=== PATIENT | female | born 1960 | race African-American/Black ===

== ENCOUNTER 2020-05-21 11:00 | Outpatient (RCR) | payer OTHER, SELFPAY ==
--- NOTE | 2020-05-05 17:07 | MHC.PT.EP ---
[facility] [place] [facility] [place] [facility] [place] [facility] [address] Juliet Guillen [address] [phone] F: [phone] F: [phone] F: [phone] F: [phone] Physical Therapy Plan of Care Date of Evaluation: 05/05/20 Date of Surgery: NA Diagnosis: WEAKNESS Assessment: Pt IS 59 YO F WITH MS REFERRED TO PT FROM DR MCDOWELL WITH WEAKNESS. Pt REPORTS SHE HAS BEEN FEELING WEAK AND STIFF SINCE SHE STARTED WORKING FROM HOME 8 MONTHS AGO ([employer]). PRESENTS WITH OVERALL DECREASE IN CORE/LE STRENGTH AND HIP FLEXIBILTY. Pt WITH DECREASED BAL (MS HX) AND SOME C/O B GROIN PAIN AT TIMES WITH GT. Pt SHOULD BENEFIT FROM PT TO HELP INCREASE OVERALL FLEXIBILITY AND STRENGTH WITH CONTINUING MONITORING OF PELVIC SYMMETRY (SINCE SHE FEELS OUT OF ALIGNMENT AND WORK ON BALANCE ALL TO IMPROVE FUNCTIONAL MOBILITY Frequency and Duration: The patient will be seen 2X/WK X 6 WEEKS Short Term Goals: 1. I HEP WITH DC EX PLAN 2. DECREASED GROIN PAIN AT LEAST 50% WITH GT Research Anthropologist Goals: 1. Pt TO REPORT IMPROVED ALIGNMENT 2. Pt TO REPORT OVERALL LESS STIFFNESS AND GENERALIZED WEAKNESS 3. HIP STRENGTH AT LEAST 4/5 T/O B 4. QUAD AND HS STRENGTH AT LEAST 4/5 EA B 5. IMPROVED LEFI Treatment Plan: Modalities to reduce pain, spasms and effusion. Manual therapy to restore motion and function. Therapeutic exercise to improve strength and flexibility. Neuromuscular re-education for posture and balance. Therapeutic activities to return to functional activities of daily living. Please sign and return to therapist. Thank you for your referral.
--- NOTE | 2020-05-05 17:07 | MHC.PT.EP ---
[facility] [place] Office [place] Office [place] [facility] [address] Juliet Guillen [address] [phone] F: [phone] F: [phone] F: [phone] F: [phone] Physical Therapy Plan of Care Date of Evaluation: 05/05/20 Date of Surgery: NA Diagnosis: WEAKNESS Assessment: Pt IS 59 YO F WITH MS REFERRED TO PT FROM DR MCDOWELL WITH WEAKNESS. Pt REPORTS SHE HAS BEEN FEELING WEAK AND STIFF SINCE SHE STARTED WORKING FROM HOME 8 MONTHS AGO ([employer]). PRESENTS WITH OVERALL DECREASE IN CORE/LE STRENGTH AND HIP FLEXIBILTY. Pt WITH DECREASED BAL (MS HX) AND SOME C/O B GROIN PAIN AT TIMES WITH GT. Pt SHOULD BENEFIT FROM PT TO HELP INCREASE OVERALL FLEXIBILITY AND STRENGTH WITH CONTINUING MONITORING OF PELVIC SYMMETRY (SINCE SHE FEELS OUT OF ALIGNMENT AND WORK ON BALANCE ALL TO IMPROVE FUNCTIONAL MOBILITY Frequency and Duration: The patient will be seen 2X/WK X 6 WEEKS Short Term Goals: 1. I HEP WITH DC EX PLAN 2. DECREASED GROIN PAIN AT LEAST 50% WITH GT Phone Banker Goals: 1. Pt TO REPORT IMPROVED ALIGNMENT 2. Pt TO REPORT OVERALL LESS STIFFNESS AND GENERALIZED WEAKNESS 3. HIP STRENGTH AT LEAST 4/5 T/O B 4. QUAD AND HS STRENGTH AT LEAST 4/5 EA B 5. IMPROVED LEFI Treatment Plan: Modalities to reduce pain, spasms and effusion. Manual therapy to restore motion and function. Therapeutic exercise to improve strength and flexibility. Neuromuscular re-education for posture and balance. Therapeutic activities to return to functional activities of daily living. Please sign and return to therapist. Thank you for your referral.
== END 2020-06-25 13:36 | disposition other institution (70) ==
LOC: HO.PT 11:00
PROVIDERS: PCP Internal Medicine; Visit Provider Internal Medicine
DX: R53.1 Weakness (principal)
CPT/HCPCS: 97110; 97162; 97530

== ENCOUNTER 2020-11-06 12:01 | Outpatient (REF) | payer OTHER, SELFPAY ==
[2020-11-06 13:15] LABS: Estimated Average Glucose 174 mg/dL; Hemoglobin A1c % 7.7 %
[2020-11-06 13:24] LABS: Creatinine Urine 79.99 mg/dL; Microalbum/Creatinine Ratio Ur 133.7 ug/mg cr
[2020-11-06 13:28] LABS: Alanine Aminotransferase 33 U/L (0-31); Alkaline Phosphatase 91 U/L (39-117); Anion Gap 15 (12-20); Aspartate Amino Transferase 33 U/L (5-31); Bilirubin Direct 0.2 mg/dL (0.0-0.5); Bilirubin Total 0.5 mg/dL (0.0-1.0); Blood Urea Nitrogen 14 mg/dL (9-16); Calcium 10.2 mg/dL (8.4-10.2); Carbon Dioxide 22 mmol/L (22-29); Chloride 107 mmol/L (96-108); Cholesterol 141 mg/dL; Estimated Glomerular Filt Rate > 60; Glucose Random 166 mg/dL (60-115); HDL Cholesterol 64 mg/dL; LDL Cholesterol Calculated 59 mg/dl; Potassium 4.7 mmol/L (3.3-5.1); Sodium 139 mmol/L (135-145); Total Protein 7.1 g/dL (6.5-8.0); Triglycerides 91 mg/dL
[2020-11-07 13:41] LABS: Calcium (PTHI) 10.3 mg/dL (8.6-10.4); PTHI 65 pg/mL (14-64)
== END 2020-11-06 12:02 | disposition home or self-care (01) ==
LOC: HO.LAB 12:01
PROVIDERS: PCP Internal Medicine; Referring Provider Internal Medicine; Visit Provider Internal Medicine Endocrinology, Diabetes & Metabolism
DX: E11.22 Type 2 diabetes mellitus with diabetic chronic kidney disease (principal); N18.9 Chronic kidney disease, unspecified; E55.9 Vitamin D deficiency, unspecified; E21.3 Hyperparathyroidism, unspecified
CPT/HCPCS: 36415; 80053; 80061; 80076; 82043; 82248; 82306; 83036; 83970

== ENCOUNTER 2021-02-12 13:30 | Outpatient (REF) | payer OTHER, SELFPAY | END 2021-02-12 13:31 | disposition home or self-care (01) | LOC: HO.HMGCLDS 13:30 | PROVIDERS: PCP Internal Medicine; Visit Provider Internal Medicine | DX: Z20.822 Contact with and (suspected) exposure to COVID-19 (principal) | CPT/HCPCS: U0003; U0005 ==

== ENCOUNTER 2021-03-10 09:50 | Outpatient (REF) | payer OTHER, SELFPAY ==
[2021-03-10 11:00] LABS: Estimated Average Glucose 140 mg/dL; Hemoglobin A1C 150.4757 umol/L; Hemoglobin A1c % 6.5 %
== END 2021-03-10 09:51 | disposition home or self-care (01) ==
LOC: HO.LAB 09:50
PROVIDERS: PCP Internal Medicine; Referring Provider Internal Medicine Endocrinology, Diabetes & Metabolism; Visit Provider Internal Medicine
DX: E11.9 Type 2 diabetes mellitus without complications (principal)
CPT/HCPCS: 36415; 83036

== ENCOUNTER 2021-04-10 14:05 | Outpatient (REF) | payer OTHER, SELFPAY ==
--- NOTE | ~2021-04-10 | XR_ITS ---
EXAMINATION: XR ANKLE, LEFT CLINICAL INFORMATION: Ligament sprain COMPARISON: None TECHNIQUE: AP, lateral, and mortise views of the left ankle. FINDINGS: No fracture or dislocation. The ankle mortise is congruent. No joint effusion. Anterior and lateral soft tissue swelling. XR/XR ankle LT min 3V IMPRESSION: Anterior and lateral soft tissue swelling without acute osseous abnormality.
== END 2021-04-10 14:06 | disposition home or self-care (01) ==
LOC: HO.HMGCX 14:05
PROVIDERS: PCP Internal Medicine; Visit Provider Internal Medicine
DX: S93.402A Sprain of unspecified ligament of left ankle, initial encounter (principal); X58.XXXA Exposure to other specified factors, initial encounter; Y93.9 Activity, unspecified; Y92.9 Unspecified place or not applicable; Y99.9 Unspecified external cause status
CPT/HCPCS: 73610

== ENCOUNTER 2021-04-29 11:11 | Outpatient (REF) | payer OTHER, SELFPAY ==
[2021-04-29 12:22] LABS: Estimated Average Glucose 140 mg/dL; Hemoglobin A1C 150.5621 umol/L; Hemoglobin A1c % 6.5 %
[2021-04-29 12:30] LABS: Hematocrit 38.2 % (37.0-47.0); Hemoglobin 12.6 g/dl (12.0-16.0); Mean Corpuscular Hemoglobin 24.8 pg (27.0-33.0); Mean Corpuscular Volume 75.2 fL (80.0-98.0); Platelet Count 226 X10*3/uL (160-400); Red Blood Count 5.08 X10*6/uL (4.20-5.50); Red Cell Distribution Width 15.8 % (11.0-16.0); White Blood Count 6.6 X10*3/uL (4.8-10.8)
[2021-04-29 12:49] LABS: Alanine Aminotransferase 30 U/L (0-31); Albumin Level 4.1 g/dL (3.5-5.0); Alkaline Phosphatase 72 U/L (39-117); Anion Gap 15 (12-20); Aspartate Amino Transferase 32 U/L (5-31); Bilirubin Total 0.4 mg/dL (0.0-1.0); Blood Urea Nitrogen 18 mg/dL (9-16); Calcium 10.5 mg/dL (8.4-10.2); Carbon Dioxide 23 mmol/L (22-29); Chloride 106 mmol/L (96-108); Cholesterol 130 mg/dL; Estimated Glomerular Filt Rate > 60; Glucose Fasting 118 mg/dL (60-99); HDL Cholesterol 52 mg/dL; LDL Cholesterol Calculated 59 mg/dl; Potassium 4.3 mmol/L (3.3-5.1); Sodium 140 mmol/L (135-145); Total Protein 7.5 g/dL (6.5-8.0); Triglycerides 96 mg/dL
[2021-04-29 13:00] LABS: Creatinine Urine 61.61 mg/dL; Microalbum/Creatinine Ratio Ur 220.7 ug/mg cr
[2021-04-29 13:06] LABS: TSH reflex Free T4 2.11 uIU/mL (0.32-4.0)
== END 2021-04-29 11:12 | disposition home or self-care (01) ==
LOC: HO.LAB 11:11
PROVIDERS: PCP Internal Medicine; Visit Provider Internal Medicine
DX: E11.9 Type 2 diabetes mellitus without complications (principal); E78.5 Hyperlipidemia, unspecified; E27.8 Other specified disorders of adrenal gland; I10 Essential (primary) hypertension; I21.4 Non-ST elevation (NSTEMI) myocardial infarction
CPT/HCPCS: 36415; 80053; 80061; 82043; 83036; 84443; 85027

== ENCOUNTER 2021-05-23 10:02 | Outpatient (REF) | payer OTHER, SELFPAY ==
--- NOTE | ~2021-05-23 | MM_ITS ---
EXAMINATION: MM SCREENING DIGITAL BREAST TOMOSYNTHESIS, BILATERAL CLINICAL INFORMATION: Screening. Asymptomatic. The lifetime risk of breast cancer based on the Tyrer-Cuzick Model is 6%. COMPARISON: Mammography: 02/29/2020, 02/23/2019, 01/12/2018 TECHNIQUE: Digital breast tomosynthesis is performed in both the craniocaudal and mediolateral oblique views along with computer-aided detection (CAD). Synthesized 2D images are generated from the tomosynthesis. FINDINGS: There are scattered areas of fibroglandular density (ACR BI-RADS breast composition Category b). There are no significant masses, abnormal calcifications, or other abnormalities. MM/MM tomosynthesis screening BI IMPRESSION: No mammographic evidence of malignancy. ASSESSMENT: BI-RADS 1: Negative RECOMMENDATION: Routine annual mammography screening. This patient's information was entered into a reminder system with a target due date for their next mammogram.
== END 2021-05-23 10:03 | disposition home or self-care (01) ==
LOC: HO.MAMMO 10:02
PROVIDERS: PCP Internal Medicine; Visit Provider Internal Medicine
DX: Z12.31 Encounter for screening mammogram for malignant neoplasm of breast (principal)
CPT/HCPCS: 77063; 77067

== ENCOUNTER 2021-05-26 14:25 | Outpatient (REF) | payer OTHER, SELFPAY ==
[2021-05-26 15:12] LABS: Influenza A PCR NEGATIVE (Negative); Influenza B PCR NEGATIVE (Negative); Resp Syncy Virus RNA Qual PCR NEGATIVE (Negative); SARS COV2 PCR INHOUSE POSITIVE (Negative)
== END 2021-05-26 14:26 | disposition home or self-care (01) ==
LOC: HO.LNP 14:25
PROVIDERS: Visit Provider Nurse Practitioner Family
DX: R52 Pain, unspecified (principal); Z20.822 Contact with and (suspected) exposure to COVID-19
CPT/HCPCS: 0241U

== ENCOUNTER 2021-06-17 12:28 | Outpatient (REF) | payer OTHER, SELFPAY | END 2021-06-17 12:29 | disposition home or self-care (01) | LOC: HO.LAB 12:28 | PROVIDERS: Visit Provider Internal Medicine | DX: Z13.89 Encounter for screening for other disorder (principal) | CPT/HCPCS: 87635; C9803 ==

== ENCOUNTER → 2021-08-12 15:40 | Outpatient (BNVA) | payer OTHER, SELFPAY | PROVIDERS: PCP Internal Medicine; Referring Provider Internal Medicine; Visit Provider Nurse Practitioner Family ==

== ENCOUNTER 2021-09-15 12:51 | Outpatient (REF) | payer OTHER, SELFPAY ==
[2021-09-15 13:58] LABS: Alanine Aminotransferase 33 U/L (0-31); Albumin Level 4.3 g/dL (3.5-5.0); Alkaline Phosphatase 79 U/L (39-117); Anion Gap 13 (12-20); Aspartate Amino Transferase 23 U/L (5-31); Bilirubin Total 0.5 mg/dL (0.0-1.0); Blood Urea Nitrogen 18 mg/dL (9-16); Calcium 10.8 mg/dL (8.4-10.2); Carbon Dioxide 25 mmol/L (22-29); Chloride 106 mmol/L (96-108); Cholesterol 160 mg/dL; Estimated Glomerular Filt Rate > 60; Glucose Random 139 mg/dL (60-115); HDL Cholesterol 70 mg/dL; LDL Cholesterol Calculated 76 mg/dl; Potassium 4.4 mmol/L (3.3-5.1); Sodium 140 mmol/L (135-145); Total Protein 7.6 g/dL (6.5-8.0); Triglycerides 70 mg/dL
[2021-09-15 14:14] LABS: Vitamin D 25-OH Total 95.1 ng/mL (>30)
[2021-09-15 14:33] LABS: Creatinine Urine 53.71 mg/dL
[2021-09-16 11:31] LABS: Calcium (PTHI) 10.7 mg/dL (8.6-10.4); PTHI 122 pg/mL (16-77)
== END 2021-09-15 12:52 | disposition home or self-care (01) ==
LOC: HO.LAB 12:51
PROVIDERS: Absent Provider Internal Medicine; PCP Internal Medicine; Visit Provider Internal Medicine Endocrinology, Diabetes & Metabolism
DX: E21.3 Hyperparathyroidism, unspecified (principal); E55.9 Vitamin D deficiency, unspecified; E11.9 Type 2 diabetes mellitus without complications
CPT/HCPCS: 36415; 80053; 80061; 82043; 82306; 83970

== ENCOUNTER 2021-10-26 08:32 | Day surgery (SDC) | payer OTHER, SELFPAY ==
[2021-10-21 09:25] VITALS: BMI 37.0
--- NOTE | 2021-10-23 13:00 | P.CONAN_ITS ---
Documented by User: Rose Zhang NP 10/23/21 13:50 HPI - Anesthesia Eval Consult details Narrative: 61yo F for Colonoscopy Cardiac cleared Plavix/asa s/p stent 2018, [facility] Active Problems Active Problems: All Active Problems (Updated 10/21/21 @ 09:21 by Nydia Vargas RN) Paronychia (Acute) Sprain of ankle (Acute) Exposure to confirmed case of COVID-19 (Acute) Body aches (Acute) Goiter (Acute) Normal colonoscopy (Acute) Multiple sclerosis (Acute) Annual physical exam (Acute) Adrenal mass (Acute) HTN (hypertension) (Acute) Hyperlipidemia (Acute) NSTEMI (non-ST elevated myocardial infarction) (Acute) DM type 2 (diabetes mellitus, type 2) (Acute) Weakness (Acute) Past Medical History Medical History (Updated 10/21/21 @ 09:21 by Nydia Vargas RN) Adrenal mass Annual physical exam Crohn's disease DM type 2 (diabetes mellitus, type 2) Goiter History of COVID-19 History of heart attack HTN (hypertension) Hyperlipidemia Multiple sclerosis Normal colonoscopy NSTEMI (non-ST elevated myocardial infarction) Weakness Family History Family History (Updated 08/12/21 @ 15:51 by GRAHAM [facility]clean) Mother Lung cancer Diabetes Heart disease Sister Diabetes HTN (hypertension) Sister Family history of thyroid problem HTN (hypertension) Surgical History Surgical History (Updated 10/21/21 @ 09:17 by Nydia Vargas RN) H/O colonoscopy History of esophagogastroduodenoscopy (EGD) Social History Social History Housing: Condominium Patient Tobacco Use Status: Former Tobacco user Quit Date: over 20 years ago Tobacco use type: Cigarette Smoked in Last 30 Days: No e-Cigarette/Vaping Use: Never Used Use of substances other than those prescribed or required for medical reasons: No Are you DNR?: No Advance Directives: No Advance Directives Information Provided: Yes Recently lost weight without trying: No Current occupational status: employed Meds Allergies Allergy/AdvReac Type Severity Reaction Status Date / Time KARIN Inhibitors Allergy Severe LIP Verified 08/12/21 15:48 [KARIN INHIBITORS] SWELLING amoxicillin [AMOXICILLIN] Allergy Severe THROAT Verified 08/12/21 15:48 ITCHING, throat irritation Iodinated Contrast Media Allergy Severe HIVES/VOMIT Verified 08/12/21 15:48 [IODINATED CONTRAST MEDIA - ING IV DYE] benazepril Allergy Intermediate angioedema Verified 10/21/21 09:14 celecoxib [Celebrex] Allergy Intermediate hives Verified 10/21/21 09:14 atorvastatin AdvReac Severe severe GI Verified 10/21/21 09:14 side effects all nsaids (leave per Allergy Intermediate renal Uncoded 10/21/21 09:14 Gisela) iodine Allergy Intermediate vomiting Uncoded 10/21/21 09:14 Home Medications Medication Instructions Recorded Confirmed Last Taken Type aspirin 81 mg tablet,delayed 81 mg PO DAILY 02/10/21 10/21/21 Unknown History release carvedilol 12.5 mg tablet 12.5 mg PO BID 02/10/21 10/21/21 Unknown History clopidogrel 75 mg tablet 75 mg PO DAILY 02/10/21 10/21/21 Unknown History felodipine 10 mg tablet,extended 10 mg PO DAILY 02/10/21 10/21/21 Unknown History release 24 hr losartan 100 mg tablet 100 mg PO DAILY 02/10/21 10/21/21 Unknown History metformin 500 mg tablet,extended 500 mg PO BID 02/10/21 10/21/21 Unknown History release 24 hr rosuvastatin 20 mg tablet 20 mg PO DAILY 02/10/21 10/21/21 Unknown History empagliflozin 25 mg tablet 25 mg PO DAILY 08/07/21 10/21/21 Unknown History (Jardiance) Exam Exam Date and Time: October 23, 2021 1300 Height,Weight and Vital Signs: Height 5 ft 1 in Weight 88.904 kg Pertinent Lab Results Pertinent Lab Results: Laboratory Tests 04/29/21 09/15/21 11:26 13:00 WBC 6.6 Hgb 12.6 Hct 38.2 Plt Count 226 Sodium 140 Potassium 4.4 Chloride 106 Carbon Dioxide 25 BUN 18 H Creatinine 0.77 Narrative Narrative: EKG 10/2021 NSR with nonspecific T wave abn, no signif change from 12/2020 Assessment and Plan Assessment Anesthesia Assessment: Chart Reviewed Documented by User: Yamilet Flores MD 10/26/21 09:56 [facility] Past Medical History Medical History (Updated 10/21/21 @ 09:21 by Nydia Vargas, RN) Adrenal mass Annual physical exam Crohn's disease DM type 2 (diabetes mellitus, type 2) Goiter History of COVID-19 History of heart attack HTN (hypertension) Hyperlipidemia Multiple sclerosis Normal colonoscopy NSTEMI (non-ST elevated myocardial infarction) Weakness Family History Family History (Updated 08/12/21 @ 15:51 by GRAHAM Mclean) Mother Lung cancer Diabetes Heart disease Sister Diabetes HTN (hypertension) Sister Family history of thyroid problem HTN (hypertension) Family history of problems with anesthesia: No Surgical History Surgical History (Updated 10/21/21 @ 09:17 by Nydia Vargas RN) H/O colonoscopy History of esophagogastroduodenoscopy (EGD) History of Problems with Anesthesia: No Social History Social History Housing: Condominium Patient Tobacco Use Status: Former Tobacco user Quit Date: over 20 years ago Tobacco use type: Cigarette Smoked in Last 30 Days: No e-Cigarette/Vaping Use: Never Used Use of substances other than those prescribed or required for medical reasons: No Are you DNR?: No Advance Directives: No Advance Directives Information Provided: Yes Recently lost weight without trying: No Current occupational status: employed Meds Allergies Allergy/AdvReac Type Severity Reaction Status Date / Time KARIN Inhibitors Allergy Severe LIP Verified 08/12/21 15:48 [KARIN INHIBITORS] SWELLING amoxicillin [AMOXICILLIN] Allergy Severe THROAT Verified 08/12/21 15:48 ITCHING, throat irritation Iodinated Contrast Media Allergy Severe HIVES/VOMIT Verified 08/12/21 15:48 [IODINATED CONTRAST MEDIA - ING IV DYE] benazepril Allergy Intermediate angioedema Verified 10/21/21 09:14 celecoxib [Celebrex] Allergy Intermediate hives Verified 10/21/21 09:14 atorvastatin AdvReac Severe severe GI Verified 10/21/21 09:14 side effects all nsaids (leave per Allergy Intermediate renal Uncoded 10/21/21 09:14 Gisela) iodine Allergy Intermediate vomiting Uncoded 10/21/21 09:14 Home Medications Medication Instructions Recorded Confirmed Last Taken Type aspirin 81 mg tablet,delayed 81 mg PO DAILY 02/10/21 10/21/21 Unknown History release carvedilol 12.5 mg tablet 12.5 mg PO BID 02/10/21 10/21/21 Unknown History clopidogrel 75 mg tablet 75 mg PO DAILY 02/10/21 10/21/21 Unknown History felodipine 10 mg tablet,extended 10 mg PO DAILY 02/10/21 10/21/21 Unknown History release 24 hr losartan 100 mg tablet 100 mg PO DAILY 02/10/21 10/21/21 Unknown History metformin 500 mg tablet,extended 500 mg PO BID 02/10/21 10/21/21 Unknown History release 24 hr rosuvastatin 20 mg tablet 20 mg PO DAILY 02/10/21 10/21/21 Unknown History empagliflozin 25 mg tablet 25 mg PO DAILY 08/07/21 10/21/21 Unknown History (Jardiance) Exam Airway Mallampati Class: II (Multiple caps all over) TM Dist: >3cm Neck ROM: Full Heart: rrr Lungs: cta Assessment and Plan Assessment Anesthesia Assessment: Anesthesia Plan Discussed Final Anesthetic Review Family History of Problems with Anesthesia: No History of Problems with Anesthesia: No NPO: Yes ASA Class: III Final Preanesthetic Review: No Changes in Pt Med Stat, Meds/Allgs Chart Reviewed and Consent Obtained/Reviewed Patient Risk: Intermediate Procedure Risk: Intermediate Anesthetic Plan Anesthetic Plan: MAC: Disposition: Standard PACU
[2021-10-26 09:23] VITALS: BMI 37.0
[2021-10-26 09:36] VITALS: BP 125/71; PULSE 58; RESP 16; TEMP 36.2; O2SAT 96
[2021-10-26] MEDS: Lactated Ringers 1,000 ML 100 ML IVCONT (09:50)
[2021-10-26 09:54] LABS: Glucose, Whole Blood 133 mg/dL (60-115)
--- NOTE | 2021-10-26 09:56 | P.HPSUR_ITS ---
Pre-Procedural Eval Section A Date of Service: 10/26/21 The patient is an INPATIENT: No The History & Physical has been completed within 30 days and I have reviewed it.: No Section B Chief Complaint: screening Details of Present Illness: Colon cancer screening, history of Crohn's disease Relevant Family History (Specify if Yes): No Relevant Social History: Tobacco Use (Former smoker) Present Medications: see Short Stay Collaborative assessment Medical History: Significant History (Adrenal mass Annual physical exam Crohn's disease DM type 2 (diabetes mellitus, type 2) Goiter History of heart attack HTN (hypertension) Hyperlipidemia Multiple sclerosis Normal colonoscopy NSTEMI (non- ST elevated myocardial infarction) Weakness) History of Previous Operations: Relevant previous surgery/procedure and date(s) (History of EGD, history of colonoscopies) Allergies: Allergies Allergy/AdvReac Type Severity Reaction Status Date / Time KARIN Inhibitors Allergy Severe LIP Verified 08/12/21 15:48 [KARIN INHIBITORS] SWELLING amoxicillin [AMOXICILLIN] Allergy Severe THROAT Verified 08/12/21 15:48 ITCHING, throat irritation Iodinated Contrast Media Allergy Severe HIVES/VOMIT Verified 08/12/21 15:48 [IODINATED CONTRAST MEDIA - ING IV DYE] benazepril Allergy Intermediate angioedema Verified 10/21/21 09:14 celecoxib [Celebrex] Allergy Intermediate hives Verified 10/21/21 09:14 atorvastatin AdvReac Severe severe GI Verified 10/21/21 09:14 side effects all nsaids (leave per Allergy Intermediate renal Uncoded 10/21/21 09:14 Gisela) iodine Allergy Intermediate vomiting Uncoded 10/21/21 09:14 Review of Systems Sugical H&P ROS: Negative: Constitution, Cardiovascular, Respiratory and Gastrointestinal Exam Surgical H&P Exam: Normal: Heart, Normal: Lungs, Normal: Extremities and Normal: Abdomen Plan Diagnosis/Plan: Unchanged I have reviewed the history and physical and performed a pertinent physical examination on my patient. No changes have occurred unless specified.
--- NOTE | 2021-10-26 10:00 | PC.NURSE ---
MD BARRETO AWARE THAT PATIENT TOOK HER ASA AND PLAVIX YESTERDAY.
--- NOTE | 2021-10-26 10:45 | P.BOP_ITS ---
Brief Operative Note Date of Service: 10/26/21 Pre-op diagnosis: Colon cancer screening, follow-up of Crohn's disease Post-op diagnosis: other (Colon polyps, diverticulosis, inactive Crohn's) Procedure: COLONOSCOPY TILL CECUM WITH BIOPSIES AND CHROMOENDOSCOPY Consent: Indications for the procedure and potential complications of bleeding, perforation, reaction to medications and missed diagnosis were discussed with the patient and informed consent was obtained. Instrument: Olympus PCF H 190 L variable stiffness pediatric colonoscope Monitoring: Vital signs and clinical assessment, intermittent blood pressure monitoring, continuous EKG monitoring, Pulse oximetry and Carbon Dioxide monitoring were done throughout the procedure. Colon withdrawl time was 22 minutes. Procedure: The patient was placed in the left lateral decubitis position and pre-procedure medications were administered. After a digital rectal examination of the ano-rectum, the video colonoscope was inserted into the rectum and advanced through the colon to the cecum. The colonoscope was slowly withdrawn in a retrograde panoramic fashion and the colon mucosa was carefully examined using chromoendoscopy with methylene blue (50 mg diluted in 240 ml) including a retroflexed view of the rectum. Findings and interventions are described below. Procedure Difficulty: Without difficulty Findings: Note: Chromoendoscopy with methylene blue was used to examine the colonic mucosa Terminal Ileum: Distal 7-8 cm was examined and appeared normal Cecum: Normal Ascending Colon: Normal Transverse Colon: A 4-5 mm sessile polyp removed with a cold biopsy Descending Colon: Normal Sigmoid Colon: A 4-5 mm sessile polyp removed with a cold bx. Mild diverticulosis Rectum: Normal Ano-rectum: Normal Colon preparation: Good Impression and Post Procedure Diagnosis: Colonoscopy Findings: Two small polyps removed Mild diverticulosis seen in the sigmoid colon Plan: Await pathology results Patient has an appointment on 11/09/21 in the GI Clinic with Katerin Demarco FNP-BC . Repeat Colonoscopy interval based on path - in 2-3 years if polyps are adenomatous and if no dysplasia on biopsies for Crohn's disease surveillance. Above findings were reviewed with the patient and colon polyps and Crohn's disease handouts were given in the discharge area Surgeon: Alvino Villarreal MD Anesthesia: MAC (Dr Hernández) Was an Pottery Decoration Designer used for this Procedure?: Yes Pottery Decoration Designer: Deanne Gardner Estimated blood loss (mL): 0 Pathology: other (NOTE: chromoendoscopy with methylene blue dye A. right colon biopsies, R/O dysplasia B. transverse colon bxs, R/O dysplasia C. transverse colon polyp D. sigmoid polyp E. left ) Condition: stable Disposition: PACU
[2021-10-26 10:51] VITALS: BP 121/64; PULSE 60; RESP 16; TEMP 36.1; O2SAT 94
[2021-10-26 11:06] VITALS: BP 130/67; PULSE 53; RESP 16; TEMP 36.1; O2SAT 96
--- NOTE | 2021-10-26 15:33 | P.OP_ITS ---
Operative Note Operative Note Date of Service: 10/26/21 Narrative: Pre-op diagnosis: Colon cancer screening, follow-up of Crohn's disease Post-op diagnosis:?other (Colon polyps, diverticulosis, inactive Crohn's) Procedure: COLONOSCOPY TILL CECUM WITH BIOPSIES AND CHROMOENDOSCOPY Consent: Indications for the procedure and potential complications of bleeding, perforation, reaction to medications and missed diagnosis were discussed with the patient and informed consent was obtained. Instrument: Olympus PCF H 190 L variable stiffness pediatric colonoscope Monitoring: Vital signs and clinical assessment, intermittent blood pressure monitoring, continuous EKG monitoring, Pulse oximetry and Carbon Dioxide monitoring were done throughout the procedure. Colon withdrawl time was 22 minutes. Procedure: The patient was placed in the left lateral decubitis position and pre-procedure medications were administered. After a digital rectal examination of the ano-rectum, the video colonoscope was inserted into the rectum and advanced through the colon to the cecum. The colonoscope was slowly withdrawn in a retrograde panoramic fashion and the colon mucosa was carefully examined using chromoendoscopy with methylene blue (50 mg diluted in 240 ml)? including a retroflexed view of the rectum. Findings and interventions are described below. Procedure Difficulty: Without difficulty Findings:? Note: Chromoendoscopy with methylene blue was used to examine the colonic mucosa Terminal Ileum: Distal 7-8 cm was examined and appeared normal Cecum:? Normal Ascending Colon:? Normal Transverse Colon:? A 4-5 mm sessile polyp removed with a cold biopsy Descending Colon:? Normal Sigmoid Colon:? A 4-5 mm sessile polyp removed with a cold bx. Mild diverticulosis Rectum:? Normal Ano-rectum:? Normal Colon preparation:? Good? Impression and Post Procedure Diagnosis: Colonoscopy Findings: Two small polyps removed Mild diverticulosis seen in the sigmoid colon Plan: Await pathology results Patient has an appointment on 11/09/21 in the GI Clinic with ? Katerin Demarco, ANALYTICS DEVELOPER-BRENDA . Repeat Colonoscopy interval based on path - in 2-3 years if polyps are adenomatous and if no dysplasia on biopsies for Crohn's disease surveillance. Above findings were reviewed with the patient and colon polyps and Crohn's disease handouts were given in the discharge area Surgeon: Alvino Villarreal MD Anesthesia:?MAC (Dr Hernández) Was an [employer] used for this Procedure?:?Yes [employer]:?Deanne Gardner Estimated blood loss (mL):?0 Pathology:?other (NOTE: chromoendoscopy with methylene blue dye? A. right colon biopsies, R/O dysplasia? B. transverse colon bxs, R/O dysplasia? C. transverse colon polyp? D. sigmoid polyp? E. left ) Condition:?stable Disposition:?PACU
== END 2021-10-26 11:28 | disposition home or self-care (01) ==
PROVIDERS: PCP Internal Medicine; Visit Provider Internal Medicine Gastroenterology
PROC: 0DJD8ZZ Inspection of Lower Intestinal Tract, Via Natural or Artificial Opening Endoscopic (ICD-10-PCS; CPT 45378; principal; 2021-10-26 10:10)
DX: Z12.11 Encounter for screening for malignant neoplasm of colon (principal); K63.5 Polyp of colon; K57.30 Diverticulosis of large intestine without perforation or abscess without bleeding; K50.90 Crohn's disease, unspecified, without complications; G35 Multiple sclerosis; I25.2 Old myocardial infarction; I10 Essential (primary) hypertension; E78.5 Hyperlipidemia, unspecified; D35.00 Benign neoplasm of unspecified adrenal gland; E11.9 Type 2 diabetes mellitus without complications; Z79.84 Long term (current) use of oral hypoglycemic drugs; Z79.02 Long term (current) use of antithrombotics/antiplatelets; Z79.82 Long term (current) use of aspirin; Z79.899 Other long term (current) drug therapy; Z88.0 Allergy status to penicillin; Z88.8 Allergy status to other drugs, medicaments and biological substances; Z91.041 Radiographic dye allergy status; Z87.891 Personal history of nicotine dependence; Z86.16 Personal history of COVID-19
CPT/HCPCS: 45380; 45399; 82947; 88305; Q9968

== ENCOUNTER → 2021-11-09 13:01 | Outpatient (BNVA) | payer OTHER, SELFPAY | PROVIDERS: PCP Internal Medicine; Referring Provider Internal Medicine; Visit Provider Nurse Practitioner Family | DX: Z13.89 Encounter for screening for other disorder (principal) ==

== ENCOUNTER 2021-11-27 13:29 | Outpatient (REF) | payer OTHER, SELFPAY ==
--- NOTE | ~2021-11-27 | XR_ITS ---
EXAMINATION: XR SHOULDER, RIGHT CLINICAL INFORMATION: Shoulder pain, trauma COMPARISON: None TECHNIQUE: AP external rotation, Grashey, scapular Y, and axillary views of the right shoulder. FINDINGS: 3 views of the right shoulder show a tiny osseous fragment lateral to the humeral head, perhaps a tiny chip fracture. The humeral head remains located in the glenohumeral articulation intact. Acromioclavicular joint is also intact. XR/XR shoulder RT min 2V IMPRESSION: Question tiny chip fracture of the lateral aspect of the humeral head as described above. Suggest correlation with site of pain and mechanism of injury.
== END 2021-11-27 13:30 | disposition home or self-care (01) ==
LOC: HO.HMGCX 13:29
PROVIDERS: PCP Internal Medicine; Visit Provider Physician Assistant Medical
DX: M25.511 Pain in right shoulder (principal); W19.XXXA Unspecified fall, initial encounter
CPT/HCPCS: 73030

== ENCOUNTER 2021-12-14 07:09 | Outpatient (REF) | payer OTHER, SELFPAY ==
--- NOTE | ~2021-12-14 | XR_ITS ---
EXAMINATION: XR SHOULDER, RIGHT CLINICAL INFORMATION: Pain. COMPARISON: Radiographs dated 11/27/2021. TECHNIQUE: AP external rotation, Grashey, scapular Y, and axillary views of the right shoulder. FINDINGS: Bony alignment and mineralization are normal. The right glenohumeral joint is intact. There is narrowing of the rotator cuff interval, a distal acromial undersurface osteophyte is seen, and there is cortical irregularity of the greater tuberosity of the proximal right humerus. No fracture or dislocation is seen. The acromioclavicular and coracoclavicular intervals are normal. There is no unusual soft tissue calcification. No foreign body is seen. There is no right pneumothorax. XR/XR shoulder RT min 2V IMPRESSION: Findings are consistent with right rotator cuff impingement. No fracture or dislocation is seen.
== END 2021-12-14 07:10 | disposition home or self-care (01) ==
LOC: HO.HOSX 07:09
PROVIDERS: Visit Provider Physician Assistant
DX: M25.511 Pain in right shoulder (principal)
CPT/HCPCS: 73030

== ENCOUNTER 2022-01-02 15:22 | Outpatient (REF) | payer OTHER, SELFPAY ==
[2022-01-02 15:29] LABS: Appearance Urine HAZY; Color Urine YELLOW; Glucose Urine UA >=1000 MG/DL (NEG); Leukocyte Esterase Urine 2+ (NEG); Nitrite Urine NEG (NEG); UACC Culture Trigger YES; Urine Blood TRACE (NEG); Urine Ketones NEG (NEG); Urine Protein TRACE MG/DL (NEG-TRACE)
[2022-01-02 15:41] LABS: Bacteria Urine 3+ /LPF; RBC Urine 0-2 /HPF (0); Squamous Epithelial Cell Urine 1+ /LPF
== END 2022-01-02 15:23 | disposition home or self-care (01) ==
LOC: HO.LNP 15:22
PROVIDERS: Visit Provider Physician Assistant Medical
DX: R30.0 Dysuria (principal)
CPT/HCPCS: 81001; 87086; 87147

== ENCOUNTER 2022-01-28 15:00 | Outpatient (RCR) | payer OTHER, SELFPAY ==
--- NOTE | 2021-12-18 10:42 | MHC.PT.EP ---
[facility] [place] Office [place] Office [place] Office [address] Juliet Guillen [address] [phone] F: [phone] F: [phone] F: [phone] F: [phone] Physical Therapy Plan of Care Date of Evaluation: Date of Surgery: n/a Diagnosis: displaced fx of R humerus Assessment: Patient is a 61 year old female presenting to PT with complaints of pain in her R shoulder. Pt reports onset of pain began 11/26/2021 due to a fall at work in which she landed on her out stretched arm. She presents today with impairments in pain, ROM, shoulder strength and posture. 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 Pt expresses [facility] goal of reducing pain, and is motivated to work towards this in PT. Clinical presentation today is most consistent with signs and sx associated with displaced fx of R humerus and pt will benefit from skilled PT to address the following problems and impairments noted upon evaluation: pain began 11/26/2021 due to a fall at work in which she landed on her out stretched arm. She presents today with impairments in pain, ROM, shoulder strength and posture. These problems limit the patient with the following functional activities: reaching, ADLs, lifting. The prescribed treatment plan of care is medically necessary. Co-morbidities of T2DM, multiple sclerosis, HTN, hx of NM 2019, hx B knee replacements were identified and taken into considerations of plan of care. Pt was educated on HEP, role of PT, prognosis, POC. Frequency and Duration: The patient will be seen 2 x week x 5 weeks Short Term Goals: Pt will demonstrate improved AROM to equal B in 3 weeks. Pt will demonstrate improved shoulder MMT by 1/3 grade in 3 weeks. Pt will demonstrate improved postural awareness by sitting with biomechanically correct posture without cues throughout session to improve overall postural function in 2 weeks. Director Of Healthcare Systems Goals: Pt will demonstrate improved SPADI score by 13 points in 5 weeks for improved functional mobility. Pt will demonstrate full shoulder strength of 5/5 MMT in 5 weeks for return to PLOF. Pt will demonstrate ability to reach and lift with min to no pain n 5 weeks for improved tolerance to ADLs. Treatment Plan: Modalities to reduce pain, spasms and effusion. Manual therapy to restore motion and function. Therapeutic exercise to improve strength and flexibility. Neuromuscular re-education for posture and balance. Therapeutic activities to return to functional activities of daily living. Electronically signed by: Yue Bowling, PT, DPT, ATC Please sign and return to therapist. Thank you for your referral.
--- NOTE | 2022-01-28 15:53 | MHC.PT.DC ---
[facility] [place] Office [place] Office [place] Office [address] Juliet Guillen [address] [phone] F: [phone] F: [phone] F: [phone] F: [phone] Physical Therapy Discharge Report Diagnosis: displaced fx of R humerus Date of Surgery: n/a Date of Evaluation: 12/18/21 Date of Discharge: 01/28/22 Treatments to Date: 9 Cancellations to Date: 3 No Shows to Date: 2 Discharge Status: Recommend MD Follow-up Discharge Summary: Pt continues to experience high pain levels with activity. She has now completed 9 visits of PT. Reassessed all objective measures today and minimal to no improvement noted in strength and ROM since start of care. Pt also currently scoring significantly worse on SPADI today compared to initial assessment. Unclear on compliance with HEP at home. Pt is also often 10-20 minutes late to her appointments and question if this has an impact on progress. Due to lack of progress and possibly even worsening since start of care it is not appropriate to continue with skilled PT at this time. Discussed this with the pt today and she demonstrates understanding. She is scheduled to follow up with ortho on 02/19/2022 and advised her to attend this and discuss her continued high pain and lack of improvement with them. Pt to follow up with ortho for further mangement. Electronically signed by: Yue Bowling, PT, DPT, ATC Please sign and return to therapist. Thank you for your referral.
== END 2022-01-28 15:53 | disposition home or self-care (01) ==
LOC: HO.PTCHIC 15:00
PROVIDERS: PCP Internal Medicine; Visit Provider Physician Assistant
DX: S42.251A Displaced fracture of greater tuberosity of right humerus, initial encounter for closed fracture (principal)
CPT/HCPCS: 97014; 97110; 97162

== ENCOUNTER 2022-02-19 12:43 | Outpatient (REF) | payer OTHER, SELFPAY ==
--- NOTE | ~2022-02-19 | XR_ITS ---
EXAMINATION: XR SHOULDER, RIGHT CLINICAL INFORMATION: Pain COMPARISON: Right shoulder x-rays December 14, 2021 TECHNIQUE: Three views of the right shoulder. FINDINGS: Visualized portion of the proximal right humerus demonstrates no fracture. Humeral head demonstrates good articulation with the glenoid fossa. Small osteophytes noted along the superior glenoid and inferior margin of the acromion. Mild hypertrophic changes of the right acromioclavicular joint. Right-sided ribs and lung parenchyma are unremarkable. XR/XR shoulder RT min 2V IMPRESSION: Similar mild degenerative changes of the right shoulder.
== END 2022-02-19 12:44 | disposition home or self-care (01) ==
LOC: HO.HOSX 12:43
PROVIDERS: Visit Provider Physician Assistant
DX: M25.511 Pain in right shoulder (principal)
CPT/HCPCS: 73030

== ENCOUNTER 2022-05-03 09:59 | Outpatient (REF) | payer OTHER, SELFPAY ==
[2022-05-03 10:56] LABS: Hematocrit 37.7 % (37.0-47.0); Hemoglobin 12.3 g/dl (12.0-16.0); Mean Corpuscular HGB Conc 32.6 g/dl (31.0-35.0); Mean Corpuscular Hemoglobin 25.8 pg (27.0-33.0); Mean Corpuscular Volume 79.2 fL (80.0-98.0); Platelet Count 250 X10*3/uL (160-400); Red Blood Count 4.76 X10*6/uL (4.20-5.50); Red Cell Distribution Width 15.5 % (11.0-16.0); White Blood Count 7.1 X10*3/uL (4.8-10.8)
[2022-05-03 11:15] LABS: Estimated Average Glucose 160 mg/dL; Hemoglobin A1c % 7.2 %
[2022-05-03 11:34] LABS: Appearance Urine Clear; Color Urine Yellow; Glucose Urine UA >=1000 mg/dL (Negative); Leukocyte Esterase Urine Negative (Negative); Nitrite Urine Negative (Negative); PH 6.5 (5.0-9.0); UMIC TRIGGER UACC YES; Urine Blood Negative (Negative); Urine Ketones Negative (Negative); Urine Protein Negative (Neg-Trace)
[2022-05-03 11:39] LABS: Bacteria Urine None Seen (None Seen); Hyaline Casts Urine 0-2 /LPF (0-2); RBC Urine 0-2 /HPF (0-2); Squamous Epithelial Cell Urine 0-2 /HPF (0-2); WBC Urine 0-5 /HPF (0-5)
[2022-05-03 12:05] LABS: Alanine Aminotransferase 34 U/L (0-31); Albumin Level 4.1 g/dL (3.5-5.0); Alkaline Phosphatase 95 U/L (39-117); Anion Gap 15 (12-20); Aspartate Amino Transferase 30 U/L (5-31); Bilirubin Total 0.4 mg/dL (0.0-1.0); Blood Urea Nitrogen 16 mg/dL (9-16); Calcium 10.2 mg/dL (8.4-10.2); Carbon Dioxide 24 mmol/L (22-29); Chloride 107 mmol/L (96-108); Cholesterol 161 mg/dL; Estimated Glomerular Filt Rate > 60; Glucose Fasting 167 mg/dL (60-99); HDL Cholesterol 69 mg/dL; LDL Cholesterol Calculated 75 mg/dl; Potassium 3.9 mmol/L (3.3-5.1); Sodium 142 mmol/L (135-145); Total Protein 7.2 g/dL (6.5-8.0); Triglycerides 87 mg/dL
[2022-05-03 12:12] LABS: TSH reflex Free T4 2.32 uIU/mL (0.32-4.0)
== END 2022-05-03 10:00 | disposition home or self-care (01) ==
LOC: HO.LABR 09:59
PROVIDERS: Physician Assistant Medical; PCP Internal Medicine; Visit Provider Internal Medicine Endocrinology, Diabetes & Metabolism
DX: R30.0 Dysuria (principal); E21.3 Hyperparathyroidism, unspecified; I10 Essential (primary) hypertension; E11.9 Type 2 diabetes mellitus without complications; E78.5 Hyperlipidemia, unspecified; E55.9 Vitamin D deficiency, unspecified
CPT/HCPCS: 36415; 80053; 80061; 81001; 83036; 84443; 85027

== ENCOUNTER 2022-07-22 18:02 | Outpatient (REF) | payer OTHER, SELFPAY ==
[2022-07-22 19:16] LABS: Influenza A PCR NEGATIVE (Negative); Influenza B PCR NEGATIVE (Negative); Resp Syncy Virus RNA Qual PCR NEGATIVE (Negative); SARS COV2 PCR INHOUSE NEGATIVE (Negative)
== END 2022-07-22 18:03 | disposition home or self-care (01) ==
LOC: HO.LNP 18:02
PROVIDERS: Visit Provider Physician Assistant Medical
DX: Z20.822 Contact with and (suspected) exposure to COVID-19 (principal); R05.9 Cough, unspecified
CPT/HCPCS: 0241U

== ENCOUNTER 2022-09-06 11:45 | Outpatient (REF) | payer OTHER, SELFPAY ==
--- NOTE | ~2022-09-06 | XR_ITS ---
EXAMINATION: XR FOOT, RIGHT CLINICAL INFORMATION: Right foot contusion. COMPARISON: None available. TECHNIQUE: AP, lateral, and oblique views of the right foot. An indicator arrow points to the proximal phalanx of the fifth digit. FINDINGS: There is an acute, nondisplaced fracture of the proximal phalanx of the fifth digit. The remainder the digits are intact. Mild to moderate first metatarsophalangeal degenerative joint changes are seen. The tarsal bones are normally aligned. Small plantar and retrocalcaneal spurs are noted. There is mild soft tissue swelling. XR/XR foot RT min 3V IMPRESSION: 1. Acute, nondisplaced fracture of the proximal phalanx of the fifth digit with mild soft tissue swelling. 2. 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 3. Small degenerative calcaneal spurs.
== END 2022-09-06 11:46 | disposition home or self-care (01) ==
LOC: HO.HMGCX 11:45
PROVIDERS: PCP Internal Medicine; Visit Provider Internal Medicine
DX: S90.31XA Contusion of right foot, initial encounter (principal)
CPT/HCPCS: 73630

== ENCOUNTER → 2022-09-22 11:15 | Outpatient (BNVA) | payer OTHER, SELFPAY | PROVIDERS: PCP Internal Medicine; Visit Provider Physician Assistant | DX: Z13.89 Encounter for screening for other disorder (principal) ==

== ENCOUNTER 2022-11-02 09:47 | Outpatient (REF) | payer OTHER, SELFPAY ==
[2022-11-02 12:10] LABS: Alanine Aminotransferase 23 U/L (0-31); Albumin Level 4.1 g/dL (3.5-5.0); Alkaline Phosphatase 88 U/L (39-117); Anion Gap 15 (12-20); Aspartate Amino Transferase 18 U/L (5-31); Bilirubin Total 0.5 mg/dL (0.0-1.0); Blood Urea Nitrogen 13 mg/dL (9-16); Calcium 10.5 mg/dL (8.4-10.2); Carbon Dioxide 23 mmol/L (22-29); Chloride 109 mmol/L (96-108); Cholesterol 145 mg/dL; Estimated Glomerular Filt Rate > 60; Glucose Random 163 mg/dL (60-115); HDL Cholesterol 68 mg/dL; LDL Cholesterol Calculated 59 mg/dl; Sodium 143 mmol/L (135-145); Total Protein 7.1 g/dL (6.5-8.0); Triglycerides 94 mg/dL
[2022-11-02 12:30] LABS: Vitamin D 25-OH Total 48.4 ng/mL (>30)
[2022-11-02 12:30] LABS: Creatinine Urine 41.25 mg/dL; Microalbum/Creatinine Ratio Ur 332.1 ug/mg cr
[2022-11-03 13:39] LABS: Calcium (PTHI) 10.3 mg/dL (8.6-10.4); PTHI 161 pg/mL (16-77)
== END 2022-11-02 09:48 | disposition home or self-care (01) ==
LOC: HO.LAB 09:47
PROVIDERS: Internal Medicine Endocrinology, Diabetes & Metabolism; PCP Internal Medicine; Visit Provider Internal Medicine
DX: E21.3 Hyperparathyroidism, unspecified (principal); E55.9 Vitamin D deficiency, unspecified; E11.9 Type 2 diabetes mellitus without complications
CPT/HCPCS: 36415; 80053; 80061; 82043; 82306; 83970

== ENCOUNTER 2022-11-16 12:29 | Outpatient (REF) | payer OTHER, SELFPAY ==
--- NOTE | ~2022-11-16 | MM_ITS ---
EXAMINATION: MM SCREENING DIGITAL BREAST TOMOSYNTHESIS, BILATERAL CLINICAL INFORMATION: Due for yearly. Patient notes right breast getting larger than left. TC score 6%. COMPARISON: Mammography: 05/23/2021, 02/29/2020, 02/23/2019, 01/12/2018 TECHNIQUE: Digital breast tomosynthesis is performed in both the craniocaudal and mediolateral oblique views along with computer-aided detection (CAD). Synthesized 2D images are generated from the tomosynthesis. FINDINGS: There are scattered areas of fibroglandular density (ACR BI-RADS breast composition Category b). Parenchymal pattern is similar to prior studies. There is mild asymmetry of the breasts, right slightly larger similar to prior exams. The bilateral breasts both appear slightly larger which may be related to systemic weight gain. Clinically correlate. The breast parenchymal pattern is similar to prior exams and there is no developing density or interval mass or architectural abnormality. No abnormal breast calcifications. Right axilla shows a high superficial node approximately 21 cm from nipple which is 1.7 cm in diameter and contains some benign-appearing chronic coarse calcifications. Fatty hilus is not clearly visualized. Node appears increased in size since 2018, prior measurement around 1.0 cm. Patient will be recalled for additional imaging. MM/MM tomosynthesis screening BI IMPRESSION: -No mammographic evidence of malignancy. -High right axillary node slightly larger and without visible fatty hilus, possibly reactive. ASSESSMENT: BI-RADS 0: Incomplete - Need Additional Imaging Evaluation RECOMMENDATION: Targeted ultrasound right breast/axilla. This patient's information was entered into a reminder system with a target due date for their next mammogram.
== END 2022-11-16 12:30 | disposition home or self-care (01) ==
LOC: HO.MAMMO 12:29
PROVIDERS: PCP Internal Medicine; Visit Provider Internal Medicine
DX: Z12.31 Encounter for screening mammogram for malignant neoplasm of breast (principal)
CPT/HCPCS: 77063; 77067

== ENCOUNTER 2022-11-19 13:26 | Outpatient (REF) | payer OTHER, SELFPAY ==
--- NOTE | ~2022-11-19 | US_ITS ---
EXAMINATION: US DIAGNOSTIC ULTRASOUND BREAST, RIGHT CLINICAL INFORMATION: Recall from screening for upper right axillary superficial nodule without fatty hilus slightly increased since 2018. COMPARISON: Mammography 11/16/2022, 05/23/2021, 02/29/2020, 02/23/2019, 01/12/2018 TECHNIQUE: Ultrasound of the upper outer right breast and right axillary is performed using grayscale imaging and color Doppler without and with harmonics. FINDINGS: The nodule high right axilla corresponds to an intradermal lesion measuring approximately 1.6 x 1.2 x 1.5 cm with mixed echogenicity. Margins are smooth. There is some focal hyperechogenicity within the nodule corresponding to benign-appearing coarse calcification on mammography. Color Doppler shows no internal color flow or surrounding hyperemia. There is no skin thickening. No edema tracking in soft tissue planes. There is a visible dermal nodule at site of ultrasound finding on clinical inspection. The finding is chronic, also noted on prior mammography 2018. Current mammogram measurements are 1.7 cm compared with prior mammographic measurement 2018 of 1.0 cm. Additional imaging upper outer right breast and axilla shows no lymphadenopathy. There is no cystic or solid mass or architectural abnormality. Results are discussed with the patient at time of visit. US/US breast RT limited IMPRESSION: -Superficial nodule right upper axilla corresponds to a chronic intradermal lesion, likely chronic sebaceous cyst. No surrounding hyperemia on color Doppler. -No lymphadenopathy. ASSESSMENT: BI-RADS 2: Benign RECOMMENDATION: 1. Patient may be managed based on the clinical impression as needed. If clinically indicated, surgical consult may be considered for excision. 2. Otherwise, routine annual screening mammography. This patient's information was entered into a reminder system with a target due date for their next mammogram.
== END 2022-11-19 13:27 | disposition home or self-care (01) ==
LOC: HO.MAMMO 13:26
PROVIDERS: Visit Provider Internal Medicine
DX: N63.31 Unspecified lump in axillary tail of the right breast (principal)
CPT/HCPCS: 76642

== ENCOUNTER → 2022-12-02 14:53 | Outpatient (BNVA) | payer OTHER, SELFPAY | PROVIDERS: PCP Internal Medicine; Visit Provider Nurse Practitioner Family ==

== ENCOUNTER 2022-12-14 10:10 | Outpatient (AMB) | payer OTHER, SELFPAY ==
--- NOTE | 2022-12-14 10:13 | AM.OFFWIN_ITS ---
Intake Vital Signs 12/14/22 10:15 Height 5 ft 1 in BP 130/60 Blood Pressure Location Rt brachial Position Sitting Pulse 73 Pulse Source Pulse Oximeter Temp 97.4 F Temp Source Temporal Artery Scan Pulse Oximetry (%) 95 Oxygen Delivery Method Room Air Intake Visit Reasons: EP ?UTI Intake Note: Pt is here c/o frequent urination. Pt states no pain or burning sensation. Patient Tobacco Use Status: Former Tobacco user Quit Date: over 20 years ago Allergies KARIN Inhibitors [KARIN INHIBITORS] Allergy (Severe, Verified 12/14/22 10:15) LIP SWELLING amoxicillin [AMOXICILLIN] Allergy (Severe, Verified 12/14/22 10:15) THROAT ITCHING, throat irritation Iodinated Contrast Media [IODINATED CONTRAST MEDIA - IV DYE] Allergy (Severe, Verified 12/14/22 10:15) HIVES/VOMITING benazepril Allergy (Intermediate, Verified 12/14/22 10:15) angioedema celecoxib [Celebrex] Allergy (Intermediate, Verified 12/14/22 10:15) hives atorvastatin Adverse Reaction (Severe, Verified 12/14/22 10:15) severe GI side effects all nsaids (leave per Gisela) Allergy (Intermediate, Uncoded 12/14/22 10:15) renal iodine Allergy (Intermediate, Uncoded 12/14/22 10:15) vomiting Do you need a note to return to daycare/school/sports/work: No HPI HPI Comments History of Present Illness Details 62-year-old female who presents with pain with urination increased frequency in cloudiness x1 day. Denies fever back pain PFSH Medical History Adrenal mass Annual physical exam Crohn's disease DM type 2 (diabetes mellitus, type 2) Goiter History of COVID-19 History of heart attack HTN (hypertension) Hyperlipidemia Multiple sclerosis NSTEMI (non-ST elevated myocardial infarction) Weakness Surgical History H/O colonoscopy History of esophagogastroduodenoscopy (EGD) Family History Mother Lung cancer Diabetes Heart disease Sister Diabetes HTN (hypertension) Sister Family history of thyroid problem HTN (hypertension) Social History Housing: Condominium Patient Tobacco Use Status: Former Tobacco user Quit Date: over 20 years ago Tobacco use type: Cigarette e-Cigarette/Vaping Use: Never Used Current occupational status: employed 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 [employer] Cognitive needs: No Hearing needs: No Vision needs: Yes Review of Systems Const All systems reviewed & are unremarkable except as noted in HPI and below Denies fever(s), Denies headache(s) and Denies weakness Eyes Reports no additional complaints ENT Reports no additional complaints and Denies headache(s) Card Reports no additional complaints, Denies chest pain, Denies leg edema and Denies dyspnea Resp Denies cough and Denies dyspnea GI Denies abdominal pain, Denies nausea and Denies vomiting Reports dysuria and Reports urinary urgency Musc Reports no additional complaints Neuro Denies headache(s) and Denies weakness Psych Reports no additional complaints Endo Reports no additional complaints Physical Exam Vital Signs: Last Vital Signs Temp 97.4 F 12/14/22 10:15 Pulse 73 12/14/22 10:15 BP 130/60 12/14/22 10:15 Pulse Ox 95 12/14/22 10:15 Oxygen Delivery Method Room Air 12/14/22 10:15 Const General: cooperative, no acute distress and alert Orientation/consciousness: patient oriented x3 Limitations: no limitations HEENT Head: Yes normal to inspection Ears: hearing grossly normal bilaterally and external ears normal General nose exam: Normal external nose present Eyes General: appearance normal, both eyes and all related structures Neck Neck: Yes normal visual inspection Chest Chest palpation & inspection: normal inspection of the chest Resp Effort & Inspection: normal respiratory effort, able to speak in complete sentences and no audible wheezes Auscultation: clear to auscultation bilaterally Cardio Rate: regular rate Rhythm: regular rhythm GI Inspection: Yes normal to inspection Palpation (GI): Soft to palpation and nontender General: Yes no CVA tenderness Back/Spine/Pelvis Back: no CVA tenderness Skin General skin exam: no rashes or lesions noted Neuro General: patient oriented x3 Psych Appearance: grossly normal Mental Status: mental status grossly normal Speech and movement: Normal speech and movement present Affect: normal affect Attitude: cooperative Thought process: Normal thought process present Thought content: Normal thought content present Results AMB Urinalysis, Automated UA Leukoctes 70 Margy/uL Last Edit by Jazmyn Sanchez CMA on 12/14/22 10:26 UA Nitrite Positive Last Edit by Jazmyn Sanchez, ACCOUNTING ASSISTANT on 12/14/22 10:26 UA Urobilinogen 0.2 mg/dL Last Edit by Jazmyn Sanchez, ENEDELIA on 12/14/22 10:26 UA Protein 0 mg/dL Last Edit by Jazmyn Sanchez, ACCOUNTING ASSISTANT on 12/14/22 10:26 UA pH 6.0 Last Edit by Jazmyn Sanchez, ACCOUNTING ASSISTANT on 12/14/22 10:26 UA Blood 10 Rik/uL Last Edit by Jazmyn Sanchez, ACCOUNTING ASSISTANT on 12/14/22 10:26 UA Specific [place] 1.015 Last Edit by Jazmyn Sanchez, ACCOUNTING ASSISTANT on 12/14/22 10:2 6 UA Ketone Negative Last Edit by Jazmyn Sanchez, ENEDELIA on 12/14/22 10:26 UA Bilirubin 0 mg/dL Last Edit by Jazmyn Sanchez, ENEDELIA on 12/14/22 10:26 UA Glucose 1000 mg/dL Last Edit by Jazmyn Sanchez, ENEDELIA on 12/14/22 10:26 Results Reviewed Results Reviewed: Laboratory Last Values Urine pH (Auto) 6.0 12/14/22 10:25 Specific [place] (Auto) 1.015 12/14/22 10:25 Urine Protein (Auto) 0 mg/dL 12/14/22 10:25 Glucose (UA)(Auto) 1000 mg/dL 12/14/22 10:25 Urine Ketones (Auto) Negative 12/14/22 10:25 Urine Blood (Auto) 10 Rik/uL 12/14/22 10:25 Urine Nitrite (Auto) Positive 12/14/22 10:25 Urine Bilirubin (Auto) 0 mg/dL 12/14/22 10:25 Urine Urobilinogen (Auto) 0.2 mg/dL 12/14/22 10:25 Leukocyte Esterase (Auto) 70 Margy/uL 12/14/22 10:25 Assessment & Plan Assessment & Plan (1) UTI (urinary tract infection): Code(s): N39.0 - Urinary tract infection, site not specified Plan 62-year-old female who presents with pain with urination increased frequency in cloudiness x1 day. VSS. On exam patient presents alert and oriented no acute distress no abdominal tenderness no CVA tenderness exam is otherwise unremarkable note above. Urinalysis performed consistent with UTI will prescribe Keflex this patient has tolerated before. Discharge instructions, follow up and treatment are discussed with patient in my usual fashion. Alternatives in treatment are also discussed. The patient will return for worsening symptoms or as needed. Advised that any labs/imaging ordered will be followed up on and contact made if further treatment needed. Counseled that patient's condition may require further evaluation and/or treatment. Symptoms of concern for worsening disorder discussed in detail in my customary manner. Patient does verbalize understanding of the plan, there are no apparent barriers to communication. The patient is given the opportunity to ask questions and have them answered to his/her satisfaction Orders: Orders AMB Urinalysis Automated Today Z13.9 - Encounter for screening, unspecified Medications: New cephalexin 500 mg PO BID 5 days 10 caps 0RF Patient Instructions: You was seen and evaluated in the urgent care for UTI symptoms. Urinalysis was performed and was consistent with urinary tract infection. Prescribed an antibiotic please take as directed. Please return to the emergency department her urgent care if you experience any new or worsening symptoms such as fever, back pain, worsening urinary symptoms, any concerns of assignments above. Coding Level of Care Code Est Pt Level 3 (56230) Diagnoses UTI (urinary tract infection) N39.0
[2022-12-14 10:15] VITALS: BP 130/60; PULSE 73; TEMP 36.3; O2SAT 95
== END 2022-12-14 10:55 | disposition home or self-care (01) ==
PROVIDERS: PCP Internal Medicine; Visit Provider Physician Assistant
DX: N39.0 Urinary tract infection, site not specified (principal)
CPT/HCPCS: 81003; 99213

== ENCOUNTER 2023-05-11 09:15 | Outpatient (REF) | payer OTHER, SELFPAY ==
[2023-05-11 10:23] LABS: Alanine Aminotransferase 16 U/L (0-31); Albumin Level 4.2 g/dL (3.5-5.0); Alkaline Phosphatase 77 U/L (39-117); Anion Gap 11 (12-20); Aspartate Amino Transferase 17 U/L (5-31); Bilirubin Total 0.4 mg/dL (0.0-1.0); Blood Urea Nitrogen 15 mg/dL (9-16); Carbon Dioxide 25 mmol/L (22-29); Chloride 110 mmol/L (96-108); Estimated Glomerular Filt Rate > 60; Glucose Fasting 171 mg/dL (60-99); Potassium 3.8 mmol/L (3.3-5.1); Sodium 142 mmol/L (135-145); Total Protein 7.8 g/dL (6.5-8.0)
[2023-05-11 10:27] LABS: Creatinine Urine 49.66 mg/dL; Microalbum/Creatinine Ratio Ur 110.7 ug/mg cr (<30)
[2023-05-11 10:39] LABS: Estimated Average Glucose 148 mg/dL; Hemoglobin A1c % 6.8 % (<6.0)
== END 2023-05-11 09:16 | disposition home or self-care (01) ==
LOC: HO.LAB 09:15
PROVIDERS: PCP Internal Medicine; Visit Provider Internal Medicine
DX: E11.9 Type 2 diabetes mellitus without complications (principal); E78.5 Hyperlipidemia, unspecified; I10 Essential (primary) hypertension
CPT/HCPCS: 36415; 80053; 82043; 82570; 83036

== ENCOUNTER 2023-05-13 12:51 | Outpatient (AMB) | payer OTHER, SELFPAY ==
--- NOTE | 2023-05-13 12:54 | MHC.PC.OV ---
Vital Signs 05/13/23 12:57 Height 5 ft 1 in Weight 194 lb BMI 36.7 BP 134/70 Blood Pressure Location Lt brachial Position Sitting Pulse 53 Pulse Source Pulse Oximeter Pulse Oximetry (%) 97 Oxygen Delivery Method Room Air Intake Visit Reasons: 3 Month follow up resched ( meds ) Intake Note: Pt is here today for 3 months follow up visit on labs. Allergies KARIN Inhibitors [KARIN INHIBITORS] Allergy (Severe, Verified 05/13/23 13:02) LIP SWELLING amoxicillin [AMOXICILLIN] Allergy (Severe, Verified 05/13/23 13:02) THROAT ITCHING, throat irritation Iodinated Contrast Media [IODINATED CONTRAST MEDIA - IV DYE] Allergy (Severe, Verified 05/13/23 13:02) HIVES/VOMITING benazepril Allergy (Intermediate, Verified 05/13/23 13:02) angioedema celecoxib [Celebrex] Allergy (Intermediate, Verified 05/13/23 13:02) hives atorvastatin Adverse Reaction (Severe, Verified 05/13/23 13:02) severe GI side effects all nsaids (leave per Gisela) Allergy (Intermediate, Uncoded 05/13/23 13:02) renal iodine Allergy (Intermediate, Uncoded 05/13/23 13:02) vomiting Medication List - Last Reconciled 05/13/23 by Liz Dhaliwal MD aspirin 81 mg PO DAILY carvedilol 12.5 mg PO BID cholecalciferol (vitamin D3) 50 mcg PO DAILY clindamycin HCl 600 mg (2 x 300 mg) PO ONCE clopidogrel 75 mg PO DAILY empagliflozin (Jardiance) 25 mg PO DAILY felodipine ER 10 mg PO DAILY losartan 100 mg PO DAILY metformin ER 500 mg PO BID rosuvastatin 20 mg PO DAILY vitamin B complex (B Complex-Vitamin B12 tablet) 1 tab PO DAILY Tobacco use date assessed: 05/13/23 Dental Screening Dental Screen Date: 05/13/23 Did you have a dental visit in the last 12 months?: Yes Did you have a dental problem in the last 6 months where you did not have access to dental care?: No Was dental information given to patient?: Patient has dentist HPI 3 Month follow up resched ( meds ) HPI Details Patient presents for the follow-up of type 2 diabetes hypertension hyperlipidemia, stable on current medications. [facility] Medical History Adrenal mass Annual physical exam Crohn's disease DM type 2 (diabetes mellitus, type 2) Goiter History of COVID-19 History of heart attack HTN (hypertension) Hyperlipidemia Multiple sclerosis NSTEMI (non-ST elevated myocardial infarction) Weakness Surgical History H/O colonoscopy History of esophagogastroduodenoscopy (EGD) Family History Mother Lung cancer Diabetes Heart disease Sister Diabetes HTN (hypertension) Sister Family history of thyroid problem HTN (hypertension) Social History Housing: Condominium Patient Tobacco Use Status: Former Tobacco user Quit Date: over 20 years ago Tobacco use type: Cigarette e-Cigarette/Vaping Use: Never Used Current occupational status: employed 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 Michael Simpson, Suni Olson, Mikey Danielson and colleagues, with an educational serge from [employer]. Review of Systems Const All systems reviewed & are unremarkable except as noted in HPI and below Reports no additional complaints Eyes Reports no additional complaints ENT Reports no additional complaints Card Reports no additional complaints Resp Reports no additional complaints Physical exam (Primary Care) Vital Signs: Last Vital Signs Pulse 53 05/13/23 12:57 BP 134/70 05/13/23 12:57 Pulse Ox 97 05/13/23 12:57 Oxygen Delivery Method Room Air 05/13/23 12:57 BMI result Body Mass Index 36.7 Tobacco/Smoking Status: Tobacco use Status Tobacco use date assessed 05/13/23 05/13/23 13:04 Patient Tobacco Use Status Former Tobacco user 05/13/23 12:55 Tobacco use type Cigarette 05/13/23 12:55 e-Cigarette/Vaping Use Never Used 05/13/23 12:55 Thrive Assessment: Date of Thrive Assessment Date Thrive assessed 11/03/22 05/13/23 12:55 Const General: no acute distress HENMT Ears: hearing grossly normal bilaterally Throat: Yes posterior oropharynx normal Neck Neck: Yes supple Resp Effort & Inspection: normal respiratory effort Auscultation: clear to auscultation bilaterally Cardio Rhythm: regular rhythm Heart sounds: S1 normal heart sound present and S2 normal heart sound present GI Inspection: Yes normal to inspection Extrem Other: Diabetic foot exam: skin is intact, monofilament sensation intact bilaterally Assessment and Plan Assessment & Plan (1) HTN (hypertension): Code(s): I10 - Essential (primary) hypertension Plan: Continue current medications (2) Hyperlipidemia: Code(s): E78.5 - Hyperlipidemia, unspecified Plan: Continue statin (3) DM type 2 (diabetes mellitus, type 2): Comment: microalbuminuria, f/u Dr. Amos q 6 months, last A1C 7.1 01/25, A1c 6.8 05/28 Code(s): E11.9 - Type 2 diabetes mellitus without complications Plan: A1c is down to 6.8, ADA diet regular physical activity weight loss discussed with the patient continue current medications. She will follow-up with [facility] months and will return in 6 months Orders: Orders Hemoglobin A1c 6 Months E11.9 - Type 2 diabetes mellitus without complications, E78.5 - Hyperlipidemia, unspecified, I10 - Essential (primary) hypertension Calcium, Ionized 6 Months E11.9 - Type 2 diabetes mellitus without complications, E78.5 - Hyperlipidemia, unspecified, I10 - Essential (primary) hypertension Comprehensive [place]. Panel Fast 6 Months E11.9 - Type 2 diabetes mellitus without complications, E78.5 - Hyperlipidemia, unspecified, I10 - Essential (primary) hypertension Complete Blood Count Auto Diff 6 Months E11.9 - Type 2 diabetes mellitus without complications, E78.5 - Hyperlipidemia, unspecified, I10 - Essential (primary) hypertension Lipid Panel 6 Months E11.9 - Type 2 diabetes mellitus without complications, E78.5 - Hyperlipidemia, unspecified, I10 - Essential (primary) hypertension Microalbumin, Random (w Creat) 6 Months E11.9 - Type 2 diabetes mellitus without complications, E78.5 - Hyperlipidemia, unspecified, I10 - Essential (primary) hypertension Coding Level of Care Code Est Pt Level 4 (72360) Diagnoses HTN (hypertension) I10 Hyperlipidemia E78.5 DM type 2 (diabetes mellitus, type 2) E11.9
[2023-05-13 12:57] VITALS: BP 134/70; PULSE 53; O2SAT 97; BMI 36.7
== END 2023-05-13 13:55 | disposition home or self-care (01) ==
PROVIDERS: PCP Internal Medicine; Visit Provider Internal Medicine
DX: I10 Essential (primary) hypertension (principal); E78.5 Hyperlipidemia, unspecified; E11.9 Type 2 diabetes mellitus without complications
CPT/HCPCS: 99214

== ENCOUNTER 2023-11-18 09:58 | Outpatient (REF) | payer OTHER, SELFPAY ==
--- NOTE | ~2023-11-18 | MM_ITS ---
EXAMINATION: BONE DENSITOMETRY CLINICAL INDICATION: Postmenopausal. Hyperparathyroidism. COMPARISON: Baseline BD dated 06/30/2018. TECHNIQUE: Using a [employer] DXA System (software version: 13.1) manufactured by [employer], dual-energy x-ray absorptiometry was performed of the lumbar spine, left hip, and left forearm radius 33%. The images are of good technical quality. Summary results are attached. FINDINGS: LEFT FEMUR, NECK: Current: BMD 0.937 g/cm2, Z-score -0.8, T-score -0.7, normal. Baseline: BMD 0.994 g/cm2. LEFT FEMUR, TOTAL: Current: BMD 0.985 g/cm2, Z-score -0.6, T-score -0.2, normal, 10.7% decrease from baseline (<5% change is not significant). Baseline: BMD 1.103 g/cm2. AP SPINE L1-L4: Current: BMD 1.272 g/cm2, Z-score 0.7, T-score 0.8, normal, 5.5% decrease from baseline (<5% change is not significant). Baseline: BMD 1.346 g/cm2. LEFT FOREARM RADIUS 33%: BMD 0.815 g/cm2, Z-score -0.4, T-score -0.7, normal. IDENTIFIED RISK FACTORS: Menopause, hysterectomy, low calcium intake, hyperparathyroidism, history of fracture (adult), secondary osteoporosis (intestinal or bowel disease). HISTORY OF FRACTURE: Other. MEDICATIONS: Vitamin D. MM/XR DEXA appendicular skeleton IMPRESSION: 1. DIAGNOSIS: Normal bone density based on the lowest T-score value of -0.7 in the femur neck and forearm radius 33% applying World Health Organization criteria. 2. 10-YEAR FRACTURE RISK PREDICTION, FRAX: According to the guidelines, FRAX calculation should only be performed on patients in the osteopenia bone density category. Therefore, FRAX was not performed on this patient. 3. Treatment Recommendations: NOF guidelines recommend consideration for treatment in postmenopausal women and men age 50 and older presenting with the following: -A hip or vertebral (clinical or morphometric) fracture. -T-score less than or equal to -2.5 at the femoral neck or spine after appropriate evaluation to exclude secondary causes. -Low bone mass at the hip or spine and a 10-year fracture probability by FRAX of greater than or equal to 3% for hip fracture or greater than or equal to 20% for major osteoporotic fracture based on the [place] adapted WHO algorithm. 4. Other Recommendations: All treatment decisions require clinical judgment and consideration of individual patient factors, including patient preferences, comorbidities, previous drug use, risk factors not captured in the FRAX model (e.g. frailty, falls, vitamin D deficiency, increased bone turnover, interval significant decline in bone density) and possible under or overestimation of fracture risk by FRAX. FUTURE SCAN RECOMMENDATION: People with diagnosed cases of osteoporosis or at high risk for fracture should have regular bone mineral density tests. For patients eligible for Medicare, routine testing is allowed once every 2 years. The testing frequency can be increased to one year for patients who have rapidly progressing disease, those who are receiving or discontinuing medical therapy to restore bone mass, or have additional risk factors.
== END 2023-11-18 09:59 | disposition home or self-care (01) ==
LOC: HO.MAMMO 09:58
PROVIDERS: PCP Internal Medicine; Visit Provider Internal Medicine Endocrinology, Diabetes & Metabolism
DX: E23.1 Drug-induced hypopituitarism (principal); Z12.31 Encounter for screening mammogram for malignant neoplasm of breast; Z78.0 Asymptomatic menopausal state; Z90.710 Acquired absence of both cervix and uterus
CPT/HCPCS: 77063; 77067; 77081

== ENCOUNTER → 2023-11-18 11:00 | Outpatient (BNV) | payer OTHER, SELFPAY | PROVIDERS: PCP Internal Medicine; Visit Provider Radiology Diagnostic Radiology | DX: Z12.31 Encounter for screening mammogram for malignant neoplasm of breast (principal) | CPT/HCPCS: 77063; 77067 ==

== ENCOUNTER 2023-12-09 14:48 | Outpatient (AMB) | payer OTHER, SELFPAY ==
[2023-12-09 14:50] VITALS: BP 130/80; PULSE 96; TEMP 36.8; O2SAT 97; BMI 35.9
--- NOTE | 2023-12-09 14:50 | AM.OFFWIN_ITS ---
Intake Vital Signs 12/09/23 14:50 Height 5 ft 1 in Weight 190 lb BMI 35.9 BP 130/80 Blood Pressure Location Rt brachial Position Sitting Pulse 96 Pulse Source Pulse Oximeter Temp 98.3 F Temp Source Oral Pulse Oximetry (%) 97 Intake Visit Reasons: EP ?cold/Cough Intake Note: pt is here for cough and cold Patient Tobacco Use Status: Former Tobacco user Allergies KARIN Inhibitors [KARIN INHIBITORS] Allergy (Severe, Verified 12/09/23 14:50) LIP SWELLING amoxicillin [AMOXICILLIN] Allergy (Severe, Verified 12/09/23 14:50) THROAT ITCHING, throat irritation Iodinated Contrast Media [IODINATED CONTRAST MEDIA - IV DYE] Allergy (Severe, Verified 12/09/23 14:50) HIVES/VOMITING benazepril Allergy (Intermediate, Verified 12/09/23 14:50) angioedema celecoxib [Celebrex] Allergy (Intermediate, Verified 12/09/23 14:50) hives atorvastatin Adverse Reaction (Severe, Verified 12/09/23 14:50) severe GI side effects all nsaids (leave per Gisela) Allergy (Intermediate, Uncoded 05/13/23 13:02) renal iodine Allergy (Intermediate, Uncoded 05/13/23 13:02) vomiting Do you need a note to return to daycare/school/sports/work: No PFSH Medical History Adrenal mass Annual physical exam Crohn's disease DM type 2 (diabetes mellitus, type 2) Goiter History of COVID-19 History of heart attack HTN (hypertension) Hyperlipidemia Multiple sclerosis NSTEMI (non-ST elevated myocardial infarction) Weakness Surgical History H/O colonoscopy History of esophagogastroduodenoscopy (EGD) Family History Mother Lung cancer Diabetes Heart disease Sister Diabetes HTN (hypertension) Sister Family history of thyroid problem HTN (hypertension) Social History Housing: Condominium Patient Tobacco Use Status: Former Tobacco user Tobacco use type: Cigarette e-Cigarette/Vaping Use: Never Used Current occupational status: employed 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 [employer] Cognitive needs: No Hearing needs: No Vision needs: Yes Physical Exam Vital Signs: Last Vital Signs Temp 98.3 F 12/09/23 14:50 Pulse 96 12/09/23 14:50 BP 130/80 12/09/23 14:50 Pulse Ox 97 12/09/23 14:50 BMI result Body Mass Index 35.9 Const General: comfortable and no acute distress Nutritional Appearance: overweight Orientation/consciousness: patient oriented x3 HEENT Head: Yes normocephalic Ears: external ears normal and TM abnormal with fluid behind the TM bilateral General nose exam: Abnormal mucous membranes and turbinates present boggy and erythematous Face and sinus: Yes sinuses nontender Mouth: moist mucous membranes Throat: Yes posterior oropharynx normal Resp Effort & Inspection: normal respiratory effort, able to speak in complete sentences and Actively coughing Auscultation: clear to auscultation bilaterally, no crackles, no rales, no rhonchi and no wheezes Cardio Rate: regular rate Rhythm: regular rhythm Neuro General: patient oriented x3, gait normal and moves all extremities Psych Speech and movement: Normal speech and movement present Assessment & Plan Assessment & Plan (1) Cough in adult: Code(s): R05.9 - Cough, unspecified Plan: OTC coldcough remedies Warm fluids with honey (2) Upper respiratory infection: Code(s): J06.9 - Acute upper respiratory infection, unspecified Qualifiers: URI type: unspecified viral URI Qualified Code(s): J06.9 - Acute upper respiratory infection, unspecified Plan: Rest and hydrate well Medications: New benzonatate 100 mg PO TID 90 caps 0RF R05.9 - Cough, unspecified fluticasone propionate 50 mcg/actuation (Flonase Allergy Relief) administer into each nostril 1 spray intranasal DAILY 16 grams 0RF J06.9 - Acute upper respiratory infection, unspecified, R05.9 - Cough, unspecified cetirizine (Zyrtec) 10 mg PO DAILY PRN 90 tabs 0RF allergy symptoms J06.9 - Acute upper respiratory infection, unspecified Coding Level of Care Code Est Pt Level 3 (80836) Diagnoses Cough in adult R05.9 Viral upper respiratory tract infection J06.9 URI type: unspecified viral URI Time Spent (min) 15
== END 2023-12-09 15:27 | disposition home or self-care (01) ==
PROVIDERS: PCP Internal Medicine; Visit Provider Nurse Practitioner Family
DX: R05.9 Cough, unspecified (principal); J06.9 Acute upper respiratory infection, unspecified
CPT/HCPCS: 99213

== ENCOUNTER 2023-12-27 10:20 | Outpatient (AMB) | payer OTHER, SELFPAY ==
[2023-12-27 10:26] VITALS: BP 132/70; PULSE 95; O2SAT 98; BMI 35.5
--- NOTE | 2023-12-27 10:26 | MHC.OFFWIV ---
Intake Vital Signs 12/27/23 10:26 Height 5 ft 1 in Weight 188 lb 2 oz BMI 35.5 BP 132/70 Blood Pressure Location Lt brachial Position Sitting Pulse 95 Pulse Source Pulse Oximeter Pulse Oximetry (%) 98 Oxygen Delivery Method Room Air Intake Visit Reasons: EP UTI Patient Tobacco Use Status: Former Tobacco user Allergies KARIN Inhibitors [KARIN INHIBITORS] Allergy (Severe, Verified 12/27/23 10:36) LIP SWELLING amoxicillin [AMOXICILLIN] Allergy (Severe, Verified 12/27/23 10:36) THROAT ITCHING, throat irritation Iodinated Contrast Media [IODINATED CONTRAST MEDIA - IV DYE] Allergy (Severe, Verified 12/27/23 10:36) HIVES/VOMITING benazepril Allergy (Intermediate, Verified 12/27/23 10:36) angioedema celecoxib [Celebrex] Allergy (Intermediate, Verified 12/27/23 10:36) hives atorvastatin Adverse Reaction (Severe, Verified 12/27/23 10:36) severe GI side effects all nsaids (leave per Gisela) Allergy (Intermediate, Uncoded 05/13/23 13:02) renal iodine Allergy (Intermediate, Uncoded 05/13/23 13:02) vomiting Medication List - Last Reconciled 12/27/23 by Rolan Sosa MD aspirin 81 mg PO DAILY benzonatate 100 mg PO TID carvedilol 12.5 mg PO BID cetirizine (Zyrtec) 10 mg PO DAILY PRN cholecalciferol (vitamin D3) 50 mcg PO DAILY clopidogrel 75 mg PO DAILY empagliflozin (Jardiance) 25 mg PO DAILY felodipine ER 10 mg PO DAILY fluticasone propionate 50 mcg/actuation (Flonase Allergy Relief) 1 spray intranasal DAILY losartan 100 mg PO DAILY metformin ER 500 mg PO BID rosuvastatin 20 mg PO DAILY vitamin B complex (B Complex-Vitamin B12 tablet) 1 tab PO DAILY Do you need a note to return to daycare/school/sports/work: No HPI EP UTI HPI Details 63-year-old female came in today to be evaluated for possible bladder infection For the past 2 days patient is having urgency and burning with micturition There is no back pain, there is slight suprapubic pressure No fever no chills no nausea no vomiting UA shows positive leuk esterase and blood Her glucose is 3+ in urine We talked about better control of diabetes I would recommend that she start checking her sugar and keeping a log Talk to PCP for the Patient was requesting whole week off from work, I offered her to give today and tomorrow off. Patient says that she is going to work today I do not think she need time off from work, once she start the antibiotic she will feel better [facility] Medical History History of COVID-19 History of heart attack Crohn's disease Goiter Multiple sclerosis Annual physical exam Adrenal mass HTN (hypertension) Hyperlipidemia NSTEMI (non-ST elevated myocardial infarction) DM type 2 (diabetes mellitus, type 2) Weakness Surgical History H/O colonoscopy History of esophagogastroduodenoscopy (EGD) Family History Mother Lung cancer Diabetes Heart disease Sister Diabetes HTN (hypertension) Sister Family history of thyroid problem HTN (hypertension) Social History Housing: Condominium Patient Tobacco Use Status: Former Tobacco user Tobacco use type: Cigarette e-Cigarette/Vaping Use: Never Used Current occupational status: employed 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[employer] Cognitive needs: No Hearing needs: No Vision needs: Yes Review of Systems Const All systems reviewed & are unremarkable except as noted in HPI and below Physical Exam Vital Signs: Last Vital Signs Pulse 95 12/27/23 10:26 BP 132/70 12/27/23 10:26 Pulse Ox 98 12/27/23 10:26 Oxygen Delivery Method Room Air 12/27/23 10:26 BMI result Body Mass Index 35.5 Const General: no acute distress Orientation/consciousness: patient oriented x3 Eyes General: appearance normal, both eyes and all related structures Resp Effort & Inspection: normal respiratory effort and able to speak in complete sentences GI Other: Mild suprapubic discomfort General: Yes no CVA tenderness Back/Spine/Pelvis Back: no CVA tenderness Neuro General: patient oriented x3 Psych Mental Status: mental status grossly normal Results AMB Urinalysis, Automated UA Leukoctes 70 Margy/uL Last Edit by ARJUN Moran on 12/27/23 10:35 UA Nitrite Positive Last Edit by Gustabo Nieves [facility] on 12/27/23 10:35 UA Urobilinogen 0.2 mg/dL Last Edit by Gustabo Nieves [facility] on 12/27/23 10:35 UA Protein 30 mg/dL Last Edit by LauraNicholas Nieves [facility] on 12/27/23 10:35 UA pH 6.0 Last Edit by LauraNicholas Nieves, [facility] on 12/27/23 10:35 UA Blood 80 Rik/uL [facility] on 12/27/23 10:35 UA Specific [place] 1.010 Last Edit by Gustabo Nieves [facility] on 12/27/23 10:35 UA Ketone Negative Last Edit by Gustabo Nieves [facility] on 12/27/23 10:35 UA Bilirubin 0 mg/dL Last Edit by LauraSharla Nieves [facility] on 12/27/23 10:35 UA Glucose 1000 mg/dL Last Edit by LauraNicholas Nieves [facility] on 12/27/23 10:35 Results Reviewed Results Reviewed: Laboratory Last Values Urine pH (Auto) 6.0 12/27/23 10:33 Specific Goodrich (Auto) 1.010 12/27/23 10:33 Urine Protein (Auto) 30 mg/dL 12/27/23 10:33 Glucose (UA)(Auto) 1000 mg/dL 12/27/23 10:33 Urine Ketones (Auto) Negative 12/27/23 10:33 Urine Blood (Auto) 80 Rik/uL 12/27/23 10:33 Urine Nitrite (Auto) Positive 12/27/23 10:33 Urine Bilirubin (Auto) 0 mg/dL 12/27/23 10:33 Urine Urobilinogen (Auto) 0.2 mg/dL 12/27/23 10:33 Leukocyte Esterase (Auto) 70 Margy/uL 12/27/23 10:33 Assessment & Plan Assessment & Plan (1) Acute cystitis: Code(s): N30.00 - Acute cystitis without hematuria Qualifiers: Hematuria presence: with hematuria Qualified Code(s): N30.01 - Acute cystitis with hematuria Plan 63-year-old female came in today to be evaluated for possible bladder infection For the past 2 days patient is having urgency and burning with micturition There is no back pain, there is slight suprapubic pressure No fever no chills no nausea no vomiting UA shows positive leuk esterase and blood Her glucose is 3+ in urine We talked about better control of diabetes I would recommend that she start checking her sugar and keeping a log Talk to PCP for the Patient was requesting whole week off from work, I offered her to give today and tomorrow off. Patient says that she is going to work today I do not think she need time off from work, once she start the antibiotic she will feel better Orders: Orders AMB Urinalysis Automated Today Z13.9 - Encounter for screening, unspecified Urine Culture Today N30.00 - Acute cystitis without hematuria Medications: New nitrofurantoin monohyd/m-cryst 100 mg (Macrobid) must administer with a meal/food 100 mg PO Q12H 10 caps 0RF 5 days Coding Level of Care Code Est Pt Level 3 (22630) Diagnoses Acute cystitis with hematuria N30.01 Hematuria presence: with hematuria
== END 2023-12-27 10:56 | disposition home or self-care (01) ==
PROVIDERS: PCP Internal Medicine; Visit Provider Internal Medicine
DX: N30.01 Acute cystitis with hematuria (principal); Z13.9 Encounter for screening, unspecified
CPT/HCPCS: 81003; 99213

== ENCOUNTER 2023-12-27 13:07 | Outpatient (REF) | payer OTHER, SELFPAY | END 2023-12-27 13:08 | disposition home or self-care (01) | LOC: HO.LNP 13:07 | PROVIDERS: Visit Provider Internal Medicine | DX: N30.00 Acute cystitis without hematuria (principal) | CPT/HCPCS: 87086; 87088; 87186 ==

== ENCOUNTER 2024-02-07 11:31 | Outpatient (AMB) | payer OTHER, SELFPAY ==
--- NOTE | 2024-02-07 12:37 | AM.OFFWIN_ITS ---
Intake Vital Signs 02/07/24 12:40 Height 5 ft 1 in Weight 185 lb BMI 35.0 BP 130/80 Blood Pressure Location Rt brachial Position Sitting Pulse 64 Pulse Source Pulse Oximeter Temp 98.4 F Temp Source Oral Pulse Oximetry (%) 98 Oxygen Delivery Method Room Air Intake Visit Reasons: EP Cough, Wheezing, congestion Intake Note: Patient here for cough,congestion and wheezing which has been present for about 3 days. Patient Tobacco Use Status: Former Tobacco user Allergies KARIN Inhibitors [KARIN INHIBITORS] Allergy (Severe, Verified 12/27/23 10:36) LIP SWELLING amoxicillin [AMOXICILLIN] Allergy (Severe, Verified 12/27/23 10:36) THROAT ITCHING, throat irritation Iodinated Contrast Media [IODINATED CONTRAST MEDIA - IV DYE] Allergy (Severe, Verified 12/27/23 10:36) HIVES/VOMITING benazepril Allergy (Intermediate, Verified 12/27/23 10:36) angioedema celecoxib [Celebrex] Allergy (Intermediate, Verified 12/27/23 10:36) hives atorvastatin Adverse Reaction (Severe, Verified 12/27/23 10:36) severe GI side effects all nsaids (leave per Gisela) Allergy (Intermediate, Uncoded 05/13/23 13:02) renal iodine Allergy (Intermediate, Uncoded 05/13/23 13:02) vomiting Do you need a note to return to daycare/school/sports/work: Yes HPI HPI Comments History of Present Illness Details Patient is a 63-year-old female complaining of cough congestion and wheezing for 3 days. She states she also had a subjective fever last night but does not have a thermometer to measure her temperature. She denies any nausea, vomiting, diarrhea, ear pain or sinus pain She denies a history of asthma or COPD. She denies any sick contacts. [facility] Medical History History of COVID-19 History of heart attack Crohn's disease Goiter Multiple sclerosis Annual physical exam Adrenal mass HTN (hypertension) Hyperlipidemia NSTEMI (non-ST elevated myocardial infarction) DM type 2 (diabetes mellitus, type 2) Weakness Surgical History H/O colonoscopy History of esophagogastroduodenoscopy (EGD) Family History Mother Lung cancer Diabetes Heart disease Sister Diabetes HTN (hypertension) Sister Family history of thyroid problem HTN (hypertension) Social History Housing: Condominium Patient Tobacco Use Status: Former Tobacco user Tobacco use type: Cigarette e-Cigarette/Vaping Use: Never Used Current occupational status: employed 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 Cognitive needs: No Hearing needs: No Vision needs: Yes Review of Systems Const All systems reviewed & are unremarkable except as noted in HPI and below Physical Exam Vital Signs: Last Vital Signs Temp 98.4 F 02/07/24 12:40 Pulse 64 02/07/24 12:40 BP 130/80 02/07/24 12:40 Pulse Ox 98 02/07/24 12:40 Oxygen Delivery Method Room Air 02/07/24 12:40 BMI result Body Mass Index 35.0 Const General: cooperative, healthy appearing, comfortable and no acute distress Orientation/consciousness: patient oriented x3 Limitations: no limitations HEENT Head: Yes normal to inspection Ears: hearing grossly normal bilaterally, external ears normal and TM's normal bilaterally General nose exam: Normal external nose present, Normal nares present and No nasal discharge present Face and sinus: Yes normal facial exam and Yes sinuses nontender Mouth: Normal oral and palatal mucosa present and moist mucous membranes Throat: Yes tonsils normal, Yes uvula midline and Yes posterior oropharynx abnormal (Erythema) Eyes General: appearance normal, both eyes and all related structures Neck Neck: Yes normal visual inspection Resp Effort & Inspection: normal respiratory effort, able to speak in complete sentences, Actively coughing, no respiratory distress, not tachypneic, no tripod positioning and no use of accessory muscles Auscultation: rhonchi (slight) left lower and right lower and wheezes expiratory wheezes (slight throughout) Cardio Rate: regular rate Rhythm: regular rhythm Heart sounds: normal S1 and S2 Skin General skin exam: no rashes or lesions noted Neuro General: patient oriented x3 Extrem General: Yes normal to inspection and Yes no clubbing, cyanosis or edema Assessment & Plan Assessment & Plan (1) Bronchitis: Code(s): J40 - Bronchitis, not specified as acute or chronic Plan: Recommending rest, staying hydrated and using over the counter medications to treat her symptoms. Vital signs are stable however lung sounds concerning for inflammation and/or pneumonia, we will get chest x-ray. Sent prednisone and albuterol inhaler to pharmacy, may add an antibiotic depending on the chest x- ray results. Plan See above Medications: New albuterol sulfate 90 mcg/actuation 2 puffs inhalation Q6H PRN 8.5 grams 0RF shortness of breath or wheezing or cough prednisone 20 mg PO DAILY 5 tabs 0RF Coding Level of Care Code Est Pt Level 4 (61062) Diagnoses Bronchitis J40
[2024-02-07 12:40] VITALS: BP 130/80; PULSE 64; TEMP 36.9; O2SAT 98; BMI 35.0
== END 2024-02-07 13:47 | disposition home or self-care (01) ==
PROVIDERS: PCP Internal Medicine; Visit Provider Physician Assistant
DX: J40 Bronchitis, not specified as acute or chronic (principal)
CPT/HCPCS: 99214

== ENCOUNTER 2024-02-07 13:26 | Outpatient (REF) | payer OTHER, SELFPAY ==
--- NOTE | ~2024-02-07 | XR_ITS ---
EXAMINATION: XR CHEST CLINICAL INFORMATION: Bronchitis nonspecified COMPARISON: None available. TECHNIQUE: 2 views of the chest were obtained. FINDINGS: There is slight prominence to the right hilar and suprahilar structures. This may be due to patient obliquity. I would recommend a well centered PA and lateral follow-up. The lungs are considered clear. There are no pleural effusions. Heart and pulmonary vessels are normal. XR/XR chest 2V IMPRESSION: No active disease. Slight prominence to the right hilar region possibly due to the ascending aorta and patient obliquity. Follow-up nonrotated images are advised. Electronically signed by: Tanner Rg MD 02/07/2024 02:44 PM EDT
[2024-02-07 18:37] LABS: Influenza A PCR NEGATIVE (Negative); Influenza B PCR NEGATIVE (Negative); Resp Syncy Virus RNA Qual PCR NEGATIVE (Negative); SARS COV2 PCR INHOUSE NEGATIVE (Negative)
== END 2024-02-07 13:27 | disposition home or self-care (01) ==
LOC: HO.HMGCX 13:26
PROVIDERS: Physician Assistant; PCP Internal Medicine; Visit Provider Nurse Practitioner Family
DX: J40 Bronchitis, not specified as acute or chronic (principal); J06.9 Acute upper respiratory infection, unspecified
CPT/HCPCS: 0241U; 71046

== ENCOUNTER 2024-02-07 13:30 | Outpatient (REF) | payer OTHER, SELFPAY | END 2024-02-07 13:31 | disposition home or self-care (01) | LOC: HO.LAB 13:30 | PROVIDERS: Visit Provider Physician Assistant | DX: Z13.89 Encounter for screening for other disorder (principal) ==

== ENCOUNTER 2024-05-01 08:48 | Outpatient (AMB) | payer OTHER, SELFPAY ==
--- NOTE | 2024-05-01 08:55 | AM.OFFWIN_ITS ---
Intake Vital Signs 05/01/24 09:05 Weight 185 lb BP 124/80 Blood Pressure Location Rt brachial Position Sitting Pulse 81 Pulse Source Pulse Oximeter Temp 98.1 F Temp Source Oral Pulse Oximetry (%) 96 Oxygen Delivery Method Room Air Intake Visit Reasons: EP ?UTI Intake Note: Patient here for lower back discomfort, frequent urination and foul odor that started last Tuesday. Patient Tobacco Use Status: Former Tobacco user Allergies KARIN Inhibitors [KARIN INHIBITORS] Allergy (Severe, Verified 05/01/24 09:04) LIP SWELLING amoxicillin [AMOXICILLIN] Allergy (Severe, Verified 05/01/24 09:04) THROAT ITCHING, throat irritation Iodinated Contrast Media [IODINATED CONTRAST MEDIA - IV DYE] Allergy (Severe, Verified 05/01/24 09:04) HIVES/VOMITING benazepril Allergy (Intermediate, Verified 05/01/24 09:04) angioedema celecoxib [Celebrex] Allergy (Intermediate, Verified 05/01/24 09:04) hives atorvastatin Adverse Reaction (Severe, Verified 05/01/24 09:04) severe GI side effects all nsaids (leave per Gisela) Allergy (Intermediate, Uncoded 05/01/24 09:04) renal iodine Allergy (Intermediate, Uncoded 05/01/24 09:04) vomiting Do you need a note to return to daycare/school/sports/work: No HPI HPI Comments History of Present Illness Details 63 y/o female patient who presents to [facility] with c/o Urinary symptoms since last Tuesday. She reports Urinary frequency and foul smell in urine. Pt has h/o uncontrolled T2DM. Urinalysis is positive for Glucose. [facility] Medical History History of COVID-19 History of heart attack Crohn's disease Goiter Multiple sclerosis Annual physical exam Adrenal mass HTN (hypertension) Hyperlipidemia NSTEMI (non-ST elevated myocardial infarction) DM type 2 (diabetes mellitus, type 2) Weakness Surgical History H/O colonoscopy History of esophagogastroduodenoscopy (EGD) Family History Mother Lung cancer Diabetes Heart disease Sister Diabetes HTN (hypertension) Sister Family history of thyroid problem HTN (hypertension) Social History Housing: Condominium Patient Tobacco Use Status: Former Tobacco user Tobacco use type: Cigarette e-Cigarette/Vaping Use: Never Used Current occupational status: employed 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[employer] Cognitive needs: No Hearing needs: No Vision needs: Yes Review of Systems Const All systems reviewed & are unremarkable except as noted in HPI and below Physical Exam Vital Signs: Last Vital Signs Temp 98.1 F 05/01/24 09:05 Pulse 81 05/01/24 09:05 BP 124/80 05/01/24 09:05 Pulse Ox 96 05/01/24 09:05 Oxygen Delivery Method Room Air 05/01/24 09:05 Const General: no acute distress Nutritional Appearance: obese Orientation/consciousness: patient oriented x3 Resp Effort & Inspection: normal respiratory effort Auscultation: clear to auscultation bilaterally Cardio Heart sounds: S1 normal heart sound present and S2 normal heart sound present General: Yes no CVA tenderness Back/Spine/Pelvis Back: no CVA tenderness Neuro General: patient oriented x3 Assessment & Plan Assessment & Plan (1) Urinary frequency: Code(s): R35.0 - Frequency of micturition Plan: Urinalysis negative for Leuco and Nitrite, but positive for Glucose. Advised to manage her Diabetes. Coding Level of Care Code Est Pt Level 3 (61516) Diagnoses Urinary frequency R35.0 Time Spent (min) 15
[2024-05-01 09:05] VITALS: BP 124/80; PULSE 81; TEMP 36.7; O2SAT 96
== END 2024-05-01 09:30 | disposition home or self-care (01) ==
PROVIDERS: PCP Internal Medicine; Visit Provider Nurse Practitioner Family
DX: Z13.9 Encounter for screening, unspecified (principal); R35.0 Frequency of micturition

== ENCOUNTER → 2024-05-01 08:48 | Outpatient (BNVA) | payer OTHER, SELFPAY | PROVIDERS: PCP Internal Medicine; Visit Provider Nurse Practitioner Family | DX: R35.0 Frequency of micturition (principal) | CPT/HCPCS: 81003 ==

== ENCOUNTER 2024-05-05 11:07 | Outpatient (AMB) | payer OTHER, SELFPAY ==
[2024-05-05 14:19] VITALS: BP 130/80; PULSE 61; TEMP 36.6; O2SAT 96; BMI 35.1
--- NOTE | 2024-05-05 14:19 | MHC.OFFWIV ---
Intake Vital Signs 05/05/24 14:19 Height 5 ft 1 in Weight 186 lb BMI 35.1 BP 130/80 Blood Pressure Location Rt brachial Position Sitting Pulse 61 Pulse Source Pulse Oximeter Temp 97.8 F Temp Source Oral Pulse Oximetry (%) 96 Oxygen Delivery Method Room Air Intake Visit Reasons: EP cough, phlegm Intake Note: Pt is here today c/o cough up phlegm Patient Tobacco Use Status: Former Tobacco user Allergies KARIN Inhibitors [KARIN INHIBITORS] Allergy (Severe, Verified 07/31/24 15:19) LIP SWELLING amoxicillin [AMOXICILLIN] Allergy (Severe, Verified 07/31/24 15:19) THROAT ITCHING, throat irritation Iodinated Contrast Media [IODINATED CONTRAST MEDIA - IV DYE] Allergy (Severe, Verified 07/31/24 15:19) HIVES/VOMITING benazepril Allergy (Intermediate, Verified 07/31/24 15:19) angioedema celecoxib [Celebrex] Allergy (Intermediate, Verified 07/31/24 15:19) hives atorvastatin Adverse Reaction (Severe, Verified 07/31/24 15:19) severe GI side effects all nsaids (leave per Gisela) Allergy (Intermediate, Uncoded 07/31/24 15:19) renal iodine Allergy (Intermediate, Uncoded 07/31/24 15:19) vomiting HPI EP cough, phlegm HPI Details Patient is a 63-year-old female with multiple comorbidities including but not limited to coronary artery disease status post STEMI and PCI with stent placement, hypertension, type 2 diabetes mellitus, and multiple sclerosis, who comes to the walk-in clinic complaining of a productive cough. She also has a history of long-term smoking, but quit in her 30s, and reports that she does get respiratory infections and bronchitis frequently. She has an albuterol inhaler at home. No known underlying COPD diagnosis however. She denies fever or chills, chest pain or shortness of breath, weakness or dizziness or vertigo severe headache, nausea vomiting or diarrhea, myalgias or malaise, or other significant associated symptoms. No COVID testing done yet. [facility] Medical History History of COVID-19 History of heart attack Crohn's disease Goiter Multiple sclerosis Annual physical exam Adrenal mass HTN (hypertension) Hyperlipidemia NSTEMI (non-ST elevated myocardial infarction) DM type 2 (diabetes mellitus, type 2) Weakness Surgical History H/O colonoscopy History of esophagogastroduodenoscopy (EGD) Family History Mother Lung cancer Diabetes Heart disease Sister Diabetes HTN (hypertension) Sister Family history of thyroid problem HTN (hypertension) Social History Housing: Condominium Patient Tobacco Use Status: Former Tobacco user Tobacco use type: Cigarette e-Cigarette/Vaping Use: Never Used Current occupational status: employed 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 [employer] Cognitive needs: No Hearing needs: No Vision needs: Yes Review of Systems Const All systems reviewed & are unremarkable except as noted in HPI and below Physical Exam Vital Signs: Last Vital Signs Temp 97.8 F 05/05/24 14:19 Pulse 61 05/05/24 14:19 BP 130/80 05/05/24 14:19 Pulse Ox 96 05/05/24 14:19 Oxygen Delivery Method Room Air 05/05/24 14:19 BMI result Body Mass Index 35.1 Const General: cooperative, healthy appearing, no acute distress, alert, awake, Physically active and well groomed; No anxious, diaphoretic, intoxicated appearing, poor hygiene or tired appearing Nutritional Appearance: average body habitus Orientation/consciousness: patient oriented x3 Limitations: no limitations HEENT Head: Yes normal to inspection, Yes normocephalic and Yes atraumatic Ears: hearing grossly normal bilaterally, external ears normal, TM's normal bilaterally and EAC's normal General nose exam: Normal external nose present, Normal nares present, Normal septum present and No nasal discharge present Face and sinus: Yes normal facial exam, Yes sinuses nontender and Yes face symmetric Mouth: Normal oral and palatal mucosa present, lip normal and tongue normal Throat: Yes abnormal tonsil (mildly erythematous bilaterally), No peritonsillar mass, No uvular edema and No cobblestoning Eyes General: appearance normal, both eyes and all related structures Neck Neck: Yes normal visual inspection, Yes no lymphadenopathy, Yes trachea midline, Yes supple and No anterior neck swelling Chest Chest palpation & inspection: normal palpation of entire chest wall Resp Effort & Inspection: normal respiratory effort, able to speak in complete sentences, normal respiratory pattern, no audible wheezes, Actively coughing Quality: productive, no grunting, not labored, no nasal flaring, no pursed lip breathing, no respiratory distress, no retractions, no segmental paradox chest wall movement, no stridor, not tachypneic, no tripod positioning, no use of accessory muscles, No prolonged expiratory phase and symmetric chest movement Auscultation: no crackles, no rales, no rhonchi, wheezes, lung sounds not diminished and No rub present Cardio Palpation: normal PMI Rate: regular rate Rhythm: regular rhythm Heart sounds: S1 normal heart sound present and S2 normal heart sound present Skin Other: Good color, warm and dry Neuro General: patient oriented x3 Psych Appearance: grossly normal Mental Status: mental status grossly normal Speech and movement: Normal speech and movement present Affect: normal affect Attitude: cooperative Thought process: Normal thought process present Insight: Good insight present (Psych) Judgement: Good judgement present (Psych) Assessment & Plan Assessment & Plan (1) Lower respiratory infection: Code(s): J22 - Unspecified acute lower respiratory infection Plan Patient is a 63-year-old female with multiple comorbidities including but not limited to coronary artery disease status post STEMI and PCI with stent placement, hypertension, type 2 diabetes mellitus, and multiple sclerosis, who comes to the walk-in clinic complaining of a productive cough. She also has a history of long-term smoking, but quit in her 30s, and reports that she does get respiratory infections and bronchitis frequently. She has an albuterol inhaler at home. No known underlying COPD diagnosis however. On exam, she has an occasional cough, and intermittent upper field wheezing, but no gross rhonchi. It might be that this is becoming a tracheobronchitis, however she is not currently short of breath, but reports that she does feel slightly labored at times. I offered a chest x-ray, which is declined at this time. I do think that she has a viral bronchitis that is aggravating her possible underlying COPD/reactive airway symptoms. She is stable however, with good oxygen saturation and she should be appropriate for outpatient treatment. I think due to possible underlying COPD however, that she should be treated as possible exacerbated COPD episode. She can continue her albuterol use as needed also. She should follow up if symptoms persist or worsen, and likely would be a candidate for chest x-ray. She knows to go to the emergency department with any worrisome symptoms. She should follow-up with PCP Dr. Dhaliwal to discuss possible pulmonary function testing to see if she does have an underlying COPD due to her smoking. Orders: Orders SARS-CoV2/FLU/RSV 05/07/24 R09.89 - Other specified symptoms and signs involving the circulatory and respiratory systems Medications: New doxycycline monohydrate 100 mg PO BID 20 caps 0RF cellulitis 10 days Coding Level of Care Code Est Pt Level 4 (73183) Diagnoses Lower respiratory infection J22
== END 2024-05-05 15:07 | disposition home or self-care (01) ==
PROVIDERS: PCP Internal Medicine; Visit Provider Physician Assistant Medical
DX: J22 Unspecified acute lower respiratory infection (principal)

== ENCOUNTER 2024-05-05 11:07 | Outpatient (REF) | payer OTHER, SELFPAY ==
[2024-05-07 11:03] LABS: Influenza A PCR NEGATIVE (Negative); Influenza B PCR NEGATIVE (Negative); Resp Syncy Virus RNA Qual PCR NEGATIVE (Negative); SARS COV2 PCR INHOUSE NEGATIVE (Negative)
== END 2024-05-05 11:08 | disposition home or self-care (01) ==
LOC: HO.LNP 11:07
PROVIDERS: PCP Internal Medicine; Visit Provider Physician Assistant Medical
DX: R09.89 Other specified symptoms and signs involving the circulatory and respiratory systems (principal)
CPT/HCPCS: 0241U

== ENCOUNTER 2024-06-14 12:56 | Outpatient (AMB) | payer OTHER, SELFPAY ==
[2024-06-14 13:12] VITALS: BP 138/90; PULSE 77; TEMP 36.9; O2SAT 97; BMI 34.8
--- NOTE | 2024-06-14 13:12 | AM.OFFWIN_ITS ---
Intake Vital Signs 06/14/24 13:12 Height 5 ft 1 in Weight 184 lb BMI 34.8 BP 138/90 H Blood Pressure Location Lt brachial Position Sitting Pulse 77 Pulse Source Pulse Oximeter Temp 98.5 F Temp Source Oral Pulse Oximetry (%) 97 Oxygen Delivery Method Room Air Intake Visit Reasons: EP runny nose, cough, ear ache Intake Note: Pt is here today c/o nasal congestion,cough and bilateral ear pain Patient Tobacco Use Status: Former Tobacco user Allergies KARIN Inhibitors [KARIN INHIBITORS] Allergy (Severe, Verified 05/05/24 14:24) LIP SWELLING amoxicillin [AMOXICILLIN] Allergy (Severe, Verified 05/05/24 14:24) THROAT ITCHING, throat irritation Iodinated Contrast Media [IODINATED CONTRAST MEDIA - IV DYE] Allergy (Severe, Verified 05/05/24 14:24) HIVES/VOMITING benazepril Allergy (Intermediate, Verified 05/05/24 14:24) angioedema celecoxib [Celebrex] Allergy (Intermediate, Verified 05/05/24 14:24) hives atorvastatin Adverse Reaction (Severe, Verified 05/05/24 14:24) severe GI side effects all nsaids (leave per Gisela) Allergy (Intermediate, Uncoded 05/05/24 14:24) renal iodine Allergy (Intermediate, Uncoded 05/05/24 14:24) vomiting HPI HPI Comments History of Present Illness Details History - The patient is a 63-year-old female pr esenting with bilateral ear pain and cough. - Acute ear pain initiated since the pre vious night, characterized by discomfort in her ears. - She indicates possible feverish episod es entailing sweating in the morning, despite not actually measuring her body temperature, and she experiences occasional warmth and chills. - Person she lives with tested positive for covid recently - She denies any prior COVID-19 tests un dertaken at home. - Currently, the patient is also experie ncing a persisting cough and mentions transient morning shortness of breath. The patient identifies they have an inhaler at home but is uncertain of its availability and mentions it will be refilled. Physical Exam General: Cooperative, healthy appearing, comfortable and no acute distress Orientation/consciousness: Patient oriented x3 Limitations: No limitations Head: Normal to inspection Ears: Hearing grossly normal bilaterally, external ears normal and TM's normal bilaterally Nose: Normal external nose present, Normal nares present and No nasal discharge present Face and sinus: Normal facial exam and Yes sinuses nontender Mouth: Normal oral and palatal mucosa present and moist mucous membranes Throat: Yes tonsils normal, Yes uvula midline. Posterior oropharynx erythema Eyes: Appearance normal, both eyes and all related structures Neck: Normal visual inspection Respiratory: Clear to auscultation bilaterally. Normal respiratory effort, able to speak in complete sentences, no respiratory distress, not tachypneic, no tripod positioning and no use of accessory muscles Cardiovascular: Regular rate and rhythm. Normal S1 and S2 Skin: No rashes or lesions noted Neuro: Patient oriented x3 Extremities: Normal to inspection and Yes no clubbing, cyanosis or edema PFSH Medical History History of COVID-19 History of heart attack Crohn's disease Goiter Multiple sclerosis Annual physical exam Adrenal mass HTN (hypertension) Hyperlipidemia NSTEMI (non-ST elevated myocardial infarction) DM type 2 (diabetes mellitus, type 2) Weakness Surgical History H/O colonoscopy History of esophagogastroduodenoscopy (EGD) Family History Mother Lung cancer Diabetes Heart disease Sister Diabetes HTN (hypertension) Sister Family history of thyroid problem HTN (hypertension) Social History Housing: Condominium Patient Tobacco Use Status: Former Tobacco user Tobacco use type: Cigarette e-Cigarette/Vaping Use: Never Used Current occupational status: employed 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 [employer] Cognitive needs: No Hearing needs: No Vision needs: Yes Review of Systems Const All systems reviewed & are unremarkable except as noted in HPI and below Physical Exam Vital Signs: Last Vital Signs Temp 98.5 F 06/14/24 13:12 Pulse 77 06/14/24 13:12 BP 138/90 H 06/14/24 13:12 Pulse Ox 97 06/14/24 13:12 Oxygen Delivery Method Room Air 06/14/24 13:12 BMI result Body Mass Index 34.8 Assessment & Plan Assessment & Plan (1) URI, acute: Code(s): J06.9 - Acute upper respiratory infection, unspecified Plan: Plan Should the Covid test return positive, Paxlovid treatment options were discussed, albeit with recognition of possible side effects. For symptomatic relief, Tylenol is recommended for fever management and Motrin for any body aches. A cough suppressant is provided for use at night to improve sleep, inhaler c/i as she is on a beta sai. Recommended adding decongestant, rest and hyration. Work note provided. CDC guidelines for Covid were given to patient. Follow-up communication will occur when test results are available. Patient was informed and verbally consented to the use of an ambient scribe for clinic note documentation during this visit Orders: Orders SARS-CoV2/FLU/RSV Today J06.9 - Acute upper respiratory infection, unspecified Medications: New benzonatate 200 mg PO TID PRN 14 caps 0RF cough Coding Level of Care Code Est Pt Level 3 (90121) Diagnoses URI, acute J06.9
== END 2024-06-14 14:04 | disposition home or self-care (01) ==
PROVIDERS: PCP Internal Medicine; Visit Provider Physician Assistant
DX: J06.9 Acute upper respiratory infection, unspecified (principal)

== ENCOUNTER 2024-06-14 12:56 | Outpatient (REF) | payer OTHER, SELFPAY ==
[2024-06-14 17:10] LABS: Influenza A PCR NEGATIVE (Negative); Influenza B PCR NEGATIVE (Negative); Resp Syncy Virus RNA Qual PCR NEGATIVE (Negative); SARS COV2 PCR INHOUSE POSITIVE (Negative)
== END 2024-06-14 12:57 | disposition home or self-care (01) ==
LOC: HO.LAB 12:56
PROVIDERS: PCP Internal Medicine; Visit Provider Physician Assistant
DX: J06.9 Acute upper respiratory infection, unspecified (principal); U07.1 COVID-19
CPT/HCPCS: 0241U

== ENCOUNTER 2024-07-31 15:11 | Outpatient (AMB) | payer OTHER, SELFPAY ==
--- NOTE | 2024-07-31 15:18 | A.OFFVIS_ITS ---
Vital Signs 07/31/24 15:19 Height 5 ft 1 in Weight 186 lb 8.177 oz BMI 35.2 BP 150/74 H Blood Pressure Location Rt brachial Position Sitting Pulse 76 Pulse Source Pulse Oximeter Pulse Oximetry (%) 96 Oxygen Delivery Method Room Air Intake Visit Reasons: 1 year follow up Crohn disease Intake Note: ESTABLISHED PATIENT for mgmt of Crohn's, most recently in remission. Chief Complaint; Pt denies any GI concerns currently, reports having normal BM schedule. Philosophy Faculty Required: No Accompanied by: Self / Same As Patient Allergies KARIN Inhibitors [KARIN INHIBITORS] Allergy (Severe, Verified 07/31/24 15:19) LIP SWELLING amoxicillin [AMOXICILLIN] Allergy (Severe, Verified 07/31/24 15:19) THROAT ITCHING, throat irritation Iodinated Contrast Media [IODINATED CONTRAST MEDIA - IV DYE] Allergy (Severe, Verified 07/31/24 15:19) HIVES/VOMITING benazepril Allergy (Intermediate, Verified 07/31/24 15:19) angioedema celecoxib [Celebrex] Allergy (Intermediate, Verified 07/31/24 15:19) hives atorvastatin Adverse Reaction (Severe, Verified 07/31/24 15:19) severe GI side effects all nsaids (leave per Gisela) Allergy (Intermediate, Uncoded 07/31/24 15:19) renal iodine Allergy (Intermediate, Uncoded 07/31/24 15:19) vomiting HPI HPI 1 year follow up Crohn disease: Details: LAST VISIT 12/02/2022 Crohn disease Patient is in remission. Continue current diet. Patient will return in 1 year to reassess. Patient will call the office ifl she will have any GI concerning symptoms. Patient is agreeable to this plan and verbalizes understanding of instructions. She was given the opportunity to ask questions all questions answered. ? TODAY'S VISIT Patient is here today for follow-up. Patient missed appointment last year, due to go for colonoscopy. Last colonoscopy in October of 2021 and patient was supposed to return for colorectal screening in 2-3 years. Patient reports that she has been doing quite well. Denies any abdominal pain or discomfort. Currently in remission and is not taking any medications for Crohn's. Denies any GI concerning symptoms. Patient denies any issues with anesthesia in the past. No history of sleep apnea. Patient is on low-dose aspirin. Patient denies melena, hematochezia, unintentional weight loss or ribbon like stools. Denies dyspepsia, dysphagia or odynophagia PFSH Medical History History of COVID-19 History of heart attack Crohn's disease Goiter Multiple sclerosis Annual physical exam Adrenal mass HTN (hypertension) Hyperlipidemia NSTEMI (non-ST elevated myocardial infarction) DM type 2 (diabetes mellitus, type 2) Weakness Surgical History H/O colonoscopy History of esophagogastroduodenoscopy (EGD) Family History Mother Lung cancer Diabetes Heart disease Sister Diabetes HTN (hypertension) Sister Family history of thyroid problem HTN (hypertension) Social History Housing: Condominium Patient Tobacco Use Status: Former Tobacco user Tobacco use type: Cigarette e-Cigarette/Vaping Use: Never Used Current occupational status: employed 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 Cognitive needs: No Hearing needs: No Vision needs: Yes Review of Systems Const Denies weight gain and Denies weight loss ENT Reports no additional complaints, Denies dysphagia and Denies odynophagia Card Reports no additional complaints Resp Reports no additional complaints GI Denies abdominal pain, Denies belching, Denies melena, Denies bloating, Denies change in bowel habits, Denies dysphagia, Denies excessive flatus, Denies dyspepsia, Denies heartburn, Denies diarrhea, Denies loose stools, Denies nausea, Denies odynophagia and Denies vomiting Reports no additional complaints Musc Reports no additional complaints Neuro Reports no additional complaints Psych Reports no additional complaints Endo Reports no additional complaints Physical Exam Vital Signs: Last Vital Signs Pulse 76 07/31/24 15:19 BP 150/74 H 07/31/24 15:19 Pulse Ox 96 07/31/24 15:19 Oxygen Delivery Method Room Air 07/31/24 15:19 BMI result Body Mass Index 35.2 Const General: healthy appearing, no acute distress and well developed Nutritional Appearance: obese Orientation/consciousness: patient oriented x3 Resp Effort & Inspection: normal respiratory effort, able to speak in complete sentences, no tracheal deviation and symmetric chest movement Auscultation: clear to auscultation bilaterally Cardio Rate: regular rate GI Inspection: Yes normal to inspection, No distended and Yes obesity Palpation (GI): Soft to palpation, not firm, nontender and No hepatosplenomegaly present Auscultation: normal bowel sounds General: Yes no CVA tenderness Back/Spine/Pelvis Back: no CVA tenderness Skin General skin exam: elasticity normal, turgor normal and dry skin Neuro General: patient oriented x3 Psych Appearance: grossly normal Mental Status: mental status grossly normal Assessment & Plan Assessment & Plan (1) Hx of colonoscopy with polypectomy: Code(s): Z98.890 - Other specified postprocedural states; Z86.010 - Personal history of colon polyps Category: Surgical (2) Crohn disease: Code(s): K50.90 - Crohn's disease, unspecified, without complications (3) Screen for colon cancer: Code(s): Z12.11 - Encounter for screening for malignant neoplasm of colon Plan Patient denies any cardiac or respiratory symptoms. However she sees [facility], please call them for clearance. Patient denies any issues with anesthesia in the past. No history of sleep apnea. Takes aspirin daily. What to expect before during and after procedure discussed with patient. Stressed importance of clear liquid diet an good bowel prep day before procedure. I will see patient after the procedure, sooner on as needed basis. She is agreeable to this plan and verbalizes understanding of instructions. She was given the opportunity to ask questions and all questions answered. Thank you for allowing to participate in her care Medications: New bisacodyl (Dulcolax (bisacodyl)) take 4 tabs at noon the day before your colonoscopy 20 mg (4 x 5 mg) PO ONCE 4 tabs 0RF 1 day Z12.11 - Encounter for screening for malignant neoplasm of colon polyethylene glycol 3350 (Miralax) As directed by gastroenterology department at [facility] 238 grams PO ONCE 238 grams 0RF Z12.11 - Encounter for screening for malignant neoplasm of colon Coding Level of Care Code Est Pt Level 3 (45405) Diagnoses Hx of colonoscopy with polypectomy Z98.890; Z86.010 Crohn disease K50.90 Screen for colon cancer Z12.11 Time Spent (min) 35 Comment 25 minute spent with patient and additional 10 minutes spent reviewing her records
[2024-07-31 15:19] VITALS: BP 150/74; PULSE 76; O2SAT 96; BMI 35.2
--- OUTSIDE RECORDS SUMMARY | 2024-07-31 18:57 | XMS_ITS | Clinical Summary ---
Author Organization [facility] Address [address] [place] [address] Care Team Providers Care Supervisor Veneer Name Role Phone Liz Dhaliwal MD Primary Care Provider [phone] Allergies Active Allergy Reactions Criticality Noted Date Comments Amoxicillin Trihydrate 09/29/2006 Amoxil Other Reaction(s): Numbness, tingling or swelling of the lips, tongue or mouth Benazepril Hcl Swelling 07/06/2006 Lip & face Celecoxib Swelling High 06/04/2013 Other Reaction(s): Hives/Urticaria Iodinated Contrast Media 05/19/2005 Other Reaction(s): Hives/Urticaria Medications clopidogreL (PLAVIX) 75 mg tablet Take 1 tablet by mouth once daily 90 tablet 1 04/30/2024 Active carvediloL (COREG) 12.5 mg tablet TAKE 1 TABLET BY MOUTH TWICE DAILY WITH MEALS 180 tablet 1 04/30/2024 Active VITAMIN B COMPLEX ORAL Take 1 Tablet by mouth. 3 times a week Active blood-glucose meter misc Check BS daily 06/05/2012 Active cholecalciferol (VITAMIN D-3) 5,000 Units tablet Take by mouth. 3 times a week Active empagliflozin (Jardiance) 25 mg tablet Take by mouth daily. Active aspirin 81 mg EC tablet Take 1 tablet by mouth once daily 11/24/2023 Active felodipine (PLENDIL) 5 mg 24 hr tablet Take 1 Tablet by mouth daily for 360 days. 11/15/2023 Active losartan (COZAAR) 100 mg tablet Take 1 tablet by mouth once daily 11/02/2023 Active metFORMIN (GLUCOPHAGE) 500 mg tablet Take 1 Tab by mouth 2 times daily (with meals). 06/11/2013 Active rosuvastatin (CRESTOR) 20 mg tablet Take 1 tablet by mouth once daily 11/02/2023 Active Active Problems Problem Noted Date Diagnosed Date Coronary artery disease invo lving [place] coronary artery of [place] heart without angina pectoris 12/31/2020 Von Willebrand disease 12/31/2020 Diabetes mellitus, type 2 02/18/2013 Overview (05/25/2024): Diabetes mellitus type 2, uncontrolled Hyperlipidemia 11/28/2012 Microalbuminuria 11/28/2012 Recurrent UTI 06/05/2012 Obesity 05/26/2011 Vitamin D deficiency 12/15/2009 Goiter, nodular 02/09/2008 Overview (05/25/2024): /; FNA 02/11: benign Abnormality of gait 03/10/2007 Pain in limb 03/10/2007 Cardiac murmur 06/04/2005 Overview (05/25/2024): echocardiogram 2000 neg Hypertension 05/19/2005 Overview (05/25/2024): Benazepril; gave swollen lip Multiple sclerosis 05/19/2005 Regional enteritis 05/19/2005 Overview (05/25/2024): 09/30/09: inactive Scleritis 05/19/2005 Overview (05/25/2024): IMO update Encounters Date Type Department Care Team Description 05/24/2024 Telephone [facility] Cardiology [facility] [address] [place] [address] Vidal Pritchard MD Results 05/16/2024 Telephone [facility] Cardiology [facility] [address] [place] [address] Vidal Pritchard MD Call from MD office from Last 3 Months Immunizations Name Administration Dates Next Due Influenza trivalent, 0.5mL, preservative free (Fluarix; FluLaval; Fluzone) ages 6mo and older (Afluria) 3 years and older 02/23/2013,03/23/2012,03/31/2011,05/12,05/09/2009,04/01/2008,04/06/2007 ,04/07/2005 Pneumococcal polysaccharide 23 valent (Pneumovax 23) 2yo and older 04/17/2002 Tdap Tetanus diptheria acell ular pertussis (Boostrix; Adacel) 7yo and older 01/12/2008 Surgical History Surgery Date Site/Laterality Comments CHOLECYSTECTOMY PROCEDURE: HISTORICAL CHOLECYSTECTOMY APPENDECTOMY PROCEDURE: HISTORICAL APPENDECTOMY COLONOSCOPY 08/20/03 PROCEDURE: AL COLONOSCOPY STOMA DX INCLUDING COLLJ SPEC SPX; COMMENT: Dr. Luu MAMMOGRAM ZABRINA 06/12 PROCEDURE: MAMMOGRAM, SCREENING, BOTH BREASTS; COMMENT: neg OTHER SURGICAL HISTORY 08/09 PROCEDURE: PAP SMEAR (1 SLIDE); COMMENT: Coretta; neg PARTIAL HYSTERECTOMY 11/07/06 PROCEDURE: AL SUPRACERVICAL ABDL HYSTER W/WO RMVL TUBE OVARY; COMMENT: Karlee; Midurethral sling OTHER SURGICAL HISTORY 12/06 PROCEDURE: AL CV STRS TST XERS&/OR RX CONT ECG W/SI&R; COMMENT: neg TONSILLECTOMY PROCEDURE: HISTORICAL TONSILLECTOMY HYSTERECTOMY 2006 PROCEDURE: HISTORICAL HYSTERECTOMY; COMMENT: partial vag fibroids KNEE ARTHROSCOPY 04/14 PROCEDURE: AL ARTHROSCOPY KNEE DIAGNOSTIC W/WO SYNOVIAL BX SPX; COMMENT: Kareen; Left TOTAL KNEE ARTHROPLASTY 05/18 PROCEDURE: AL ARTHRP KNE CONDYLE&PLATU MEDIAL&LAT COMPARTMENTS; COMMENT: Left Medical History Medical History Date Comments Regional enteritis of unspecified site 5 DX:Regional enteritis of unspecified site Multiple sclerosis (CMS/HCC) 05/19/2005 DX: Multiple sclerosis (HCC) Scleritis, unspecified 05/19/2005 DX:Scleri tis, unspecified Undiagnosed cardiac murmurs 06/04/2005 DX:U ndiagnosed cardiac murmurs Undiagnosed cardiac murmurs 06/04/2005 DX:U ndiagnosed cardiac murmurs; COMMENT: SBE prophylaxis Goiter, nodular 02/09/2008 DX:Goiter, nodul ar; COMMENT: 01/11 Essential hypertension, benign 05/19/2005 D X:Essential hypertension, benign Obesity 05/26/2011 DX:Obesity Recurrent UTI 06/05/2012 DX:Recurrent UTI Hyperlipidemia 11/28/2012 DX:Hyperlipidemi a Microalbuminuria 11/28/2012 DX:Microalbumin uria Adrenal mass (CMS/HCC) DX:Adrena l mass (HCC) Renal disorder DX:Renal disorde r Type 2 diabetes mellitus (CMS/HCC) DX:Type 2 diabetes mellitus (HCC) Hyperthyroidism DX:Hyperthyroidi sm Non-toxic multinodular goiter DX :Non-toxic multinodular goiter Vitamin D deficiency DX:Vitamin D deficiency Family History Medical History Relation Name Comments Diabetes Mother type 2 Heart attack Mother Hyperlipidemia Mother Hypertension Mother Lung cancer Mother Malignant tumor COPD Sister Thyroid disease Sister Relation Name Status Comments Mother Sister Social History Tobacco Use Types Packs/Day Years Used Date Smoking Tobacco: Former Cigarettes Q uit: 03/15/1996 Smokeless Tobacco: Never Alcohol Use Standard Drinks/Week Comments Yes 0 (1 standard drink = 0.6 oz pur e alcohol) Comments Unknown Sex and Gender Information Value Date Recorded Sex Assigned at Not on file Legal Sex Female 4:36 PM EST Gender Identity Not on file Sexual Orientation Not on file Obstetrics History Last Filed Vital Signs Vital Sign Reading Time Taken Comments Blood Pressure 119/68 11/15/2023 1:47 PM EDT Sit ting L Arm Pulse 55 11/15/2023 1:47 PM EDT Temperature - - Respiratory Rate - - Oxygen Saturation - - Inhaled Oxygen Concentration - - Weight 83.9 kg (185 lb) 11/15/2023 1:47 PM EDT Height 154.9 cm (5' 1 ) 11/15/2023 1:47 PM EDT Body Mass Index 34.96 11/15/2023 1:47 PM EDT Plan of Treatment Upcoming Encounters Date Type Department Care Team (Late st Contact Info) Description 10/25/2024 10:40 AM EDT Office Visit [facility] [address] [place] [address] Jordon White NP [address] [place] [address] [address] [place] [address] Health Maintenance Due Date Last Done Comments Breast Cancer Screening 1962 Diabetes: Annual Foot Exam 1972 Diabetes: Annual Retina Eye Exam 1972 Pneumococcal Vaccine: 50+ Years (2 of 2 - PCV) 04/17/2003 04/17/2002 Pneumococcal Vaccine: Pediatrics (0 to 5 Years) and At-Risk Patients (6 to 64 Years) (2 of 2 - PCV) 04/17/2003 04/17/2002 Zoster Vaccines (1 of 2) 2012 Diabetes: Annual GFR (Glomerular Filtration Rate) 06/11/2014 06/11/2013 DTaP,Tdap,and Td Vaccines (2 - Td or Tdap) 01/11/2018 01/12/2008 Cholesterol Screening (Lipid Panel) 05/15/2022 06/11/2013 Colorectal Cancer Screening: Colonoscopy 05/15/2022 Depression Screening 05/15/2022 HIV Screening 05/15/2022 Social Influencers of Health Screening 05/15/2022 Hypertension/CHF/CAD Annual BMP Blood Test 05/16/2022 06/11/2013 Diabetes: Annual Urine Albumin-Creatinine Ratio (uACR) 05/22/2022 06/14/2013 Diabetes: Blood Sugar Control Test (HGBA1C) 05/22/2022 06/11/2013 RSV Immunization Patients 60+ Years Old (1 - Risk 60-74 years 1-dose series) 2022 COVID-19 Vaccine ( season) 2024 Influenza Vaccine (#1) 2024 3, 03/23/2012, 03/31/2011, Additional history exists Hepatitis C Screening Completed 06/11/2013 HIB Vaccines Aged Out No longer eligi ble based on patient's age to complete this topic HPV Vaccines Aged Out No longer eligi ble based on patient's age to complete this topic Hepatitis A Vaccines Aged Out No long er eligible based on patient's age to complete this topic Hepatitis B Vaccines Aged Out No long er eligible based on patient's age to complete this topic IPV Vaccines Aged Out No longer eligi ble based on patient's age to complete this topic MMR Vaccines Aged Out No longer eligi ble based on patient's age to complete this topic Meningococcal ACWY Vaccine Aged Out N o longer eligible based on patient's age to complete this topic Meningococcal B Vacine Aged Out No lo nger eligible based on patient's age to complete this topic RSV Immunization Patients Under 20 months Aged Out No longer eligible based on patient's age to complete this topic Varicella Vaccines Aged Out No longer eligible based on patient's age to complete this topic Procedures Procedure Name Priority Date/Time Associated Diagnosis Comments URINE ALBUMIN CREATININE RATIO Routine 06/14/2013 HEPATITIS C SCREENING Routine 06/11/2013 ANNUAL BMP BLOOD TEST Routine 06/11/2013 HEMOGLOBIN A1C Routine 06/11/2013 LIPID PANEL Routine 06/11/2013 from Last 3 Months or Most Recently Relevant to Health Maintenance Results * Urine Albumin Creatinine Ratio (06/14/2013) Pathologist [facility] Urine Albumin Creatinine Ratio Abstracted Result [facility] HEALTH MAINTENANCE Final Result * Annual BMP Blood Test (06/11/2013) Pathologist [facility] Annual BMP Blood Test Abstracted Result [facility] HEALTH MAINTENANCE Final Result * Hepatitis C Screening (06/11/2013) Pathologist [facility] Hepatitis C Screening Abstracted Result [facility] HEALTH MAINTENANCE Final Result * (ABNORMAL) Hemoglobin A1c (06/11/2013) [facility] Hemoglobin A1C 6.1(A) 4.0 - 6.0 % Blood Venous blood specimen / Unknown Result [facility] Provider LAB BLOOD ORDERABLES Leila l Result * (ABNORMAL) Lipid panel (06/11/2013) Pathologist [facility] LDL/HDL Ratio 4 0 - 4 Triglycerides 144 0 - 150 mg/dL Cholesterol 189 0 - 200 mg/dL HDL 45 >=40 mg/dL LDL Cholesterol 116(A) 0 - 100 mg/dL Blood Venous blood specimen / Unknown Result [facility] Provider LAB BLOOD ORDERABLES Leila l Result from Last 3 Months or Most Recently Relevant to Health Maintenance Insurance [facility] Care Teams Supervisor Veneer Relationship Specialty Start Date End Date Liz Dhaliwal MD PCP - General 01/13/19
--- OUTSIDE RECORDS SUMMARY | 2024-07-31 18:57 | XMS_ITS | Patient Health Record ---
Author [facility] Address [address] [address] Care Team Providers Care Combine Mechanic Name Role Phone Liz Dhaliwal MD Primary Care Provider Tim Fontanez Unavailable [phone] Allergies Allergen (clinical drug ingredient) Drug/Non Drug Allergy documented on EMR Reaction Allergy Type Onset Date Status narcotics (uncoded) Vomiting, itchy Allergy Active celecoxib CeleBREX hives Drug Allergy Active benzalkonium Merthiolate hives Drug Allergy Ac tive amoxicillin Amoxicillin throat itchy Drug Allergy Active codeine Codeine Unknown Drug Allergy Active hydrocodone Hydrocodone Unknown Drug Allergy Act monet Iodine hives Drug Allergy Active Reason For Referral No Information Medications Medication SIG (Take, Route, Frequency, Duration) Notes Start Date End Date Status Losartan Potassium 100 MG as directed Orally Active Felodipine Active Carvedilol Active Aspirin 81 MG as directed Orally Active Rosuvastatin Calcium 40 MG 1 tablet Oral ly Once a day for 30 day(s) Active metFORMIN HCl 500 MG 1 tablet with a nina l Orally Once a day Active Jardiance 25 MG as directed Orally Active Clopidogrel Bisulfate Active Social History Tobacco Use: Social History Observation Description Date Details (start date - stop date) Former Smoker NA - NA Tobacco Use/Smoking Question Answer Notes Are you a: former smoker Additional Findings: Tobacco Non-User Current no n-smoker Alcohol Screen Question Answer Notes Did you have a drink contain ing alcohol in the past year? Yes How often did you have a dri nk containing alcohol in the past year? 2 to 3 times a week (3 points) Points 3 Interpretation Positive Tobacco use other than smoking: Question Answer Notes Are you an other tobacco user? No Problems Problem Type SNOMED Code ICD Code Onset Dates Problem Status W/U Status Risk Notes Problem Acquired hallux valgus (80914437) Hallux valgus (acquired), right foot (M20.11) Active confirmed Problem Acquired hallux rigidus (3358719) Hallux rigidus, left foot (M20.22) Active confirmed Problem Polyneuropathy due to type 2 diabetes mellitus (471817921) Type 2 diabetes mellitus with diabetic polyneuropathy (E11.42) Active confirmed Plan Of Treatment Pending Test Test Name Order Date X ray : Foot, left 3V 03/11/2022 X ray : Foot, right 3V 03/11/2022 Insurance Providers Payer Name Payer Address Payer Phone Subscriber Number Group Number Insured Name Patient Relationship to Insured Coverage Start Date Coverage End Date [facility] [address] [place] [phone] [id number] Mayra Lou Self - patient is the insured Medical (General) History Medical History History ICD Code Anemia Arthritis Back,Hip,and Knee pain Broken bones Cholesterol covid-19 Crohns disease Diabetic Gall bladder problems Heart disease High blood pressure Kidney disease Multiple sclerosis Neuropathy Sickle cell trait chronic sinusitis thyroid Bone implants/screws Mumps Chicken pox Surgical History Surgery Date(Month/Year) knee replacement x2 2012,2013 Stent x2 gall bladder 1988 hysterectomy 2006
== END 2024-07-31 15:58 | disposition home or self-care (01) ==
PROVIDERS: PCP Internal Medicine; Visit Provider Nurse Practitioner Family
DX: Z01.818 Encounter for other preprocedural examination (principal); Z12.11 Encounter for screening for malignant neoplasm of colon; Z86.0100 Personal history of colon polyps, unspecified; K50.90 Crohn's disease, unspecified, without complications
CPT/HCPCS: 99212

== ENCOUNTER 2024-11-12 11:35 | Day surgery (SDC) | payer OTHER, SELFPAY ==
--- OUTSIDE RECORDS SUMMARY | 2024-10-16 12:39 | XMS_ITS | Patient Health Record ---
Author [facility] Address [address] [place] [address] Care Team Providers Care Political Advisor Name Role Phone Liz Dhaliwal MD Primary Care Provider Tim Fontanez Unavailable [phone] Allergies Allergen (clinical drug ingredient) Drug/Non Drug [...] Status Risk Notes Problem Acquired hallux valgus (78113590) Hallux valgus (acquired), right foot (M20.11) Active confirmed Problem Acquired hallux rigidus (4926158) Hallux rigidus, left foot (M20.22) Active confirmed Problem Polyneuropathy due to type 2 diabetes mellitus (074662292) Type 2 diabetes mellitus with diabetic polyneuropathy (E11.42) Active confirmed Plan Of Treatment Pending Test Test Name Order Date X ray : Foot, left 3V 03/11/2022 X ray : Foot, right 3V 03/11/2022 Insurance Providers Payer Name Payer Address Payer Phone Subscriber Number Group Number Insured Name Patient Relationship to Insured Coverage Start Date Coverage End Date [facility] [address] [place] [phone] [id number] Mayra Lou Self - patient is the [...]
--- OUTSIDE RECORDS SUMMARY | 2024-10-16 12:39 | XMS_ITS | Clinical Summary ---
Author Organization [facility] Address [address] [place] [address] Care Team Providers Care Suture Polisher Name Role Phone Liz Dhaliwal MD Primary Care Provider [phone] Allergies Active Allergy Reactions Criticality Noted Date [...] mg tablet Take by mouth daily. Active felodipine (PLENDIL) 5 mg 24 hr tablet Take 1 Tablet by mouth daily for 360 days. 11/15/2023 Active metFORMIN (GLUCOPHAGE) 500 mg tablet Take 1 Tab by mouth 2 times daily (with meals). 06/11/2013 Active rosuvastatin (CRESTOR) 20 mg tablet Take 1 tablet by mouth once daily 90 tablet 1 08/03/2024 Active losartan (COZAAR) 100 mg tablet Take 1 tablet by mouth once daily 90 tablet 1 08/03/2024 Active aspirin 81 mg EC tablet Take 1 tablet by mouth once daily 90 tablet 2 08/03/2024 Active Active Problems Problem Noted Date Diagnosed Date Coronary artery disease invo lving [place] coronary artery of [place] heart without angina pectoris 12/31/2020 Von Willebrand disease ([facility] V24, [facility] V28 ) 12/31/2020 Diabetes mellitus, type 2 ([facility] V24, [facility] V28) 02/18/2013 Overview (05/25/2024): Diabetes mellitus type 2, uncontrolled Hyperlipidemia 11/28/2012 Microalbuminuria 11/28/2012 Recurrent UTI 06/05/2012 Obesity 05/26/2011 Vitamin D deficiency 12/15/2009 Goiter, nodular 02/09/2008 Overview (05/25/2024): 01/11; FNA 02/11: benign Abnormality of gait 03/10/2007 Pain in limb 03/10/2007 Cardiac murmur 06/04/2005 Overview (05/25/2024): echocardiogram 2000 neg Hypertension 05/19/2005 Overview (05/25/2024): Benazepril; gave swollen lip Multiple sclerosis ([facility] V24, [facility] V28) Regional enteritis ([facility] V24, [facility] V28) Overview (05/25/2024): 09/30/09: inactive Scleritis 05/19/2005 Overview (05/25/2024): IMO update Encounters Date Type Department Care Team Description 08/24/2024 Telephone [facility] Cardiology Associates [facility] [address] [place] [address] Jordon White NP Kim from [facility] from Last 3 Months Immunizations Name Administration [...] APPENDECTOMY PROCEDURE: HISTORICAL APPENDECTOMY COLONOSCOPY 08/20/03 PROCEDURE: [place] COLONOSCOPY STOMA DX INCLUDING COLLJ SPEC SPX; COMMENT: Dr. Luu MAMMOGRAM ZABRINA 06/12 PROCEDURE: MAMMOGRAM, SCREENING, BOTH BREASTS; COMMENT: neg OTHER SURGICAL HISTORY 08/09 PROCEDURE: PAP SMEAR (1 SLIDE); COMMENT: Coretta; neg PARTIAL HYSTERECTOMY 11/07/06 PROCEDURE: NH SUPRACERVICAL ABDL HYSTER W/WO RMVL TUBE OVARY; COMMENT: Karlee; Midurethral sling OTHER SURGICAL HISTORY 12/06 PROCEDURE: NH CV STRS TST XERS&/OR RX CONT ECG W/SI&R; COMMENT: neg TONSILLECTOMY PROCEDURE: HISTORICAL TONSILLECTOMY HYSTERECTOMY 2006 PROCEDURE: HISTORICAL HYSTERECTOMY; COMMENT: partial vag fibroids KNEE ARTHROSCOPY 04/14 PROCEDURE: NH ARTHROSCOPY KNEE DIAGNOSTIC W/WO SYNOVIAL BX SPX; COMMENT: Desiraeand; Left TOTAL KNEE ARTHROPLASTY 05/18 PROCEDURE: NH ARTHRP KNE CONDYLE&PLATU MEDIAL&LAT COMPARTMENTS; COMMENT: Left Medical History Medical History Date Comments Regional enteritis of unspecified site 5 DX:Regional enteritis of unspecified site Multiple sclerosis (CMS/HCC V24, CMS/HCC V28) 05/19/2005 DX:Multiple sclerosis (HCC) Scleritis, unspecified 05/19/2005 DX:Scleri tis, unspecified Undiagnosed cardiac murmurs 06/04/2005 DX:U ndiagnosed cardiac murmurs Undiagnosed cardiac murmurs 06/04/2005 DX:U ndiagnosed cardiac murmurs; COMMENT: SBE prophylaxis Goiter, nodular 02/09/2008 DX:Goiter, nodul ar; COMMENT: 01/11 Essential hypertension, benign 05/19/2005 D X:Essential hypertension, benign Obesity 05/26/2011 DX:Obesity Recurrent UTI 06/05/2012 DX:Recurrent UTI Hyperlipidemia 11/28/2012 DX:Hyperlipidemi a Microalbuminuria 11/28/2012 DX:Microalbumin uria Adrenal mass (CMS/HCC V24) DX:Ad renal mass (HCC) Renal disorder DX:Renal disorde r Type 2 diabetes mellitus (CM S/HCC V24, CMS/HCC V28) DX:Type 2 diabetes mellitus (HCC) Hyperthyroidism DX:Hyperthyroidi [...] Contact Info) Description 10/25/2024 10:40 AM EDT Consult [facility] [address] [place] [address] Jordon White NP [address] [place] [address] [address] [place] [address] Health Maintenance Due Date Last Done Comments [...] Control Test (HGBA1C) 05/22/2022 06/11/2013 RSV Immunization Adult Patients (1 - Risk 60-74 years 1-dose series) 2022 COVID-19 Vaccine ( season) 2024 Influenza Vaccine (Season Ended) 2025 02/23/2013, 03/23/2012, 03/31/2011, Additional history exists Hepatitis C [...] age to complete this topic Meningococcal B Vaccine Aged Out No l onger eligible based on patient's age to complete [...] * Urine Albumin Creatinine Ratio (06/14/2013) Pathologist [facility] Urine Albumin Creatinine Ratio Abstracted Result [facility] HEALTH MAINTENANCE Final Result * Annual BMP Blood Test (06/11/2013) Pathologist [facility] Annual BMP Blood Test Abstracted Result [facility] HEALTH MAINTENANCE Final Result * Hepatitis C Screening (06/11/2013) [facility] Hepatitis C Screening Abstracted Result [facility] HEALTH MAINTENANCE Final Result * (ABNORMAL) Hemoglobin A1c (06/11/2013) [facility] Hemoglobin A1C 6.1(A) 4.0 - 6.0 % Blood Venous blood specimen / Unknown Result [facility] Provider LAB BLOOD ORDERABLES Leila l Result * (ABNORMAL) Lipid panel (06/11/2013) [facility] LDL/HDL Ratio 4 0 - 4 Triglycerides 144 0 - 150 mg/dL Cholesterol 189 0 - 200 mg/dL HDL 45 >=40 mg/dL LDL Cholesterol 116(A) 0 - 100 mg/dL Blood Venous blood specimen / Unknown Result [facility] Provider LAB BLOOD ORDERABLES Leila l Result from Last 3 Months or Most Recently Relevant to Health Maintenance Insurance [facility] Care Teams Suture Polisher Relationship Specialty Start Date End Date Liz Dhaliwal MD PCP - General 01/13/19
[2024-11-08 14:25] VITALS: BMI 35.3
--- NOTE | 2024-11-09 12:52 | P.CONAN_ITS ---
Documented by User: Rose Zhang NP 11/09/24 12:57 HPI - Anesthesia Eval Consult details Narrative: 64yo F for Colonoscopy Optimized for colo per cardiology 10/2024 office visit. Follows [facility] for: CAD s/p NSTEMI, stenting 2019 HTN/HLD Cardiac murmur - no signif valve abn per 2019 echo Anesthesia Pre-Procedure Meds Is the patient on any of the following meds?: SGLT2 Inhib PMFSH Active Problems Active Problems: All Active Problems URI, acute (Acute) Bronchitis (Acute) Acute cystitis (Acute) ETOH abuse (Acute) Vitamin D deficiency (Acute) Hx of colonoscopy with polypectomy (Acute) Plantar fasciitis, right (Acute) Fracture of fifth toe, right, closed (Acute) Contusion of foot, right (Acute) Fracture of greater tuberosity of humerus (Acute) Sprain of right shoulder (Acute) Foreign body, eye (Acute) Body aches (Acute) Exposure to confirmed case of COVID-19 (Acute) Sprain of ankle (Acute) Paronychia (Acute) Goiter (Acute) Multiple sclerosis (Acute) Annual physical exam (Acute) Adrenal mass (Acute) HTN (hypertension) (Acute) Hyperlipidemia (Acute) NSTEMI (non-ST elevated myocardial infarction) (Acute) DM type 2 (diabetes mellitus, type 2) (Acute) Weakness (Acute) Past Medical History Medical History History of COVID-19 History of heart attack Crohn's disease Goiter Multiple sclerosis Annual physical exam Adrenal mass HTN (hypertension) Hyperlipidemia NSTEMI (non-ST elevated myocardial infarction) DM type 2 (diabetes mellitus, type 2) Weakness Family History Family History Mother Lung cancer Diabetes Heart disease Sister Diabetes HTN (hypertension) Sister Family history of thyroid problem HTN (hypertension) Family history of problems with anesthesia: No Surgical History Surgical History H/O colonoscopy (10/26/21) History of esophagogastroduodenoscopy (EGD) History of Problems with Anesthesia: No Social History Social History Household Members Other:: sister and niece Housing: Condominium Housing Other:: [facility] Are you a primary childcare center administrator to a significant other at home: No Do you presently have visiting nurse or other home services: No Patient Tobacco Use Status: Former Tobacco user Tobacco use type: Cigarette e-Cigarette/Vaping Use: Never Used Have you been hit, kicked, punched, or otherwise hurt by someone within the past year? 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[employer] Cognitive needs: No Hearing needs: No Vision needs: Yes Meds Allergies Allergy/AdvReac Type Severity Reaction Status Date / Time KARIN Inhibitors Allergy Severe LIP Verified 11/12/24 12:00 [KARIN INHIBITORS] SWELLING amoxicillin [AMOXICILLIN] Allergy Severe THROAT Verified 11/12/24 12:00 ITCHING, throat irritation Iodinated Contrast Media Allergy Severe HIVES/VOMIT Verified 11/12/24 12:00 [IODINATED CONTRAST MEDIA - ING IV DYE] benazepril Allergy Intermediate angioedema Verified 11/12/24 12:00 celecoxib [Celebrex] Allergy Intermediate hives Verified 11/12/24 12:00 atorvastatin AdvReac Severe severe GI Verified 11/12/24 12:00 side effects all nsaids (leave per Allergy Intermediate renal Uncoded 11/12/24 12:00 Gisela) iodine Allergy Intermediate vomiting Uncoded 11/12/24 12:00 Home Medications ?Medication ?Instructions ?Recorded ?Confirmed ?Last Taken ?Type aspirin 81 mg tablet,delayed 81 mg PO DAILY 02/10/21 11/12/24 11/11/24 History release carvedilol 12.5 mg tablet 12.5 mg PO BID 02/10/21 11/12/24 11/12/24 History losartan 100 mg tablet 100 mg PO DAILY 02/10/21 11/12/24 Unknown History metformin 500 mg tablet,extended 500 mg PO BID 02/10/21 11/12/24 Unknown History release 24 hr rosuvastatin 20 mg tablet 20 mg PO DAILY 02/10/21 11/12/24 Unknown History empagliflozin 25 mg tablet 25 mg PO DAILY 08/07/21 11/12/24 11/06/24 History (Jardiance) cholecalciferol (vitamin D3) 50 50 mcg PO DAILY 12/02/21 11/12/24 Unknown History mcg (2,000 unit) capsule vitamin B complex (B 1 tab PO DAILY 12/02/21 11/12/24 Unknown History Complex-Vitamin B12 tablet) felodipine 5 mg tablet,extended 5 mg PO DAILY 07/31/24 11/12/24 Unknown History release 24 hr Exam Height,Weight and Vital Signs: Height 5 ft 1 in Weight 84.708 kg Narrative Narrative: EKG 10/2024 NSR @ 73 T wave abn, consider lateral ischemia Assessment and Plan Assessment Anesthesia Assessment: Chart Reviewed Final Anesthetic Review Family History of Problems with Anesthesia: No History of Problems with Anesthesia: No Documented by User: Zak Moe MD 11/12/24 13:52 [facility] Past Medical History Medical History History of COVID-19 History of heart attack Crohn's disease Goiter Multiple sclerosis Annual physical exam Adrenal mass HTN (hypertension) Hyperlipidemia NSTEMI (non-ST elevated myocardial infarction) DM type 2 (diabetes mellitus, type 2) Weakness Family History Family History Mother Lung cancer Diabetes Heart disease Sister Diabetes HTN (hypertension) Sister Family history of thyroid problem HTN (hypertension) Family history of problems with anesthesia: No Surgical History Surgical History H/O colonoscopy (10/26/21) History of esophagogastroduodenoscopy (EGD) Social History Social History Household Members Other:: sister and niece [facility] Other[facility] Are you a primary childcare center administrator to a significant other at home: No Do you presently have visiting nurse or other home services: No Patient Tobacco Use Status: Former Tobacco user Tobacco use type: Cigarette e-Cigarette/Vaping Use: Never Used Have you been hit, kicked, punched, or otherwise hurt by someone within the past year? 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[employer] Cognitive needs: No Hearing needs: No Vision needs: Yes Meds Allergies Allergy/AdvReac Type Severity Reaction Status Date / Time KARIN Inhibitors Allergy Severe LIP Verified 11/12/24 12:00 [KARIN INHIBITORS] SWELLING amoxicillin [AMOXICILLIN] Allergy Severe THROAT Verified 11/12/24 12:00 ITCHING, throat irritation Iodinated Contrast Media Allergy Severe HIVES/VOMIT Verified 11/12/24 12:00 [IODINATED CONTRAST MEDIA - ING IV DYE] benazepril Allergy Intermediate angioedema Verified 11/12/24 12:00 celecoxib [Celebrex] Allergy Intermediate hives Verified 11/12/24 12:00 atorvastatin AdvReac Severe severe GI Verified 11/12/24 12:00 side effects all nsaids (leave per Allergy Intermediate renal Uncoded 11/12/24 12:00 Gisela) iodine Allergy Intermediate vomiting Uncoded 11/12/24 12:00 Home Medications ?Medication ?Instructions ?Recorded ?Confirmed ?Last Taken ?Type aspirin 81 mg tablet,delayed 81 mg PO DAILY 02/10/21 11/12/24 11/11/24 History release carvedilol 12.5 mg tablet 12.5 mg PO BID 02/10/21 11/12/24 11/12/24 History losartan 100 mg tablet 100 mg PO DAILY 02/10/21 11/12/24 Unknown History metformin 500 mg tablet,extended 500 mg PO BID 02/10/21 11/12/24 Unknown History release 24 hr rosuvastatin 20 mg tablet 20 mg PO DAILY 02/10/21 11/12/24 Unknown History empagliflozin 25 mg tablet 25 mg PO DAILY 08/07/21 11/12/24 11/06/24 History (Jardiance) cholecalciferol (vitamin D3) 50 50 mcg PO DAILY 12/02/21 11/12/24 Unknown History mcg (2,000 unit) capsule vitamin B complex (B 1 tab PO DAILY 12/02/21 11/12/24 Unknown History Complex-Vitamin B12 tablet) felodipine 5 mg tablet,extended 5 mg PO DAILY 07/31/24 11/12/24 Unknown History release 24 hr Exam Airway Mallampati Class: II TM Dist: >3cm Neck ROM: Full Assessment and Plan Assessment Anesthesia Assessment: Anesthesia Plan Discussed Final Anesthetic Review Family History of Problems with Anesthesia: No NPO: Yes ASA Class: III Final Preanesthetic Review: No Changes in Pt Med Stat, Meds/Allgs Chart Reviewed, Consent Obtained/Reviewed and Anes Risks/Benef Reviewed Patient Risk: Intermediate Procedure Risk: Low Anesthetic Plan Anesthetic Plan: TIVA Disposition: Standard PACU
[2024-11-12] MEDS: Lactated Ringers 1,000 ML 100 ML IVCONT (12:08)
[2024-11-12 12:22] VITALS: BP 157/74; PULSE 59; RESP 18; TEMP 36.6; O2SAT 97
[2024-11-12 12:23] VITALS: BMI 36.0
--- NOTE | 2024-11-12 12:23 | MHC.SHP ---
Pre-Procedural Eval Section A - 24 Hr Update-Section A only Date of Service: 11/12/24 The patient is an INPATIENT: No The patient has been examined within 24 hours of the surgical procedure. The History & Physical has been completed within 30 days and I have reviewed it.: No Section B - Complete if H&P > 30 days Chief Complaint: Crohn's disease, unspecified, without complication Relevant Family History (Specify if Yes): No Relevant Social History: Tobacco Use (Former smoker) Present Medications: see Short Stay Collaborative assessment Medical History: Significant History (History of COVID-19 History of heart attack Crohn's disease Goiter Multiple sclerosis Annual physical exam Adrenal mass HTN (hypertension) Hyperlipidemia NSTEMI (non-ST elevated myocardial infarction) DM type 2 (diabetes mellitus, type 2)) History of Previous Operations: Relevant previous surgery/procedure and date(s) (H/O colonoscopy History of esophagogastroduodenoscopy (EGD)) Allergies: Allergies Allergy/AdvReac Type Severity Reaction Status Date / Time KARIN Inhibitors Allergy Severe LIP Verified 11/12/24 12:00 [KARIN INHIBITORS] SWELLING amoxicillin [AMOXICILLIN] Allergy Severe THROAT Verified 11/12/24 12:00 ITCHING, throat irritation Iodinated Contrast Media Allergy Severe HIVES/VOMIT Verified 11/12/24 12:00 [IODINATED CONTRAST MEDIA - ING IV DYE] benazepril Allergy Intermediate angioedema Verified 11/12/24 12:00 celecoxib [Celebrex] Allergy Intermediate hives Verified 11/12/24 12:00 atorvastatin AdvReac Severe severe GI Verified 11/12/24 12:00 side effects all nsaids (leave per Allergy Intermediate renal Uncoded 11/12/24 12:00 Gisela) iodine Allergy Intermediate vomiting Uncoded 11/12/24 12:00 Review of Systems Sugical H&P ROS: Negative: Constitution, Cardiovascular, Respiratory and Gastrointestinal Exam Surgical H&P Exam: Normal: Heart, Normal: Lungs, Normal: Extremities and Normal: Abdomen Plan Diagnosis/Plan: Unchanged I have reviewed the history and physical and performed a pertinent physical examination on my patient. No changes have occurred unless specified. Time Spent With Patient Time: Total time managing care of this patient today ____ minutes.
[2024-11-12 12:24] LABS: Glucose, Whole Blood 128 mg/dL (60-115)
--- NOTE | 2024-11-12 14:20 | HO.OPN-COLON ---
Colonoscopy Operative Note Operative Note Date of Service: 11/12/24 Narrative: COLONOSCOPY TILL CECUM WITH BIOPSIES, SNARE POLYPECTOMY AND CHROMOENDOSCOPY Pre-operative diagnosis: : Crohn's disease, unspecified, without complication Post-operative Diagnosis: : Inactive Crohn's disease, diverticulosis Consent: Indications for the procedure and potential complications of bleeding, perforation, reaction to medications and missed diagnosis were discussed with the patient and informed consent was obtained. Instrument: Olympus PCF H 190 L variable stiffness pediatric colonoscope Monitoring: Vital signs and clinical assessment, intermittent blood pressure monitoring, continuous EKG monitoring, Pulse oximetry and Carbon Dioxide monitoring were done throughout the procedure. Colon withdrawl time was 20 minutes. Procedure: The patient was placed in the left lateral decubitis position and pre-procedure medications were administered. After a digital rectal examination of the ano-rectum, the video colonoscope was inserted into the rectum and advanced through the colon to the cecum. The colonoscope was slowly withdrawn in a retrograde panoramic fashion and the colon mucosa was carefully examined using chromoendoscopy with methylene blue (50 mg diluted in 240 ml)? including a retroflexed view of the rectum. Findings and interventions are described below. Procedure Difficulty: Without difficulty Findings:? Note: Chromoendoscopy with methylene blue was used to examine the colonic mucosa Terminal Ileum: Distal 5-6 cm was examined and appeared normal Cecum:? Normal Ascending Colon:? Normal Transverse Colon:? Normal Descending Colon:? Normal Sigmoid Colon:? A 9 -10 mm sessile polyp removed with a cold snare. Mild diverticulosis Rectum:? A 7-8 mm sessile polyp - removed with a cold snare. Ano-rectum:? Normal Colon preparation: Good after some irrigation. [place] Bowel Preparation Scale Right colon; 2 Transverse colon: 2 Left colon; 2 (0 = Unprepared colon segment with mucosa not seen due to solid stool that cannot be cleared. 1 = Portion of mucosa of the colon segment seen, but other areas of the colon segment not well seen due to staining, residual stool and/or opaque liquid. 2 = Minor amount of residual staining, small fragments of stool and/or opaque liquid, but mucosa of colon segment seen well. 3 = Entire mucosa of colon segment seen well with no residual staining, small fragments of stool or opaque liquid) Impression and Post Procedure Diagnosis: Colonoscopy Findings: Two small polyps removed Mild diverticulosis seen in the sigmoid colon Plan: Pt to schedule a FU appointment with Kandy Demarco NP Repeat Colonoscopy in 3 years if polyps are adenomatous and dysplasia on colon biopsies Above findings were reviewed with the patient and relevant handouts were given and the discharge area. BIOPSIES SHOWED: A. Cecum, biopsy: Colonic mucosa within normal limits; negative for active colitis/granuloma/dysplasia. B. Colon, ascending, biopsy: Colonic mucosa within normal limits; negative for active colitis/granuloma/ dysplasia. C. Colon, transverse, biopsy: Colonic mucosa within normal limits; negative for active colitis/granuloma/ dysplasia. D. Colon, sigmoid at 40cm, polypectomy: Fragments of hyperplastic polyp; negative for dysplasia. E. Colon, sigmoid, biopsy: Colonic mucosa within normal limits; negative for active colitis/granuloma/dysplasia. F. Colon, rectum, biopsy: Colonic mucosa within normal limits; negative for active colitis/granuloma/dysplasia. G. Rectum, polypectomy: Hyperplastic polyp; negative for dysplasia Letter sent to the patient with biopsy results. Patient was placed on the colonoscopy recall list for repeat colonoscopy in 3 years.
[2024-11-12 14:25] VITALS: BP 126/66; PULSE 68; RESP 15; TEMP 36.6; O2SAT 94
[2024-11-12 14:40] VITALS: BP 145/70; PULSE 58; RESP 16; O2SAT 95
[2024-11-12 14:51] VITALS: BP 156/76; PULSE 64; RESP 18; TEMP 36.2; O2SAT 96
== END 2024-11-12 15:48 | disposition home or self-care (01) ==
PROVIDERS: PCP Internal Medicine; Visit Provider Internal Medicine Gastroenterology
PROC: 0DJD8ZZ Inspection of Lower Intestinal Tract, Via Natural or Artificial Opening Endoscopic (ICD-10-PCS; CPT 45378; principal; 2024-11-12 13:00)
DX: Z12.11 Encounter for screening for malignant neoplasm of colon (principal); Z86.0101 Personal history of adenomatous and serrated colon polyps; K50.90 Crohn's disease, unspecified, without complications; K63.5 Polyp of colon; K62.1 Rectal polyp; K57.30 Diverticulosis of large intestine without perforation or abscess without bleeding; G35 Multiple sclerosis; I10 Essential (primary) hypertension; E78.5 Hyperlipidemia, unspecified; I25.10 Atherosclerotic heart disease of native coronary artery without angina pectoris; Z95.5 Presence of coronary angioplasty implant and graft; I25.2 Old myocardial infarction; E27.9 Disorder of adrenal gland, unspecified; E11.9 Type 2 diabetes mellitus without complications; Z79.82 Long term (current) use of aspirin; Z79.84 Long term (current) use of oral hypoglycemic drugs; Z79.899 Other long term (current) drug therapy; Z88.1 Allergy status to other antibiotic agents; Z88.6 Allergy status to analgesic agent; Z88.8 Allergy status to other drugs, medicaments and biological substances; Z91.041 Radiographic dye allergy status; Z87.891 Personal history of nicotine dependence; Z98.890 Other specified postprocedural states
CPT/HCPCS: 45385; 45380; 82947; 88305; J2003; J2704; Q9968

== ENCOUNTER → 2024-11-12 11:35 | Outpatient (BNV) | payer OTHER, SELFPAY | PROVIDERS: PCP Internal Medicine; Visit Provider Internal Medicine Gastroenterology | DX: K50.90 Crohn's disease, unspecified, without complications (principal); D12.5 Benign neoplasm of sigmoid colon; D12.8 Benign neoplasm of rectum; K57.30 Diverticulosis of large intestine without perforation or abscess without bleeding | CPT/HCPCS: 45385; 45399 ==

== ENCOUNTER 2024-11-23 09:59 | Outpatient (REF) | payer OTHER, SELFPAY ==
--- NOTE | ~2024-11-23 | MM_ITS ---
EXAMINATION: MM SCREENING DIGITAL BREAST TOMOSYNTHESIS, BILATERAL CLINICAL INFORMATION: Screening. Asymptomatic. COMPARISON: Mammography: Comparison is made with available priors TECHNIQUE: Digital breast mammography with tomosynthesis is performed in both the craniocaudal and mediolateral oblique views along with computer-aided detection (CAD). FINDINGS: There are scattered areas of fibroglandular density (ACR BI-RADS breast composition Category b). Mole superior right breast MLO view stable. There are no significant masses, abnormal calcifications, or other abnormalities. MM/MM tomosynthesis screening BI IMPRESSION: No mammographic evidence of malignancy. ASSESSMENT: BI-RADS BI-RADS 2 - Benign Findings RECOMMENDATION: Routine annual mammography screening. 1 year F/U This examination should not preclude the clinical evaluation of a suspicious palpable abnormality. This patient's information was entered into a reminder system with a target due date for their next mammogram. Electronically signed by: Roxie Cavazos DO 11/29/2024 12:57 PM EDT
--- OUTSIDE RECORDS SUMMARY | 2024-11-23 10:16 | XMS_ITS | Patient Health Record ---
[facility] Address [address] [address] Care Team Providers Care Library Media Technician Name Role Phone Liz Dhaliwal MD Primary Care Provider Tim Fontanez Unavailable [phone] Allergies Allergen (clinical drug ingredient) Drug/Non Drug Allergy documented on EMR Reaction Allergy Type Onset Date Status narcotics (uncoded) Vomiting, itchy Allergy Active celecoxib CeleBREX hives Drug Allergy Active Merthiolate hives Drug Allergy Activ e amoxicillin Amoxicillin throat itchy Drug Allergy Active [...] Status Risk Notes Problem Acquired hallux valgus (27187172) Hallux valgus (acquired), right foot (M20.11) Active confirmed Problem Acquired hallux rigidus (7699826) Hallux rigidus, left foot (M20.22) Active confirmed Problem Type 2 diabetes mellitus with diabetic polyneuropathy (E11.42) Active confirmed Plan Of Treatment Pending Test Test Name Order Date X ray : Foot, left 3V 03/11/2022 X ray : Foot, right 3V 03/11/2022 Insurance Providers Payer Name Payer Address Payer Phone Subscriber Number Group Number Insured Name Patient Relationship to Insured Coverage Start Date Coverage End Date [facility] [address] [place] [phone] [id number] Mayra Lou Self - patient is the insured Medical (General) History Medical History History ICD Code Anemia Arthritis Back,Hip,and Knee pain Broken bones Cholesterol covid-19 Crohns disease Diabetic Gall bladder problems Heart disease High blood pressure Kidney disease Multiple sclerosis Neuropathy Sickle cell trait chronic sinusitis thyroid Bone implants/screws Mumps Chicken pox Surgical History Surgery Date(Month/Year) knee replacement x2 2012,2014 Stent x2 gall bladder 1988 hysterectomy 2006
== END 2024-11-23 10:00 | disposition home or self-care (01) ==
LOC: HO.MAMMO 09:59
PROVIDERS: PCP Internal Medicine; Visit Provider Internal Medicine
DX: Z12.31 Encounter for screening mammogram for malignant neoplasm of breast (principal)
CPT/HCPCS: 77063; 77067

== ENCOUNTER → 2024-11-23 10:00 | Outpatient (BNV) | payer OTHER, SELFPAY | PROVIDERS: PCP Internal Medicine; Visit Provider Internal Medicine | DX: Z12.31 Encounter for screening mammogram for malignant neoplasm of breast (principal) | CPT/HCPCS: 77063; 77067 ==

== ENCOUNTER 2024-11-24 11:03 | Outpatient (AMB) | payer OTHER, SELFPAY ==
[2024-11-24 11:04] VITALS: BP 110/64; PULSE 76; RESP 16; TEMP 37.1; O2SAT 96; BMI 35.5
--- NOTE | 2024-11-24 11:04 | MHC.OFFWIV ---
Intake Vital Signs 11/24/24 11:04 Height 5 ft 1 in Weight 188 lb BMI 35.5 BP 110/64 Blood Pressure Location Rt brachial Position Sitting Respiration 16 Pulse 76 Pulse Source Pulse Oximeter Temp 98.7 F Temp Source Oral Pulse Oximetry (%) 96 Oxygen Delivery Method Room Air Intake Visit Reasons: EP-B/L eyes itching and redness Intake Note: Pt is here today c/o bilateral eyes itching and redness x1day coughing up pheglm x4days Patient Tobacco Use Status: Former Tobacco user Allergies KARIN Inhibitors (KARIN INHIBITORS) Allergy (Severe, Verified 11/24/24 11:05) LIP SWELLING amoxicillin (AMOXICILLIN) Allergy (Severe, Verified 11/24/24 11:05) THROAT ITCHING, throat irritation Iodinated Contrast Media (IODINATED CONTRAST MEDIA - IV DYE) Allergy (Severe, Verified 11/24/24 11:05) HIVES/VOMITING benazepril Allergy (Intermediate, Verified 11/24/24 11:05) angioedema celecoxib (Celebrex) Allergy (Intermediate, Verified 11/24/24 11:05) hives atorvastatin Adverse Reaction (Severe, Verified 11/24/24 11:05) severe GI side effects all nsaids (leave per Gisela) Allergy (Intermediate, Uncoded 11/24/24 11:05) renal iodine Allergy (Intermediate, Uncoded 11/24/24 11:05) vomiting HPI HPI Comments History of Present Illness Details Mayra presents with a cough and eye redness that began 3 days ago. The cough started on Tuesday and has been persistent, occurring both day and night. It is described as an expectorant cough, producing thick, yellowish-green mucus. The cough was worse on the first night. On , Mayra noticed redness in the corner of one eye, which has since spread to encompass the entire eye with a pinkish-red appearance. Both eyes are now itchy, but one eye is particularly affected, feeling stuck and requiring warm compresses to clean in the middle of the night. This eye also experiences tearing and occasional bleeding. Mayra reports that yesterday it felt like something was stuck under her eyelid, but this sensation has since improved. Mayra denies fever, chills, or vision issues, except when the affected eye is stuck together. She is not a contact lens wearer or a smoker, and she does not have a history of eczema. The eye symptoms and persistent cough have prompted her to seek medical attention as they are not improving. [facility] Medical History History of COVID-19 History of heart attack Crohn's disease Goiter Multiple sclerosis Annual physical exam Adrenal mass HTN (hypertension) Hyperlipidemia NSTEMI (non-ST elevated myocardial infarction) DM type 2 (diabetes mellitus, type 2) Weakness Surgical History H/O colonoscopy (10/26/21) History of esophagogastroduodenoscopy (EGD) Family History Mother Lung cancer Diabetes Heart disease Sister Diabetes HTN (hypertension) Sister Family history of thyroid problem HTN (hypertension) Social History Household Members Other:: sister and niece [facility] Are you a primary healthcare project manager to a significant other at home: No Do you presently have visiting nurse or other home services: No Patient Tobacco Use Status: Former Tobacco user Tobacco use type: Cigarette e-Cigarette/Vaping Use: Never Used Current occupational status: employed 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 [employer] Cognitive needs: No Hearing needs: No Vision needs: Yes Physical Exam Vital Signs: Last Vital Signs Temp 98.7 F 11/24/24 11:04 Pulse 76 11/24/24 11:04 Resp 16 11/24/24 11:04 BP 110/64 11/24/24 11:04 Pulse Ox 96 11/24/24 11:04 Oxygen Delivery Method Room Air 11/24/24 11:04 BMI result Body Mass Index 35.5 Const General: cooperative, no acute distress and alert Orientation/consciousness: patient oriented x3 Limitations: no limitations HEENT Head: Yes normal to inspection Ears: hearing grossly normal bilaterally and external ears normal General nose exam: Normal external nose present Eyes Conjunctivae: conjunctival abnormal right Neck Neck: Yes normal visual inspection Chest Chest palpation & inspection: normal inspection of the chest Resp Effort & Inspection: normal respiratory effort, able to speak in complete sentences and no audible wheezes Auscultation: rhonchi Cardio Rate: regular rate Rhythm: regular rhythm GI Inspection: Yes normal to inspection Palpation (GI): Soft to palpation and nontender Skin General skin exam: no rashes or lesions noted Neuro General: patient oriented x3 Psych Appearance: grossly normal Mental Status: mental status grossly normal Speech and movement: Normal speech and movement present Affect: normal affect Attitude: cooperative Thought process: Normal thought process present Thought content: Normal thought content present Assessment & Plan Assessment & Plan (1) Conjunctivitis: Code(s): H10.9 - Unspecified conjunctivitis Qualifiers: Conjunctivitis type: acute Acute conjunctivitis type: unspecified Laterality: right Qualified Code(s): H10.31 - Unspecified acute conjunctivitis, right eye Plan: Yesterday, developed unilateral eye redness, progressing to bilateral eye involvement with itching, tearing, and discharge - Eye symptoms more pronounced in one eye, with stuck eyelids upon waking - No fever or chills reported - Presentation most consistent with a viral process, though bacterial conjunctivitis cannot be definitively ruled out based on the unilateral onset and eye discharge plan - Prescribe ofloxacin or Polytrim eye drops: 1 drop in each eye every 4 hours while awake, for a total of 6 drops per day, for 7 days (2) URI (upper respiratory infection): Code(s): J06.9 - Acute upper respiratory infection, unspecified Qualifiers: URI type: unspecified URI Qualified Code(s): J06.9 - Acute upper respiratory infection, unspecified Plan: Upper Respiratory Infection with Conjunctivitis: - Patient presents with symptoms consistent with an upper respiratory infection, - Symptoms began 3 days ago with a persistent, expectorant cough producing thick, yellow-green sputum Plan: - lauren portillo - Instruct patient to wait until Tuesday morning to start the antibiotic if symptoms are not improving - Follow up if symptoms worsen or do not improve Medications: New polymyxin B sulf-trimethoprim 10,000 unit- 1 mg/mL while awake; do not exceed 6 doses in 24 hours 1 drp ophthalmic (eye) Q3H 10 mL 0RF 7 days H10.9 - Unspecified conjunctivitis azithromycin start on day 2 of therapy 250 mg PO DAILY 6 tabs 0RF 6 days benzonatate 100 mg PO BID-TID PRN 20 caps 0RF cough Coding Level of Care Code Est Pt Level 4 (38355) Diagnoses Acute conjunctivitis of right eye, unspecified acute conjunctivitis type H10.31 Conjunctivitis type: acute Acute conjunctivitis type: unspecified Laterality: right Upper respiratory tract infection, unspecified type J06.9 URI type: unspecified URI
== END 2024-11-24 11:47 | disposition home or self-care (01) ==
LOC: HO.HMCWIC 11:03
PROVIDERS: PCP Internal Medicine; Visit Provider Physician Assistant
DX: H10.31 Unspecified acute conjunctivitis, right eye (principal); J06.9 Acute upper respiratory infection, unspecified

== ENCOUNTER → 2024-11-24 11:03 | Outpatient (BNVA) | payer OTHER, SELFPAY | PROVIDERS: PCP Internal Medicine; Visit Provider Physician Assistant ==

== ENCOUNTER 2025-05-08 14:04 | Outpatient (AMB) | payer OTHER, SELFPAY ==
[2025-05-08 14:12] VITALS: BP 136/70; PULSE 64; RESP 17; TEMP 36.7; O2SAT 97; BMI 36.3
--- NOTE | 2025-05-08 14:12 | A.OFFPC_ITS ---
Vital Signs 05/08/25 14:12 Height 5 ft 1 in Weight 192 lb BMI 36.3 BP 136/70 Blood Pressure Location Lt brachial Position Sitting Respiration 17 Pulse 64 Pulse Source Pulse Oximeter Temp 98.0 F Temp Source Oral Pulse Oximetry (%) 97 Oxygen Delivery Method Room Air Intake Visit Reasons: ER follow up Intake Note: Pt is here today for ER follow up visit. Allergies KARIN Inhibitors (KARIN INHIBITORS) Allergy (Severe, Verified 05/08/25 14:13) LIP SWELLING amoxicillin (AMOXICILLIN) Allergy (Severe, Verified 05/08/25 14:13) THROAT ITCHING, throat irritation Iodinated Contrast Media (IODINATED CONTRAST MEDIA - IV DYE) Allergy (Severe, Verified 05/08/25 14:13) HIVES/VOMITING benazepril Allergy (Intermediate, Verified 05/08/25 14:13) angioedema celecoxib (Celebrex) Allergy (Intermediate, Verified 05/08/25 14:13) hives atorvastatin Adverse Reaction (Severe, Verified 11/24/24 11:05) severe GI side effects all nsaids (leave per Gisela) Allergy (Intermediate, Uncoded 05/08/25 14:13) renal iodine Allergy (Intermediate, Uncoded 05/08/25 14:13) vomiting Medication List - Last Reconciled 05/08/25 by Liz Dhaliwal MD aspirin 81 mg PO DAILY carvedilol 12.5 mg PO BID cholecalciferol (vitamin D3) 50 mcg PO DAILY empagliflozin (Jardiance) 25 mg PO DAILY felodipine ER 5 mg PO DAILY losartan 100 mg PO DAILY metformin ER 500 mg PO BID rosuvastatin 20 mg PO DAILY vitamin B complex (B Complex-Vitamin B12 tablet) 1 tab PO DAILY Tobacco use date assessed: 05/08/25 Dental Screening Dental Screen Date: 05/08/25 Did you have a dental visit in the last 12 months?: Yes Did you have a dental problem in the last 6 months where you did not have access to dental care?: No Was dental information given to patient?: Patient has dentist HPI ER follow up HPI Details Patient presents for the follow-up of ER visit for nosebleed 2 weeks ago. The bleeding stopped spontaneously. Patient denies nasal congestion s neezing allergy or upper respiratory infection symptoms. Hypertension hyperlipidemia type 2 diabetes has been well controlled on current medications. Patient is established with machinist apprentice Dr. Amos who has been managing her diabetes. Patient has not been monitoring his blood glucose regularly but has been following ADA diet and reports her last A1c less than 7. Patient is established with the Cardiology for history of SD and has been taking aspirin and high dose of statin. [facility] Medical History (Updated 05/08/25 @ 14:44 by Liz Dhaliwal MD) History of COVID-19 History of heart attack Crohn's disease Goiter Multiple sclerosis Annual physical exam Adrenal mass HTN (hypertension) Hyperlipidemia NSTEMI (non-ST elevated myocardial infarction) DM type 2 (diabetes mellitus, type 2) Weakness Surgical History H/O colonoscopy (10/26/21) History of esophagogastroduodenoscopy (EGD) Family History Mother Lung cancer Diabetes Heart disease Sister Diabetes HTN (hypertension) Sister Family history of thyroid problem HTN (hypertension) Social History Household Members Other:: sister and niece Housing: Condominium Housing Other:: [facility] Are you a primary career and guidance counselor to a significant other at home: No Do you presently have visiting nurse or other home services: No Patient Tobacco Use Status: Former Tobacco user Tobacco use type: Cigarette e-Cigarette/Vaping Use: Never Used service: No Current occupational status: employed 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 1. Little interest or pleasure in doing things: not at all 2. Feeling down, depressed, or hopeless: not at all 3. Trouble falling or staying asleep, or sleeping too much: not at all 4. Feeling tired or having little energy: not at all 5. Poor appetite or overeating: not at all 6. Feeling bad about yourself - or that you are a failure or have let yourself or your family down: not at all 7. Trouble concentrating on things, such as reading the newspaper or watching television: not at all 8. Moving or speaking so slowly that other people could have noticed. Or the opposite - being so fidgety or restless that you have been moving around a lot more than usual: not at all 9. Thoughts that you would be better off or of hurting yourself in some way: not at all Total score: 0 Depression Screening Interpretation: Negative Depression Screening Done: Yes 09231 - PHQ-9 Billing: Yes Source: Developed by Drs. Michael Simpson, Mikey Grigsby and colleagues, with an educational serge from [employer]. Thrive Questionnaire Date Thrive assessed: 11/03/22 AMY-7 AMB Questionnaire AMY-7 Date AMY - 7 assessed: 05/08/25 Feeling nervous, anxious, or on edge: 0 = Not at all Not being able to stop or control worryin = Not at all Worrying too much about different things: 0 = Not at all Trouble relaxin = Not at all Being so restless that it is hard to sit still: 0 = Not at all Becoming easily annoyed or irritable: 0 = Not at all Feeling afraid as if something awful might happen: 0 = Not at all Total AMY-7 score (0-4 normal; 5-9 mild; 10-14 moderate; 15-21 severe): 0 Source: Developed by Drs. Michael Simpson, Mikey Grigsby and colleagues, with an educational serge from [employer]. AMY-7 Assessment Billing AMY-7 Assessment Tool: AMY-7 Assessment 05351 Review of Systems Const All systems reviewed & are unremarkable except as noted in HPI and below Eyes Reports no additional complaints Card Reports no additional complaints Resp Reports no additional complaints GI Reports no additional complaints Reports no additional complaints Physical exam (Primary Care) Vital Signs: Last Vital Signs Temp 98.0 F 05/08/25 14:12 Pulse 64 05/08/25 14:12 Resp 17 05/08/25 14:12 BP 136/70 05/08/25 14:12 Pulse Ox 97 05/08/25 14:12 Oxygen Delivery Method Room Air 05/08/25 14:12 BMI result Body Mass Index 36.3 Tobacco/Smoking Status: Tobacco use Status Tobacco use date assessed 05/08/25 05/08/25 14:20 Patient Tobacco Use Status Former Tobacco user 05/08/25 14:20 Tobacco use type Cigarette 05/08/25 14:20 e-Cigarette/Vaping Use Never Used 05/08/25 14:20 PHQ-9: PHQ-9 Score PHQ-9: Total score 0 05/08/25 14:20 Depression Screening Interpretation: Negative Thrive Assessment: Date of Thrive Assessment Date Thrive assessed 11/03/22 05/08/25 14:20 Const General: no acute distress HENMT Head: Yes normal to inspection Ears: TM's normal bilaterally General nose exam: Normal external nose present and Normal nasal mucous membranes and turbinates present Face and sinus: Yes normal facial exam Mouth: Normal oral and palatal mucosa present Throat: Yes posterior oropharynx normal Eyes General: appearance normal, both eyes and all related structures Neck Neck: Yes no lymphadenopathy and Yes supple Resp Effort & Inspection: normal respiratory effort Auscultation: clear to auscultation bilaterally Cardio Rhythm: regular rhythm Heart sounds: S1 normal heart sound present and S2 normal heart sound present GI Inspection: Yes normal to inspection Coding Level of Care Code Est Pt Level 4 (68249) Diagnoses DM type 2 (diabetes mellitus, type 2) E11.9 NSTEMI (non-ST elevated myocardial infarction) I21.4 HTN (hypertension) I10 Adrenal mass E27.8 Epistaxis R04.0 Additional Codes AMY-7 Assessment Billing - AMY-7 Assessment Tool: AMY-7 Assessment 77860 ([id number]) PHQ-9 - 19038 - PHQ-9 Billing: Yes ([id number]) Assessment & Plan Assessment & Plan (1) DM type 2 (diabetes mellitus, type 2): Comment: microalbuminuria, f/u Dr. Amos q 6 months, last A1C 7.1 01/25, A1c 6.8 05/28 Code(s): E11.9 - Type 2 diabetes mellitus without complications Category: Medical Plan: ADA diet regular physical activity discussed with the patient. She will continue same medications. Patient had recent blood work by machinist apprentice in January and will obtain the copy of the results. She will return for physical and will have a fasting blood work before (2) NSTEMI (non-ST elevated myocardial infarction): Comment: s/p RCA stent in 2019, PVC, follow-up with Dr. Pritchard Code(s): I21.4 - Non-ST elevation (NSTEMI) myocardial infarction Category: Medical Plan: Follow-up with cardiology (3) HTN (hypertension): Code(s): I10 - Essential (primary) hypertension Category: Medical Plan: Continue current medications (4) Adrenal mass: Comment: ZABRINA, F/U ENDO Dr. Amos, stable CT 2020 Code(s): E27.8 - Other specified disorders of adrenal gland Category: Medical Plan: Follow-up with endocrinology (5) Epistaxis: Code(s): R04.0 - Epistaxis Category: Medical Plan: Supportive care discussed with the patient she was advised to use saline nasal spray and humidifier Orders: Orders Comprehensive Reserve. Panel Fast Today E11.9 - Type 2 diabetes mellitus without complications, E27.8 - Other specified disorders of adrenal gland, I10 - Essential (primary) hypertension, I21.4 - Non-ST elevation (NSTEMI) myocardial infarction Complete Blood Count Auto Diff Today E11.9 - Type 2 diabetes mellitus without complications, E27.8 - Other specified disorders of adrenal gland, I10 - Essential (primary) hypertension, I21.4 - Non-ST elevation (NSTEMI) myocardial infarction Hemoglobin A1c Today E11.9 - Type 2 diabetes mellitus without complications, E27.8 - Other specified disorders of adrenal gland, I10 - Essential (primary) hypertension, I21.4 - Non-ST elevation (NSTEMI) myocardial infarction Lipid Panel Today E11.9 - Type 2 diabetes mellitus without complications, E27.8 - Other specified disorders of adrenal gland, I10 - Essential (primary) hypertension, I21.4 - Non-ST elevation (NSTEMI) myocardial infarction TSH reflex Free T4 Today E11.9 - Type 2 diabetes mellitus without complications, E27.8 - Other specified disorders of adrenal gland, I10 - Essential (primary) hypertension, I21.4 - Non-ST elevation (NSTEMI) myocardial infarction Microalbumin, Random (w Creat) Today E11.9 - Type 2 diabetes mellitus without complications, E27.8 - Other specified disorders of adrenal gland, I10 - Essential (primary) hypertension, I21.4 - Non-ST elevation (NSTEMI) myocardial infarction UA w Microscopic Today E11.9 - Type 2 diabetes mellitus without complications, E27.8 - Other specified disorders of adrenal gland, I10 - Essential (primary) hypertension, I21.4 - Non-ST elevation (NSTEMI) myocardial infarction
--- OUTSIDE RECORDS SUMMARY | 2025-05-08 16:57 | XMS_ITS | Clinical Summary ---
Author Organization [facility] Address [address] [facility] [address] [place] [address] Phone Care Team Providers Care Member Service Representative Name Role Phone Liz Dhaliwal MD Primary Care Provider [phone] Eugenia Yap MD Unavailable [phone] Allergies Active Allergy Reactions Criticality Noted Date Comments Amoxicillin Other (See Comments) 11/21/2012 throat itching Medications canagliflozin (INVOKANA) 100 mg tablet Take 100 mg by mouth daily. Active atenolol (TENORMIN) 50 MG tablet Take 50 mg by mouth daily. Active amLODIPine (NORVASC) 5 MG tablet Take 5 mg by mouth daily. Active ascorbic acid (VITAMIN C) 500 MG tablet Take 500 mg by mouth daily. Active therapeutic multivitamin tablet Take 1 tablet by mouth daily. Active b complex vitamins capsule Take 1 capsule by mouth daily. Active losartan (COZAAR) 25 MG tablet Take 100 mg by mouth daily. Active felodipine (PLENDIL) 10 MG 24 hr tablet Take 10 mg by mouth daily. Active cholecalciferol (VITAMIN D3) 5,000 unit capsule Take 5,000 Units by mouth daily. Active metFORMIN (GLUCOPHAGE) 500 MG tablet Take 500 mg by mouth 2 (two) times a day with meals. Active aspirin 81 mg chewable tablet Take 81 mg by mouth daily. Active magnesium oxide 250 mg (150 mg elemental) Tab Take 250 mg by mouth daily. Active carvedilol (COREG) 12.5 MG tablet Take 12.5 mg by mouth 2 (two) times a day with meals. 3 Active rosuvastatin (CRESTOR) 20 MG tablet Take 1 tablet by mouth every morning. 3 Active JARDIANCE 25 mg tablet Take 25 mg by mouth every morning. 3 Active Active Problems Problem Noted Date Diagnosed Date Encounter for gynecological examination with abnormal finding 06/07/2023 Vaginal discharge 06/07/2023 Assessment & Plan (06/07/2023 4:44 PM EST): Thick/white discharge noted in vaginal vault Wet prep + yeast, negative clue cells, negative trichomonas Rx for Diflucan sent Encounters Date Type Department Care Team Description 02/22/2025 8:30 AM EDT Telemedicine - audio only [facility] Thoracic Surgery [address] [facility], 7th [place] [address] Eugenia Yap MD Solitary pulmonary nodule (Primary Dx) from Last 3 Months Family History Medical History Relation Comments Cancer Brother 2 Heart disease Maternal Grandfather Lung cancer Mother Other Sister 1 homicide Other Sister 2 covid Multiple sclerosis Neg Hx Relation Status Comments Brother 1 Alive Brother 2 Father Maternal Grandfather Maternal Grandmother Mother Sister 1 Sister 2 Sister 3 Alive Social History Tobacco Use Types Packs/Day Years Used Date Smoking Tobacco: Former Smokeless Tobacco: Never Tobacco Cessation:Counseling Given: Not Answered Alcohol Use Standard Drinks/Week Comments Yes 0 (1 standard drink = 0.6 oz pur e alcohol) 1-2 weekly Education Answer Date Recorded Are you interested in more education? Not on sergio e 10/09/2022 Are you concerned about learning? Not on file 10/09/2022 No 10/09/2022 No 10/09/2022 Digital Access Answer Date Recorded No 10/29/2022 No 10/29/2022 Reliable internet access at home? Not on file 10/29/2022 Device with a working camera? Not on file Comments No Sex and Gender Information Value Date Recorded Sex Assigned at Not on file Legal Sex Female 5:43 PM EST Gender Identity Not on file Sexual Orientation Not on file Last Filed Vital Signs Vital Sign Reading Time Taken Comments Blood Pressure 118/74 06/07/2023 2:07 PM EST Pulse 60 03/12/2021 10:33 AM EDT Temperature 36.5 C (97.7 F) 03/12/2021 10:33 AM EDT Respiratory Rate - - Oxygen Saturation 98% 03/12/2021 10:33 AM EDT Inhaled Oxygen Concentration - - Weight 87.5 kg (193 lb) 06/07/2023 2:07 PM EST Height 154.9 cm (5' 1 ) 06/07/2023 2:07 PM EST Body Mass Index 36.47 06/07/2023 2:07 PM EST Plan of Treatment Health Maintenance Due Date Last Done Comments POTASSIUM LEVEL 1962 DEPRESSION SCREENING 1974 SMOKING Hx and SMOKELESS TOBACCO SCREENING 09/15/1975 HEPATITIS C SCREENING 1980 HIV ONE-TIME SCREENING (18-65 YEARS) 1980 PAP SMEAR 09/15/1983 SCREENING FOR DIABETES 1997 MAMMOGRAM 2002 COLOGUARD 09/15/2007 COLONOSCOPY 09/15/2007 COLORECTAL CANCER SCREENING 09/15/2007 FIT TEST 09/15/2007 FOBT 09/15/2007 SIGMOIDOSCOPY 09/15/2007 VIRTUAL COLONOSCOPY 09/15/2007 RSV VACCINE (1 - Risk 50-74 years 1-dose series) 2012 ZOSTER VACCINES (1 of 2) 2012 LIPID PANEL 06/11/2018 06/11/2013 CREATININE LEVEL 10/27/2018 10/27/2017 INFLUENZA VACCINE (#1) 2025 , 05/09/2020, 04/15/2020, Additional history exists COVID-19 VACCINE ( season) 2025 10/22/2021, 05/20/2021, 08/25/2020, Additional history exists Adult Td,Tdap Booster 06/26/2028 06/26/2018 , 03/26/2008, 01/12/2008 PNEUMOCOCCAL VACCINES (50+ years) Completed 11/08/2022, 04/17/2002 HEPATITIS A VACCINES Aged Out No long er eligible based on patient's age to complete this topic HIB VACCINES Aged Out No longer eligi ble based on patient's age to complete this topic MENINGOCOCCAL VACCINES (ACWY) Aged Out No longer eligible based on patient's age to complete this topic MENINGOCOCCAL VACCINES (B) Aged Out N o longer eligible based on patient's age to complete this topic Medical Devices Not on file Procedures Procedure Name Priority Date/Time Associated Diagnosis Comments POCT CREATININE/EGFR Routine 10/27/2017 10:09 AM EDT from Last 3 Months or Most Recently Relevant to Health Maintenance Results * POCT Creatinine/eGFR (10/27/2017 10:09 AM EDT) [facility] CRE POC 0.8 0.5 - 1.2 mg/dL JV EGFR POC 83 >59 mL/min/1.7 3m2 [facility] Comment:If patient is black, multiply result by 1.159. Estimated glomerular filtration rate calculated using the CKD-EPI equation. 10/27/2017 10:0 9 AM EDT 10/27/2017 10:11 AM EDT Jackson Farrar MD POINT OF CARE TEST ORDERABLES Final Result [facility] from Last 3 Months or Most Recently Relevant to Health Maintenance Insurance [facility] EXPLORER POS Care Teams Member Service Representative Relationship Specialty Start Date End Date Liz Dhaliwal MD 1959 [facility] [place] [address] PCP - General Internal Medicine 07/26/17 Eugenia Yap MD [address] [place] [address] [email or web address] Thoracic Surgery 02/22/25 Additional Source Comments The information contained in this document represents components of the legal health record. It is not the complete legal health record.[facility]
--- OUTSIDE RECORDS SUMMARY | 2025-05-08 16:57 | XMS_ITS | Patient Health Record ---
[facility] Address [address] [place] [address] Care Team Providers Care Cement Production Plant Operator Name Role Phone Liz Dhaliwal MD Primary Care Provider Tim Oneill Unavailable [phone] Allergies Allergen (clinical drug ingredient) Drug/Non Drug [...] MG 1 tablet Oral ly Once a day; Duration: 30 day(s) Active metFORMIN HCl 500 MG [...] Status Risk Notes Problem Acquired hallux valgus (40571063) Hallux valgus (acquired), right foot (M20.11) Active confirmed Problem Acquired hallux rigidus (9418941) Hallux rigidus, left foot (M20.22) Active confirmed Problem Polyneuropathy due to type 2 diabetes mellitus (123647317) Type 2 diabetes mellitus with diabetic polyneuropathy (E11.42) Active confirmed Plan Of Treatment Pending Test Test Name Order Date X ray : Foot, left 3V 03/11/2022 X ray : Foot, right 3V 03/11/2022 Insurance Providers Payer Name Payer Address Payer Phone Subscriber Number Group Number Insured Name Patient Relationship to Insured Coverage Start Date Coverage End Date [facility] [address] [place] [phone] [id number] Mayra Lou Self - patient is the [...]
--- OUTSIDE RECORDS SUMMARY | 2025-05-08 16:57 | XMS_ITS | Encounter Summary ---
Author Organization [facility] Address [address] [facility] [address] [place] [address] Phone Care Team Providers Care Assistant Professor Of Nursing Name Role Phone Liz Dhaliwal MD Primary Care Provider [phone] Eugenia Yap MD Unavailable [phone] Encounter Details Date Type Department Care Team (Late st Contact Info) Description 08/01/2017 Procedure Pass [facility] MR Imaging, Chance [address] [place] [address] Social History Tobacco Use Types Packs/Day Years Used Date Smoking Tobacco: Former Comments Unknown Sex and Gender Information Value Date Recorded Sex Assigned at Not on file Legal Sex Female 5:43 PM EST Gender Identity Not on file Sexual Orientation Not on file documented as of this encounter Plan of Treatment Not on file documented as of this encounter Visit Diagnoses Not on filedocumented in this encounter Care Teams Assistant Professor Of Nursing Relationship Specialty Start Date End Date Liz Dhaliwal MD [address] [place] [address] PCP - General Internal Medicine 07/26/17 Eugenia Yap MD [address] [place] [address] [place] [address] [email or web address] Thoracic Surgery 02/22/25 documented as of this encounter Additional Source Comments The information contained in this document represents components of the legal health record. It is not the complete legal health record.[facility]
--- OUTSIDE RECORDS SUMMARY | 2025-05-08 16:57 | XMS_ITS | Encounter Summary ---
Author Organization [facility] Address [address] [place] [address] Phone Care Team Providers Care Janitorial Assistant Name Role Phone Liz Dhaliwal MD Primary Care Provider [phone] Eugenia Yap MD Unavailable [phone] Encounter Details Date Type Department Care Team ([facility] Contact Info) Description 03/28/2024 Telephone VIRTUAL DEPARTMENT [address] [place] [phone] Eugenia Yap MD [address] [place] [address] [email or web address] [email or web address] BEDS AT THE [facility] Social History Tobacco Use Types Packs/Day Years Used Date Smoking Tobacco: Former Smokeless Tobacco: Never Alcohol Use Standard Drinks/Week [...] on filedocumented in this encounter Care Teams Janitorial Assistant Relationship Specialty Start Date End Date Liz Dhaliwal MD [address] [place] [address] PCP - General Internal Medicine 07/26/17 Eugenia Yap MD [address] [place] [address] [email or web address] BEDS AT THE [facility] Thoracic Surgery 02/22/25 documented as of this encounter Additional Source Comments The information contained in this document represents components of the legal health record. It is not the complete legal health record.[facility]
--- OUTSIDE RECORDS SUMMARY | 2025-05-08 16:57 | XMS_ITS | Encounter Summary ---
Author Organization [facility] Address [address] [facility] [address] [place] [address] Phone Care Team Providers Care Manager City Name Role Phone Liz Dhaliwal MD Primary Care Provider [phone] Eugenia Yap MD Unavailable [phone] Encounter Details Date Type Department Care Team ([facility] st Contact Info) Description 03/28/2024 Procedure Pass [facility] [place] [address] [facility], 6th [place] [address] Social History Tobacco Use Types Packs/Day Years [...] on filedocumented in this encounter Care Teams Manager City Relationship Specialty Start Date End Date Liz Dhaliwal MD [address] [place] [address] PCP - General Internal Medicine 07/26/17 Eugenia Yap MD [address] [place] [address] [email or web address] Thoracic Surgery 02/22/25 documented as of this encounter Additional Source Comments The information contained in this document represents components of the legal health record. It is not the complete legal health record.[facility]
--- OUTSIDE RECORDS SUMMARY | 2025-05-08 16:57 | XMS_ITS | Encounter Summary ---
Author Organization [facility] Address [address] [facility] [address] [place] [address] Phone Care Team Providers Care Aerospace Physiological Technician Name Role Phone Liz Dhaliwal MD Primary Care Provider [phone] Eugenia Yap MD Unavailable [phone] Encounter Details Date Type Department Care Team (Late st Contact Info) Description 08/01/2017 Procedure Pass [facility] MR Imaging, Chance [address] [place] [address] Social History Tobacco Use Types Packs/Day Years [...] on filedocumented in this encounter Care Teams Aerospace Physiological Technician Relationship Specialty Start Date End Date Liz Dhaliwal MD 1959 [place] [address] PCP - General Internal Medicine 07/26/17 Eugenia Yap MD [address] [place] [address] [place] [address] [email or web address] Thoracic Surgery 02/22/25 documented as of this encounter Additional Source Comments The information contained in this document represents components of the legal health record. It is not the complete legal health record.[facility]
--- OUTSIDE RECORDS SUMMARY | 2025-05-08 16:57 | XMS_ITS | Encounter Summary ---
Author Organization [facility] Address [address] [facility] [address] [place] [address] Phone Care Team Providers Care Combination Welder Name Role Phone Liz Dhaliwal MD Primary Care Provider [phone] Eugenia Yap MD Unavailable [phone] Encounter Details Date Type Department Care Team (Late st Contact Info) Description 08/01/2017 Procedure Pass [facility] MR Imaging, Chance [address] [place] [address] Social History Tobacco Use Types Packs/Day Years [...] on filedocumented in this encounter Care Teams Combination Welder Relationship Specialty Start Date End Date Liz Dhaliwal MD [address] [place] [address] PCP - General Internal Medicine 07/26/17 Eugenia Yap MD [address] [place] [address] [place] [address] [email or web address] Thoracic Surgery 02/22/25 documented as of this encounter Additional Source Comments The information contained in this document represents components of the legal health record. It is not the complete legal health record.[facility]
--- OUTSIDE RECORDS SUMMARY | 2025-05-08 16:57 | XMS_ITS | Encounter Summary ---
Author Organization [facility] Address [address] [facility] [address] [place] [address] Phone Care Team Providers Care Brush Clearing Laborer Name Role Phone Liz Dhaliwal MD Primary Care Provider [phone] Eugenia Yap MD Unavailable [phone] Encounter Details Date Type Department Care Team (Late st Contact Info) Description 07/10/2024 Procedure Pass [facility], [place] [address] [facility], 2nd [address], [address] [place] [address] Social History Tobacco Use Types Packs/Day Years [...] on filedocumented in this encounter Care Teams Brush Clearing Laborer Relationship Specialty Start Date End Date Liz Dhaliwal MD [address] [place] [address] PCP - General Internal Medicine 07/26/17 Eugenia Yap MD [address] [place] [phone] [email or web address] Thoracic Surgery 02/22/25 documented as of this encounter Additional Source Comments The information contained in this document represents components of the legal health record. It is not the complete legal health record.[facility]
--- OUTSIDE RECORDS SUMMARY | 2025-05-08 16:57 | XMS_ITS | Clinical Summary ---
Author Organization [facility] Address [address] [place] [address] Phone Care Team Providers Care Mechanical Equipment Test Engineer Name Role Phone Liz Dhaliwal MD Primary Care Provider [phone] Allergies Active Allergy Reactions Criticality Noted Date Comments Amoxicillin Trihydrate 09/29/2006 Amoxil Other Reaction(s): Numbness, tingling or swelling of the lips, tongue or mouth Benazepril Hcl Swelling 07/06/2006 Lip & face Celecoxib Swelling High 06/04/2013 Other Reaction(s): Hives/Urticaria Iodinated Contrast Media 05/19/2005 Other Reaction(s): Hives/Urticaria Medications VITAMIN B COMPLEX ORAL Take 1 Tablet by mouth. 3 times a week Active blood-glucose meter misc Check BS daily 06/05/2012 Active cholecalciferol (VITAMIN D-3) 5,000 Units tablet Take by mouth. 3 times a week Active empagliflozin (Jardiance) 25 mg tablet Take by mouth daily. Active metFORMIN (GLUCOPHAGE) 500 mg tablet Take 1 Tab by mouth 2 times daily (with meals). 06/11/2013 Active carvediloL (COREG) 12.5 mg tablet TAKE 1 TABLET BY MOUTH TWICE DAILY WITH MEALS 180 tablet 3 10/26/2024 Active felodipine (PLENDIL) 5 mg 24 hr tablet Take 1 tablet by mouth once daily 90 tablet 1 12/03/2024 Active aspirin 81 mg EC tablet Take 1 tablet by mouth once daily 90 tablet 3 02/01/2025 Active losartan (COZAAR) 100 mg tablet Take 1 tablet by mouth once daily 90 tablet 3 02/01/2025 Active rosuvastatin (CRESTOR) 20 mg tablet Take 1 tablet by mouth once daily 90 tablet 3 02/01/2025 Active Active Problems Problem Noted Date Diagnosed Date Preop cardiovascular exam 10/25/2024 Assessment & Plan (10/25/2024 11:40 AM EDT): Upcoming colonoscopy. Low risk from our standpoint. No preop testing recommended. Continue with aspirin, carvedilol and felodipine perioperatively. May interrupt empagliflozin. Coronary artery disease invo lving [place] coronary artery of [place] heart without angina pectoris 12/31/2020 Overview (10/25/2024): January 15, 2019 - angiogram in setting of unstable angina and NSTEMI which showed moderate diffuse disease of LM, LAD, LCX and RCA with 95% stenosis of ostial RPDA, 90% stenosis of 1st RPL and 80% stenosis of R PAV status post PCI with two KARINA to the RPDA January 16, 2019 echocardiogram showing preserved left ventricular systolic function LVEF 65 to 70% with normal wall thickness, no regional wall motion abnormalities, normal diastolic function, normal biatrial size, normal RV systolic function with hypokinesis of the basal right ventricular free wall, no hemodynamically significant valvular disease March 2019 - ETT with no ischemic EKGs and mild abnormality of exercise physiology Assessment & Plan (10/25/2024 11:40 AM EDT): Catheterization from 2019 showed distal RCA disease with moderate disease diffusely elsewhere. Last stress test showed no ischemia in 2019. Echocardiogram from 2019 showed preserved LV systolic function LVEF 65-70%. No anginal symptoms. Continue with aspirin, rosuvastatin, carvedilol, empagliflozin, felodipine, losartan. Will discontinue clopidogrel. We discussed risk reduction through lifestyle choices including healthy diet, routine exercise and weight management. Orders: ECG 12 lead Von Willebrand disease (CMS/HCC V24, CMS/HCC V28 ) 12/31/2020 Diabetes mellitus, type 2 (CMS/HCC V24, CMS/HCC V28) 02/18/2013 Overview (05/25/2024): Diabetes mellitus type 2, uncontrolled Hyperlipidemia 11/28/2012 Assessment & Plan (10/25/2024 11:40 AM EDT): Recent labs unavailable. Followed also by Dr. Amos. Continue with rosuvastatin. Recommended she get update lipid panel. Microalbuminuria 11/28/2012 Recurrent UTI 06/05/2012 Obesity 05/26/2011 Assessment & Plan (10/25/2024 11:40 AM EDT): BMI 35.30. We discussed risk reduction through lifestyle choices including healthy diet, routine exercise and weight management. Consider GLP1 injection. Vitamin D deficiency 12/15/2009 Goiter, nodular 02/09/2008 Overview (05/25/2024): 01/11; FNA 02/11: benign Abnormality of gait 03/10/2007 Pain in limb 03/10/2007 Cardiac murmur 06/04/2005 Assessment & Plan (10/25/2024 11:40 AM EDT): Soft early systolic murmur, longstanding per patient. Echocardiogram from 2019 showed no significant valvular abnormalities. No further work up at this time. Hypertension 05/19/2005 Assessment & Plan (10/25/2024 11:40 AM EDT): Elevated but initially and on recheck. May be related to current URI. Recommended she get blood pressure machine and check twice daily for two weeks and then call us with results. Continue with carvedilol, felodipine and losartan. 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 Overview (05/25/2024): IMO update Immunizations Immunization Administration Dates Next Due Influenza trivalent, 0.5mL, preservative free (Fluarix; FluLaval; Fluzone) ages 6mo and older (Afluria) 3 years and older 02/23/2013,03/23/2012,03/31/2011,05/12,05/09/2009,04/01/2008,04/06/2007 ,04/07/2005 Pneumococcal polysaccharide 23 valent (Pneumovax 23) 2yo and older 04/17/2002 Tdap Tetanus diptheria acell ular pertussis (Boostrix; Adacel) 7yo and older 01/12/2008 Surgical History Surgery Date Site/Laterality Comments CHOLECYSTECTOMY PROCEDURE: HISTORICAL CHOLECYSTECTOMY APPENDECTOMY PROCEDURE: HISTORICAL APPENDECTOMY COLONOSCOPY 08/20/03 PROCEDURE: RI COLONOSCOPY STOMA DX INCLUDING COLLJ SPEC SPX; COMMENT: Dr. Luu MAMMOGRAM ZABRINA 06/12 PROCEDURE: MAMMOGRAM, SCREENING, BOTH BREASTS; COMMENT: neg OTHER SURGICAL HISTORY 08/09 PROCEDURE: PAP SMEAR (1 SLIDE); COMMENT: Coretta; neg PARTIAL HYSTERECTOMY 11/07/06 PROCEDURE: RI SUPRACERVICAL ABDL HYSTER W/WO RMVL TUBE OVARY; COMMENT: Karlee; Midurethral sling OTHER SURGICAL HISTORY 12/06 PROCEDURE: RI CV STRS TST XERS&/OR RX CONT ECG W/SI&R; COMMENT: neg TONSILLECTOMY PROCEDURE: HISTORICAL TONSILLECTOMY HYSTERECTOMY 2006 PROCEDURE: HISTORICAL HYSTERECTOMY; COMMENT: partial vag fibroids KNEE ARTHROSCOPY 04/14 PROCEDURE: RI ARTHROSCOPY KNEE DIAGNOSTIC W/WO SYNOVIAL BX SPX; COMMENT: Desiraeand; Left TOTAL KNEE ARTHROPLASTY 05/18 PROCEDURE: RI ARTHRP KNE CONDYLE&PLATU MEDIAL&LAT COMPARTMENTS; COMMENT: Left Medical History Medical History Date Comments Regional enteritis of unspecified site 5 DX:Regional enteritis of unspecified site Multiple sclerosis 05/19/2005 DX:Multiple s clerosis (HCC) Scleritis, unspecified 05/19/2005 DX:Scleri tis, unspecified [...] Years Used Date Smoking Tobacco: Former Cigarettes 1 Q uit: 03/15/1996 Smokeless Tobacco: Never Alcohol Use Standard Drinks/Week Comments Yes 0 (1 standard drink = 0.6 oz pur e alcohol) occ Comments Unknown Sex and Gender Information Value Date Recorded Sex Assigned at Not on file Legal Sex Female 4:36 PM EST Gender Identity Not on file Sexual Orientation Not on file Obstetrics History Last Filed Vital Signs Vital Sign Reading Time Taken Comments Blood Pressure 150/80 10/25/2024 10:45 AM EDT Pulse 73 10/25/2024 10:45 AM EDT Temperature - - Respiratory Rate - - Oxygen Saturation 97% 10/25/2024 10: 45 AM EDT Inhaled Oxygen Concentration - - Weight 84.7 kg (186 lb 12.8 oz) 025 10:45 AM EDT Height 154.9 cm (5' 1 ) 10/25/2024 10:4 5 AM EDT Body Mass Index 35.3 10/25/2024 10:45 AM EDT Plan of Treatment Upcoming Encounters Date Type Department Care Team (Late st Contact Info) Description 05/15/2025 9:30 AM EST Ancillary Procedure [facility] [address] [facility] [address] [place] [address] Health Maintenance Due Date Last Done Comments Breast Cancer Screening 1962 Colorectal Cancer Screening: Colonoscopy 1962 Diabetes: Annual Foot Exam 1972 Diabetes: Annual Retina Eye Exam 1972 RSV Immunization Adult Patients (1 - Risk 50-74 years 1-dose series) 2012 Zoster Vaccines (1 of 2) 2012 Diabetes: Annual GFR (Glomerular Filtration Rate) 06/11/2014 06/11/2013 Cholesterol Screening (Lipid Panel) 05/15/2022 06/11/2013 HIV Screening 05/15/2022 Social Influencers of Health Screening 05/15/2022 Hypertension/CHF/CAD Annual BMP Blood Test 05/16/2022 06/11/2013 Diabetes: Annual Urine Albumin-Creatinine Ratio (uACR) 05/22/2022 06/14/2013 Diabetes: Blood Sugar Control Test (HGBA1C) 05/22/2022 06/11/2013 Depression Screening 06/06/2024 COVID-19 Vaccine ( season) 2025 10/22/2021, 05/20/2021, 08/25/2020, Additional history exists Influenza Vaccine (#1) 2025 , 05/09/2020, 04/15/2020, Additional history exists DTaP,Tdap,and Td Vaccines (4 - Td or Tdap) 06/26/2028 06/26/2018, 03/26/2008, 01/12/2008 Hepatitis C Screening Completed 06/11/2013 Pneumococcal Vaccine: 50+ Years Completed 11/08/2022, 04/17/2002 HIB Vaccines Aged Out No longer eligi [...] * Urine Albumin Creatinine Ratio (06/14/2013) Pathologist [facility] Urine Albumin Creatinine Ratio Abstracted Result [facility] HEALTH MAINTENANCE Final Result * Annual BMP Blood Test (06/11/2013) Pathologist [facility] Annual BMP Blood Test Abstracted Result [facility] HEALTH MAINTENANCE Final Result * Hepatitis C Screening (06/11/2013) Pathologist [facility] Hepatitis C Screening Abstracted Result [facility] HEALTH MAINTENANCE Final Result * (ABNORMAL) Hemoglobin A1c (06/11/2013) [facility] Hemoglobin A1C 6.1(A) 4.0 - 6.0 % Blood Venous blood specimen / Unknown Result [facility] LAB BLOOD ORDERABLES Leila l Result * (ABNORMAL) Lipid panel (06/11/2013) [facility] LDL/HDL Ratio 4 0 - 4 Triglycerides 144 0 - 150 mg/dL Cholesterol 189 0 - 200 mg/dL HDL 45 >=40 mg/dL LDL Cholesterol 116(A) 0 - 100 mg/dL Blood Venous blood specimen / Unknown Result [facility] Provider LAB BLOOD ORDERABLES Leila l Result from Last 3 Months or Most Recently Relevant to Health Maintenance Insurance [facility] Care Teams Mechanical Equipment Test Engineer Relationship Specialty Start Date End Date Liz Dhaliwal MD PCP - General 01/13/19
--- OUTSIDE RECORDS SUMMARY | 2025-05-08 16:57 | XMS_ITS | Encounter Summary ---
Author Organization [facility] Address [address] [place] [address] Phone Care Team Providers Care Front Office Manager Name Role Phone Liz Dhaliwal MD Primary Care Provider [phone] Eugenia Yap MD Unavailable [phone] Encounter Details Date Type Department Care Team (Late st Contact Info) Description 11/21/2017 Telephone [facility], Department of Neurology [address] [place] [address] [email or web address] Social History Tobacco Use Types Packs/Day Years [...] on filedocumented in this encounter Care Teams Front Office Manager Relationship Specialty Start Date End Date Liz Dhaliwal MD [address] [place] [address] PCP - General Internal Medicine 07/26/17 Eugenia Yap MD [address] [place] [address] [place] [id number] [email or web address] Thoracic Surgery 02/22/25 documented as of this encounter Additional Source Comments The information contained in this document represents components of the legal health record. It is not the complete legal health record.[facility]
== END 2025-05-08 14:45 | disposition home or self-care (01) ==
LOC: HO.HMCC 14:05
PROVIDERS: PCP Internal Medicine; Visit Provider Internal Medicine
DX: E11.9 Type 2 diabetes mellitus without complications (principal); I25.2 Old myocardial infarction; I10 Essential (primary) hypertension; E27.8 Other specified disorders of adrenal gland; R04.0 Epistaxis

== ENCOUNTER → 2025-05-08 14:04 | Outpatient (BNVA) | payer OTHER, SELFPAY | PROVIDERS: PCP Internal Medicine; Visit Provider Internal Medicine | DX: I10 Essential (primary) hypertension (principal); E11.9 Type 2 diabetes mellitus without complications; E78.5 Hyperlipidemia, unspecified; I21.4 Non-ST elevation (NSTEMI) myocardial infarction; E27.8 Other specified disorders of adrenal gland; R04.0 Epistaxis | CPT/HCPCS: 96127 ==

== ENCOUNTER 2025-05-24 10:27 | Outpatient (AMB) | payer OTHER, SELFPAY ==
[2025-05-24 10:38] VITALS: BP 138/70; PULSE 68; TEMP 36.7; O2SAT 97; BMI 36.7
--- NOTE | 2025-05-24 10:38 | AM.OFFWIN_ITS ---
Intake Vital Signs 05/24/25 10:38 Height 5 ft 1 in Weight 194 lb BMI 36.7 BP 138/70 Blood Pressure Location Lt brachial Position Sitting Pulse 68 Pulse Source Pulse Oximeter Temp 98.1 F Temp Source Oral Pulse Oximetry (%) 97 Oxygen Delivery Method Room Air Intake Visit Reasons: EP Mucus, fatigue, hoarse voice Intake Note: Patient presents c/o ear pain, cough, sore throat, phlegm, body aches, chest/sinus congestion, fatigue x5 days. Patient Tobacco Use Status: Former Tobacco user Allergies KARIN Inhibitors (KARIN INHIBITORS) Allergy (Severe, Verified 05/24/25 10:42) LIP SWELLING amoxicillin (AMOXICILLIN) Allergy (Severe, Verified 05/24/25 10:42) THROAT ITCHING, throat irritation Iodinated Contrast Media (IODINATED CONTRAST MEDIA - IV DYE) Allergy (Severe, Verified 05/24/25 10:42) HIVES/VOMITING benazepril Allergy (Intermediate, Verified 05/24/25 10:42) angioedema celecoxib (Celebrex) Allergy (Intermediate, Verified 05/24/25 10:42) hives atorvastatin Adverse Reaction (Severe, Verified 05/24/25 10:42) severe GI side effects all nsaids (leave per Gisela) Allergy (Intermediate, Uncoded 05/24/25 10:42) renal iodine Allergy (Intermediate, Uncoded 05/24/25 10:42) vomiting HPI HPI Comments History of Present Illness Details Tuesday onset of symptoms Feels like today is the worse + congestion, cough, mucus from lungs wi phlegm + brown phlegm without blood or black + sweating without documented fever + congestion, congested No ear pain or ST currently, was present on Tuesday No body aches + fatiigue and decreased appetite No nausea or vomiting She states some SOB with coughing. No wheezing No CP She has tried no medicine for symptoms aside from Ibuprofen and Nyquil Tea without relief No close sick contacts [facility] Medical History (Updated 05/24/25 @ 11:14 by Meghann Gaona PA-C) History of COVID- History of heart attack Crohn's disease Goiter Multiple sclerosis Annual physical exam Adrenal mass HTN (hypertension) Hyperlipidemia NSTEMI (non-ST elevated myocardial infarction) DM type 2 (diabetes mellitus, type 2) Weakness Surgical History H/O colonoscopy (10/26/21) History of esophagogastroduodenoscopy (EGD) Family History Mother Lung cancer Diabetes Heart disease Sister Diabetes HTN (hypertension) Sister Family history of thyroid problem HTN (hypertension) Social History Household Members Other:: sister and niece Housing: Condominium Housing Other:: [facility] Are you a primary rn care transition to a significant other at home: No Do you presently have visiting nurse or other home services: No Patient Tobacco Use Status: Former Tobacco user Tobacco use type: Cigarette e-Cigarette/Vaping Use: Never Used service: No Current occupational status: employed 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 Cognitive needs: No Hearing needs: No Vision needs: Yes Review of Systems Const Reports chills, Reports fatigue, Reports fever(s), Denies headache(s), Reports lethargy and Reports poor appetite Eyes Denies decreased night vision ENT Denies dizziness, Denies otalgia, Denies headache(s), Reports nasal congestion, Reports nasal discharge and Denies sore throat Card Denies chest pain and Denies syncope Resp Reports change in phlegm color, Reports chest congestion, Reports cough and Denies wheezing GI Denies abdominal pain, Denies diarrhea and Denies vomiting Musc Reports myalgias Neuro Denies dizziness, Denies syncope and Denies headache(s) Endo Reports fatigue Aller/Immun Denies wheezing Physical Exam Exam Exam: General: Non-toxic, NAD. Speaking full sentences. Skin: Warm dry throughout Eye: EOMI HENT: Airway patent. Uvula midline. No pharyngeal erythema or edema. No SOLDERING TECHNICIAN. Bilateral canals clear. TM non-erythematous, non-bulging. No TM perforation or hemotympanum noted. No sinus ttp frontal or maxillay Lymph: No lymphadenopathy palpated Respiratory: Rhonchi L mid lung withour rales or wheeze. No accessory muscle use or stridor. No respiratory distress Cardiac: RRR. No murmur MSK: Full ROM extremities. Neurology: Aler. No aphasia or facial droop. Gait without abnormality Psych: Good mood and affect Vital Signs: Last Vital Signs Temp 98.1 F 05/24/25 10:38 Pulse 68 05/24/25 10:38 BP 138/70 05/24/25 10:38 Pulse Ox 97 05/24/25 10:38 Oxygen Delivery Method Room Air 05/24/25 10:38 BMI result Body Mass Index 36.7 Assessment & Plan Assessment & Plan (1) Acute bacterial bronchitis: Code(s): J20.8 - Acute bronchitis due to other specified organisms; B96.89 - Other specified bacterial agents as the cause of diseases classified elsewhere Plan: Patient seen and evaluated. Lungs + rhonchi Will cover with azithromycin Increase fluids/rest Tessalon for cough F/U with PCP Patient gave verbal understanding and had no additional questions or concerns at time of discharge All questions answered Medications: New azithromycin For 250 mg dose pack: take 500 mg today (day 1), then 250 mg for 4 days (days 2-5) PO 6 tabs 0RF benzonatate 100 mg PO BID-TID PRN 14 caps 0RF cough Coding Level of Care Code Est Pt Level 3 (87745) Diagnoses Acute bacterial bronchitis J20.8; B96.89
--- OUTSIDE RECORDS SUMMARY | 2025-05-24 12:00 | XMS_ITS | Patient Health Record ---
Author Organization [facility] Address [address] [place] [address] Care Team Providers Care Business Broker Name Role Phone Liz Dhaliwal MD Primary Care Provider Tim Oneill Unavailable [phone] Allergies Allergen (clinical drug ingredient) Drug/Non Drug [...] Status Risk Notes Problem Acquired hallux valgus (89013400) Hallux valgus (acquired), right foot (M20.11) Active confirmed Problem Acquired hallux rigidus (4770399) Hallux rigidus, left foot (M20.22) Active confirmed Problem Polyneuropathy due to type 2 diabetes mellitus (917007067) Type 2 diabetes mellitus with diabetic polyneuropathy (E11.42) Active confirmed Plan Of Treatment Pending Test Test Name Order Date X ray : Foot, left 3V 03/11/2022 X ray : Foot, right 3V 03/11/2022 Insurance Providers Payer Name Payer Address Payer Phone Subscriber Number Group Number Insured Name Patient Relationship to Insured Coverage Start Date Coverage End Date [facility] [id number] [place] [phone] [id number] Mayra Lou Self - patient is the [...]
--- OUTSIDE RECORDS SUMMARY | 2025-05-24 12:00 | XMS_ITS | Encounter Summary ---
Author Organization [facility] Address [address] [place] [address] Phone Care Team Providers Care Gyroscopic Instrument Tester Name Role Phone Liz Dhaliwal MD Primary Care Provider [phone] Eugenia Yap MD Unavailable [phone] Encounter Details Date Type Department Care Team (Late st Contact Info) Description 08/01/2017 Procedure Pass [facility] MR Imaging, [facility] [address] [place] [address] Social History Tobacco Use Types Packs/Day Years [...] on filedocumented in this encounter Care Teams Gyroscopic Instrument Tester Relationship Specialty Start Date End Date Liz Dhaliwal MD [address] [place] [address] PCP - General Internal Medicine 07/26/17 Eugenia Yap MD [address] [place] [address] [place] [id number] [email or web address] Thoracic Surgery 02/22/25 documented as of this encounter Additional Source Comments The information contained in this document represents components of the legal health record. It is not the complete legal health record.[facility]
--- OUTSIDE RECORDS SUMMARY | 2025-05-24 12:00 | XMS_ITS | Encounter Summary ---
Author Organization [facility] Address [address] [facility] [address] [place] [address] Phone Care Team Providers Care Ged Teacher Name Role Phone Liz Dhaliwal MD Primary Care Provider [phone] Eugenia Yap MD Unavailable [phone] Encounter Details Date Type Department Care Team (Late st Contact Info) Description 08/01/2017 Procedure Pass [facility] MR Imaging, [facility] [address] [place] [address] Social History Tobacco Use Types Packs/Day Years [...] on filedocumented in this encounter Care Teams Ged Teacher Relationship Specialty Start Date End Date Liz Dhaliwal MD [address] [place] [address] PCP - General Internal Medicine 07/26/17 Eugenia Yap MD [address] [place] [address] [place] [phone] [email or web address] Thoracic Surgery 02/22/25 documented as of this encounter Additional Source Comments The information contained in this document represents components of the legal health record. It is not the complete legal health record.[facility]
--- OUTSIDE RECORDS SUMMARY | 2025-05-24 12:00 | XMS_ITS | Encounter Summary ---
Author Organization [facility] Address [address] [place] [address] Phone Care Team Providers Care Hvac R Tech Name Role Phone Liz Dhaliwal MD Primary Care Provider [phone] Eugenia Yap MD Unavailable [phone] Encounter Details Date Type Department Care Team (Late st Contact Info) Description 11/21/2017 Telephone [facility] [address] [place] [address] Devi [email or web address] Social History Tobacco Use Types Packs/Day [...] on filedocumented in this encounter Care Teams Hvac R Tech Relationship Specialty Start Date End Date Liz Dhaliwal MD [address] [place] [address] PCP - General Internal Medicine 07/26/17 Eugenia Yap MD [address] [place] [address] [place] [id number] [email or web address] Thoracic Surgery 02/22/25 documented as of this encounter Additional Source Comments The information contained in this document represents components of the legal health record. It is not the complete legal health record.[facility]
--- OUTSIDE RECORDS SUMMARY | 2025-05-24 12:00 | XMS_ITS | Encounter Summary ---
Author Organization [facility] Address [address] [place] [address] Phone Care Team Providers Care Diesel Engine Tester Name Role Phone Liz Dhaliwal MD Primary Care Provider [phone] Eugenia Yap MD Unavailable [phone] Encounter Details Date Type Department Care Team ([facility] Contact Info) Description 03/28/2024 Telephone VIRTUAL DEPARTMENT [address] [place] [phone] Eugenia Yap MD [address] [place] [id number] [email or web address] [...] on filedocumented in this encounter Care Teams Diesel Engine Tester Relationship Specialty Start Date End Date Liz Dhaliwal MD [address] [place] [address] PCP - General Internal Medicine 07/26/17 Eugenia Yap MD [address] [place] [id number] [email or web address] Thoracic Surgery 02/22/25 documented as of this encounter Additional Source Comments The information contained in this document represents components of the legal health record. It is not the complete legal health record.[facility]
--- OUTSIDE RECORDS SUMMARY | 2025-05-24 12:00 | XMS_ITS | Encounter Summary ---
Author Organization [facility] Address [address] [place] [address] Phone Care Team Providers Care Laboratory Administrative Director Name Role Phone Liz Dhaliwal MD Primary Care Provider [phone] Eugenia Yap MD Unavailable [phone] Encounter Details Date Type Department Care Team (Late st Contact Info) Description 08/01/2017 Procedure Pass [facility] MR Imaging, [place] [address] [place] [address] Social History Tobacco Use Types Packs/Day Years [...] on filedocumented in this encounter Care Teams Laboratory Administrative Director Relationship Specialty Start Date End Date Liz Dhaliwal MD [address] [place] [address] PCP - General Internal Medicine 07/26/17 Eugenia Yap MD [address] [place] [address] [place] [id number] [email or web address] Thoracic Surgery 02/22/25 documented as of this encounter Additional Source Comments The information contained in this document represents components of the legal health record. It is not the complete legal health record.[facility]
--- OUTSIDE RECORDS SUMMARY | 2025-05-24 12:00 | XMS_ITS | Encounter Summary ---
Author Organization [facility] Address [address] [place] [address] Phone Care Team Providers Care Cleaner Carpet And Upholstery Name Role Phone Liz Dhaliwal MD Primary Care Provider [phone] Eugenia Yap MD Unavailable [phone] Encounter Details Date Type Department Care Team ([facility] st Contact Info) Description 03/28/2024 Procedure Pass [facility] [place] [address] [facility], [address]th [place] [address] Social History Tobacco Use Types Packs/Day Years [...] on filedocumented in this encounter Care Teams Cleaner Carpet And Upholstery Relationship Specialty Start Date End Date Liz Dhaliwal MD [address] [place] [phone] PCP - General Internal Medicine 07/26/17 Eugenia Yap MD [address] [place] [phone] [email or web address] Thoracic Surgery 02/22/25 documented as of this encounter Additional Source Comments The information contained in this document represents components of the legal health record. It is not the complete legal health record.[facility]
--- OUTSIDE RECORDS SUMMARY | 2025-05-24 12:01 | XMS_ITS | Clinical Summary ---
Author Organization [facility] Address [address] [facility] [facility] [address] [place] [address] Phone Care Team Providers Care Bridge Operator Slip Name Role Phone Liz Dhaliwal MD Primary Care Provider Eugenia Yap MD Unavailable [phone] Allergies Active Allergy Reactions Criticality Noted [...] 8:30 AM EDT Telemedicine - audio only [facility] [address] [facility], 7th [place] [address] Eugenia Yap MD Solitary pulmonary nodule (Primary [...] * POCT Creatinine/eGFR (10/27/2017 10:09 AM EDT) [facility] CRE POC 0.8 0.5 - 1.2 mg/dL JV EGFR POC 83 >59 mL/min/1.7 3m2 [facility] Comment:If patient is black, multiply result by 1.159. Estimated glomerular filtration rate calculated using the CKD-EPI equation. 10/27/2017 10:0 9 AM EDT 10/27/2017 10:11 AM EDT Jackson Farrar MD POINT OF CARE TEST ORDERABLES Final Result [facility] from Last 3 Months or Most Recently Relevant to Health Maintenance Insurance [facility] EX[employer] POS [facility] [facility] [employer] [facility] [facility] EXPL[employer]ER POS [facility] EX[employer] POS HC EXPLORER POS Care Teams Bridge Operator Slip Relationship Specialty Start Date End Date Liz Dhaliwal MD [address] [facility] [place] [address] PCP - General Internal Medicine 07/26/17 Eugenia Yap MD [address] [place] [id number] [email or web address] Thoracic Surgery 02/22/25 Additional Source Comments The information contained in this document represents components of the legal health record. It is not the complete legal health record.[facility]
--- OUTSIDE RECORDS SUMMARY | 2025-05-24 12:01 | XMS_ITS | Encounter Summary ---
Author Organization [facility] Address [address] [facility] [address] [place] [address] Phone Care Team Providers Care Train Operator Name Role Phone Liz Dhaliwal MD Primary Care Provider [phone] Eugenia Yap MD Unavailable [phone] Encounter Details Date Type Department Care Team (Late st Contact Info) Description 07/10/2024 Procedure Pass [facility], [place] [address] [facility], 2[address], [address] [place] [address] Social History Tobacco Use Types Packs/Day Years [...] on filedocumented in this encounter Care Teams Train Operator Relationship Specialty Start Date End Date Liz Dhaliwal MD [address] [place] [address] PCP - General Internal Medicine 07/26/17 Eugenia Yap MD [address] [place] [phone] [email or web address] Thoracic Surgery 02/22/25 documented as of this encounter Additional Source Comments The information contained in this document represents components of the legal health record. It is not the complete legal health record.[facility]
--- OUTSIDE RECORDS SUMMARY | 2025-05-24 12:01 | XMS_ITS | Clinical Summary ---
Author Organization [facility] Address [address] [place] [address] Phone Care Team Providers Care Fur Finisher Name Role Phone Liz Dhaliwal MD Primary Care Provider [phone] Allergies Active Allergy Reactions Criticality Noted Date [...] Active cholecalciferol (VITAMIN D-3) 5,000 Units tablet Vitamin d3 with k 2 Active empagliflozin (Jardiance) 25 mg tablet Take [...] once daily 90 tablet 3 02/01/2025 Active Hospital, Clinic, or Other Facility Administered Medication Ordered Dose Route Frequency Start Date End Date Status TC-99M tetrofosmin P radio-isotope injection 12 millicurie 12 millicurie IV Once in imaging 05/15/2025 05/15/2025 Ended regadenoson (LEXISCAN) injection 0.4 mg 0.4 mg IV Once in imaging 05/15/2025 05/15/2025 End ed TC-99M tetrofosmin P radio-isotope injection 36.1 millicurie 36.1 millicurie IV Once in imaging 05/15/2025 05/15/2025 Ende d Active Problems Problem Noted Date Diagnosed Date Preop cardiovascular exam 10/25/2024 Assessment & Plan (10/25/2024 11:40 AM EDT): Upcoming colonoscopy. Low risk from our standpoint. No preop testing recommended. Continue with aspirin, carvedilol and felodipine perioperatively. May interrupt empagliflozin. 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 Luu MAMMOGRAM ZABRINA 06/12 PROCEDURE: MAMMOGRAM, SCREENING, BOTH BREASTS; COMMENT: neg OTHER SURGICAL HISTORY 08/09 PROCEDURE: PAP SMEAR (1 SLIDE); COMMENT: Coretta; neg PARTIAL HYSTERECTOMY 11/07/06 PROCEDURE: [place] SUPRACERVICAL ABDL HYSTER W/WO RMVL TUBE OVARY; COMMENT: Harmanli; Midurethral sling OTHER SURGICAL HISTORY 12/06 PROCEDURE: OH CV STRS TST XERS&/OR RX CONT ECG W/SI&R; COMMENT: neg TONSILLECTOMY PROCEDURE: HISTORICAL TONSILLECTOMY HYSTERECTOMY 2006 PROCEDURE: HISTORICAL HYSTERECTOMY; COMMENT: partial vag fibroids KNEE ARTHROSCOPY 04/14 PROCEDURE: [place] ARTHROSCOPY KNEE DIAGNOSTIC W/WO SYNOVIAL BX SPX; COMMENT: Ackland; Left TOTAL KNEE ARTHROPLASTY 05/18 PROCEDURE: OH ARTHRP KNE CONDYLE&PLATU MEDIAL&LAT COMPARTMENTS; COMMENT: Left [...] Sign Reading Time Taken Comments Blood Pressure 116/73 05/15/2025 10:06 AM EST Pulse 73 10/25/2024 10:45 AM EDT Temperature - - Respiratory Rate - - Oxygen Saturation 97% 10/25/2024 10:45 AM EDT Inhaled Oxygen Concentration - - Weight 86.9 kg (191 lb 9.6 oz) 05/15/2025 9:46 A M EST Height 154.9 cm (5' 1 ) 05/15/2025 9:46 AM EST Body Mass Index 36.2 05/15/2025 9:46 AM EST Plan of Treatment Health Maintenance Due [...] Procedure Name Priority Date/Time Associated Diagnosis Comments NM LEXISCAN STRESS TEST W/ MYOCARDIAL PERFUSION Routine 05/15/2025 12:56 PM EST Coronary artery disease involving little traverse coronary artery of little traverse heart without angina pectoris URINE ALBUMIN CREATININE RATIO Routine 06/14/2013 HEPATITIS C SCREENING Routine 06/11/2013 ANNUAL BMP BLOOD TEST Routine 06/11/2013 HEMOGLOBIN A1C Routine 06/11/2013 LIPID PANEL Routine 06/11/2013 from Last 3 Months or Most Recently Relevant to Health Maintenance Results * NM LEXISCAN STRESS TEST W/ MYOCARDIAL PERFUSION (05/15/2025 12:56 PM EST) Exercise/injec tion duration (min) 1 CV PACS STRESS Exercise/injec tion duration (sec) 3 CV PACS STRESS Peak SBP 100 mmHg CV PACS STRESS Peak DBP 70 mmHg CV PACS STRESS Peak HR 87 bpm CV PACS STRESS Baseline HR 59 bpm CV PACS STRESS Baseline SBP 116 mmHg CV PACS STRESS Baseline DBP 73 mmHg CV PACS STRESS Estimated workload 1.0 METS CV PACS STRESS Percent HR 55 % CV PACS STRESS Rate Pressure Product 8,700.0 mmHg*bpm CV PACS STRESS Target HR 134 bpm CV PACS STRESS TID 1.23 CV PACS STRESS Nuc Rest EF 75 % CV PACS STRESS BSA 1.93 m2 CV PACS STRESS Anatomical Region Laterality Modality Nuclear Medicine 05/15/2025 10:4 5 AM EST 05/15/2025 11:12 AM EST Impressions 05/16/2025 11:58 AM EST 1. Normal pharmacological nuclear stress test. 2. Symptoms: No chest pain during the regadenoson infusion 3. Stress ECG: No ischemic ECG changes with the regadenoson infusion, in the setting of abnormal baseline 4. Myocardial perfusion imaging: - Myocardial perfusion imaging revealed no areas of ischemia or infarction after attenuation correction was applied. 5. TID was normal at 1.23. 6. Gated images revealed normal LV wall motion and thickening; with a normal LV systolic function (LVEF 75%). 7. There is evidence of significant multivessel coronary artery calcifications which were noted on the CT scan images obtained for attenuation correction. Narrative 05/16/2025 11:58 AM EST Stress Findings A pharmacological stress test was performed using regadenoson, 0.4 mg IV over 10-15 seconds, followed by radiopharmacological injection 10 seconds post infusion. Total stress time was 1 min and 3 sec. The patient reached the end of the protocol. Blood pressure demonstrated a normal response. Heart rate demonstrated a normal response. The patient reported no symptoms during the stress test. ECG 64 yo female with CAD and occasional exertional chest pain. Unable to walk on the treadmill. The ECG shows normal sinus rhythm Nonspecific T wave abnormality No significant ischemic changes in the setting of an abnormal baseline No significant ischemic changes in the setting of an abnormal baseline Nuclear Study Quality Study technique: MPI, SPECT, multi, rest and stress, 1 day. Overall image quality is good. CT attenuation correction was utilized. There are no artifacts present. The gated images were technically difficult. Stress not gatedThere was no increased lung uptake of the radiopharmaceutical. No radiopharmaceutical dose was extravasated. The time from injection to rest imaging is 40 mins. The time from injection to stress imaging is 35 mins. Perfusion Defect Conclusion There is no evidence of transient ischemic dilation (TID). Stress Function Comments not gated Rest Function Comments Left ventricular function at rest was normal. Resting ejection fraction was 75%. Stress Combined Conclusion SCAN FINDINGS: Nuclear imaging of the left ventricle reveals normal cavity size at rest with no change with stress imaging. Myocardial perfusion imaging of the left ventricle revealed evidence of a small in size and moderate in intensity mostly fixed perfusion defect in the basal to apical inferior wall. The raw images demonstrate the presence of soft tissue attenuation. CT attenuation correction was applied to the study which completely corrects the previously mentioned perfusion abnormality. Hence, the previously mentioned fixed effusion abnormality was likely secondary to a soft tissue attenuation artifact. No evidence of ischemia or infarct on the myocardial perfusion imaging after attenuation correction was applied. Gated SPECT imaging was performed which demonstrated normal LV function and thickening with a calculated LVEF of 75% CT Findings There is evidence of significant multivessel coronary artery calcifications which were noted on the CT scan images obtained for attenuation correction. Perfusion Scoring Resting Summed Score: 0 Percent Normal: 0.00% The left ventricular perfusion is normal. AC resting images Perfusion Scoring Stress Summed Score: 0 Percent Normal: 0.00% The left ventricular perfusion is normal. AC stress images Perfusion Scores: SRS Score: 0 Percentage Abnormal: 0.00% Perfusion Scores: SSS Score: 0 Percentage Abnormal: 0.00% Perfusion Scores: SDS Score: 0 Percentage Abnormal: 0.00% Result [facility] Rodolfo Oliveira MD CV STRESS PROCEDURES Final Res ult * Urine Albumin Creatinine Ratio (06/14/2013) [facility] Urine Albumin Creatinine Ratio [facility]ed Result [facility]IN[facility]NANCE Final Result * Annual BMP Blood Test (06/11/2013) [facility] Annual BMP Blood Test Abstracted Result [facility] MAINTENAN[facility] Final Result * Hepatitis C Screening (06/11/2013) [facility] Hepatitis C Screening Abstracted Result [facility] Final Result * (ABNORMAL) Hemoglobin A1c (06/11/2013) [facility] Hemoglobin A1C 6.1(A) 4.0 - 6.0 % Blood Venous blood specimen / Unknown Result [facility] LAB BLOOD ORDERABLES Leila l Result * (ABNORMAL) Lipid panel (06/11/2013) [facility] LDL/HDL Ratio 4 0 - 4 Triglycerides 144 0 - 150 mg/dL Cholesterol 189 0 - 200 mg/dL HDL 45 >=40 mg/dL LDL Cholesterol 116(A) 0 - 100 mg/dL Blood Venous blood specimen / Unknown us Historical Provider LAB BLOOD ORDERABLES Leila l Result from Last 3 Months or Most Recently Relevant to Health Maintenance Insurance [facility] Care Teams Fur Finisher Relationship Specialty Start Date End Date Liz Dhaliwal MD PCP - General 01/13/19
== END 2025-05-24 11:12 | disposition home or self-care (01) ==
PROVIDERS: PCP Internal Medicine; Visit Provider Physician Assistant
DX: J20.8 Acute bronchitis due to other specified organisms (principal); B96.89 Other specified bacterial agents as the cause of diseases classified elsewhere